=== PATIENT | female | born 1990 | race Caucasian/White ===

== ENCOUNTER 2017-10-21 07:30 | Outpatient (RCR) | payer OTHER, MEDICAID, SELFPAY ==
--- NOTE | 2017-10-13 15:49 | PT.OTN ---
Current Diagnoses Other intervertebral disc displacement, lumbar region (10/14/17) Radiculopathy, lumbar region (10/14/17) Transition note: On October 13, 2017 our therapy services consisting of Speech, Occupational, and Physical Therapy transitioned from the [employer] electronic documentation system to a new [employer] electronic documentation system.?? All documentation prior to October 13 can be found under [employer] saved data. From October 13 forward all medical record documentation will be in [employer]1.
--- NOTE | 2017-10-14 09:39 | PT.OTN ---
Current Diagnoses Other intervertebral disc displacement, lumbar region (10/14/17) Radiculopathy, lumbar region (10/14/17) Physical Therapy Treatment Note PT-OP-A Visit Information Start: 10/14/17 09:12 Freq: Status: Active Protocol: Activity Type Activity Date Activity User E-Sign Co-Sign Detail Recorded Client Recorded Date Recorded By Document 10/14/17 09:13 AMB [email or web address] 10/14/17 09:39 AMB 10/14/17 09:13 Out-Patient Physical Therapy Visit Information [Visit Information] -Visit Type Treatment Note -Visit Note 24 visits per calendar year from insurance, POC expires . -Visit Start Time 07:30 -Visit Stop Time 08:15 -Total Visit Minutes 45 -Visit Number 9 PT-OP-C Subjective Start: 10/14/17 09:12 Freq: Status: Active Protocol: Activity Type Activity Date Activity User E-Sign Co-Sign Detail Recorded Client Recorded Date Recorded By Document 10/14/17 09:13 AMB [email or web address] 10/14/17 09:39 AMB 10/14/17 09:13 OP-PT Subjective [Patient Comments] -Patient Comments Pt has an appointment with Dr. Doe later today and they will discuss return to work. -Patient Reported Progress Improving PT-OP-Q Treatments Start: 10/14/17 09:12 Freq: Status: Active Protocol: Activity Type Activity Date Activity User E-Sign Co-Sign Detail Recorded Client Recorded Date Recorded By Document 10/14/17 09:13 AMB [email or web address] 10/14/17 09:39 AMB 10/14/17 09:13 Cardio Equipment [Elliptical] -Duration (Minutes) 5 -Resistance 4 Gym Equipment [Shuttle Balance] 1 -Details RED squats EO -Reps/Duration 2x10 Therapeutic Exercises [Supine Exercises] 1 -Supine Exercise Name From 90-90 tap down -Reps/Minutes 2 x10 [Prone Exercises] 1 -Prone Exercise Name Quadruped hip extension -Side bilateral -Reps/Minutes 2x10 [Sidelying Exercises] 1 -Sidelying Exercise Name hip abduction -Side right -Reps/Minutes 2x10 [Standing Exercises] 2 -Standing Exercise Name Single leg heel raise -Side right -Reps/Minutes 4x5 1 -Standing Exercise Name calf stretch -Side bilateral -Equipment Used SABINA -Reps/Minutes 30 sec x3 Manual Therapy Treatment [Soft Tissue Mobilization] 1 -Body Location Low back -Mobilization Type Cross-Friction -Intensity/Depth Superficial -Body Position Sidelying -Comments 1 scab at proximal end of scar PT-OP-T Assessment and Plan Start: 10/14/17 09:12 Freq: Status: Active Protocol: Activity Type Activity Date Activity User E-Sign Co-Sign Detail Recorded Client Recorded Date Recorded By Document 10/14/17 09:13 AMB [email or web address] 10/14/17 09:39 AMB 10/14/17 09:13 Physical Therapy Assessment [Assessment Summary] -Assessment The patient states that she is doing better with being aware of her body mechanics, she is hoping to return to work soon, but was encouraged to go slow and be very aware of her mechanics. Physical Therapy Plan [Next Visit Focus/Plan] -Next Visit Plan Progress stabilization, progress lifting technique for return to work.
--- NOTE | 2017-10-21 09:21 | PT.OTN ---
Current Diagnoses Other intervertebral disc displacement, lumbar region (10/21/17) Radiculopathy, lumbar region (10/21/17) Physical Therapy Treatment Note PT-OP-A Visit Information Start: 10/14/17 09:12 Freq: Status: Active Protocol: Document 10/21/17 07:43 AMB (Rec: 10/21/17 07:46 AMB [id number]) Out-Patient Physical Therapy Visit Information Visit Information Visit Type Treatment Note Visit Note 24 visits per calendar year, POC expires 11/09. Visit Start Time 07:30 Visit Stop Time 08:15 Total Visit Minutes 45 Visit Number 10 Evaluation Information Evaluation Date 09/10/17 PT-OP-C Subjective Start: 10/14/17 09:12 Freq: Status: Active Protocol: Document 10/21/17 07:48 AMB (Rec: 10/21/17 07:50 AMB [id number]) OP-PT Subjective Patient Comments Patient Comments Pt is back at work now. Sore in muscles, but otherwise feeling well. Denies back pain. Patient Reported Progress Improving PT-OP-Q Treatments Start: 10/14/17 09:12 Freq: Status: Active Protocol: Document 10/21/17 09:03 AMB (Rec: 10/21/17 09:21 AMB [id number]) Therapeutic Exercises Supine Exercises 5 Supine Exercise Name lower trunk rotation Reps/Minutes 10 4 Supine Exercise Name Bridge Reps/Minutes 2 x 12 3 Supine Exercise Name calf stretch Reps/Minutes 30 sec x 4 2 Supine Exercise Name hamstring stretch Reps/Minutes 30 sec x 4 1 Supine Exercise Name From 90-90 tap down Reps/Minutes 2 x10 Therapeutic Activity Therapeutic Activity 1 Name lifting training Reps/Minutes 15 min Comments 10 # floor to waist, waist to head height. May need a step stool to safely get laundry bags into main hamper (above head). Manual Therapy Treatment Soft Tissue Mobilization 1 Body Location Low back Mobilization Type Cross-Friction Intensity/Depth Superficial Body Position Sidelying Comments Completely closed, scar tissue more at proximal edge. 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 Physical Therapy Plan Next Visit Focus/Plan Next Visit Plan Progress lifting technique, at 10 # currently without issue
--- NOTE | 2017-12-01 08:09 | PT.OPDS ---
Current Diagnoses Other intervertebral disc displacement, lumbar region (10/21/17) Radiculopathy, lumbar region (10/21/17) Provider Visit Care Team Role Provider Type Kirk Holland MD Family Provider Physician Primary Care Provider Specialty: Family Practice Address: [facility] [place], [address] Email: [email or web address] Carissa Charles PA-C Attending Provider Physician Dining Car Conductor Specialty: Orthopedic Surgery Address: [address] [place] [address], [id number] Email: [email or web address] Visit Number Visit Number 9 Discharge Summary PT-OP-C Subjective Start: 10/14/17 09:12 Freq: Status: Active Protocol: Document 10/21/17 07:48 AMB (Rec: 10/21/17 07:50 AMB [id number]) OP-PT Subjective Patient Comments Patient Comments Pt is back at work now. Sore in muscles, but otherwise feeling well. Denies back pain. Patient Reported Progress Improving PT-OP-T Assessment and Plan Start: 10/14/17 09:12 Freq: Status: Active Protocol: Document 12/01/17 07:57 AMB (Rec: 12/01/17 08:09 AMB [email or web address]) Physical Therapy Assessment Goals 1 Impairment Lift/carry Short Term Goal (STG) The patient will lift 10 pounds from floor to waist height with good body mechanics without an increase in back pain. MET STG Duration 4 weeks Rehab Office Coordinator Goal (LTG) The patient will be able to perform modified work activities for 8 hours without increasing her back pain. MET LTG Duration 8 weeks Assessment Summary Assessment The patient was seen for a total of 10 visits. At the time of her last visit on October 21, she had returned to work and was careful with how she was moving, and overall did not feel back pain or radiating leg pain with work. She continued to have some core and right leg weakness at her last visit. Physical Therapy Plan Discharge Physical Therapy Discharge Reasons No Longer Attending PT Discharge Comments The patient has been quite sick with a respiratory illness. She stated that she would like to return to PT for a few more visits, but wants to be well first. Since she has not attended PT in 40 days , she would be welcome to return to PT when she is feeling better, but will need a new referral at that time.
== END 2017-12-02 15:01 ==
LOC: PHYS 07:30
PROVIDERS: Family Provider Family Medicine; PCP Family Medicine; Visit Provider Physician Assistant
DX: M51.26 Other intervertebral disc displacement, lumbar region (principal); M54.16 Radiculopathy, lumbar region
CPT/HCPCS: 97110; 97140; 97530

== ENCOUNTER → 2017-11-27 07:06 | Outpatient (CLI) | payer OTHER, MEDICAID, SELFPAY ==
--- NOTE | 2017-11-27 | DI.RAD.S_ITS ---
PROCEDURE: FL UPPER GI W AIR INDICATIONS: 27 year-old female with new onset of throat soreness and dysphagia. COMPARISON: None. 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 Intrauterine contraceptive device is present. No suspicious abdominal calcifications. Visualized solid organ contours appear normal. Bony structures appear unremarkable. Esophagus: Esophageal and pharyngeal mucosa is normal on air-contrast views. On single-contrast views, there is normal esophageal peristalsis. No strictures, extrinsic mass effects, or diverticula. There is small hiatal hernia, and small elicited gastroesophageal reflux with patient rollover. There is normal transit of a calibrated barium tablet through the esophagus. Stomach: The stomach is normally distensible, with normal rugal fold thickness. No mucosal masses or ulcers. Pylorus and duodenal bulb appear normal in morphology. Duodenal folds are normal in thickness as well. 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 IMPRESSION: 1. Small hiatal hernia, as well as small elicited gastroesophageal reflux during the exam. 2. No mucosal abnormalities of the stomach, esophagus, or pharynx identified. Dictated by: Jason Rutledge M.D. on 11/27/2017 at 8:34 Approved by: Jason Rutledge M.D. on 11/27/2017 at 8:37
== END ==
PROVIDERS: Family Provider Family Medicine; PCP Family Medicine; Visit Provider Family Medicine
DX: R13.10 Dysphagia, unspecified (principal); K44.9 Diaphragmatic hernia without obstruction or gangrene; K21.9 Gastro-esophageal reflux disease without esophagitis
CPT/HCPCS: 74247

== ENCOUNTER → 2018-05-05 09:47 | Outpatient (CLI) | payer SELFPAY | DX: Z23 Encounter for immunization (principal) | CPT/HCPCS: 90471; 90686 ==

== ENCOUNTER → 2018-12-17 09:10 | Outpatient (CLI) | payer OTHER, MEDICAID, SELFPAY ==
--- NOTE | 2018-12-17 | DI.US.S_ITS ---
PROCEDURE: US PELVIC COMPLETE INDICATIONS: PAIN TECHNIQUE: Real-time scanning was performed of the pelvic organs, with image documentation. Additional endovaginal scanning was necessary due to incomplete visualization of the adnexal and endometrial structures by transabdominal scanning. COMPARISON: [facility], , PELVIC COMPLETE, 06/05/2012, 19:36. FINDINGS: Transabdominal scanning: Limited scanning through the kidneys shows no hydronephrosis. No pathologic free abdominal or pelvic fluid. Endovaginal scanning: Uterus: Uterus is normal in size at 9.0 x 4.4 x 5.0 cm. The endometrium measures 9 mm in combined thickness. An intrauterine device is visualized within the endometrial cavity and appropriately positioned. Ovaries: The right ovary measures 2.6 x 1.6 x 2.6 cm. The left ovary measures 3.3 x 1.7 x 1.8 cm. Possible isoechoic lesion in the left ovary measuring approximately 1.7 cm in maximum dimension which may represent a collapsing cyst versus isoechoic mass versus artifact. IMPRESSION: 1. An intrauterine device is identified within the endometrial cavity and appears to be appropriately positioned. 2. A possible 1.7 cm isoechoic focus within the left ovary with peripheral vascularity which may represent artifact versus a collapsing cyst versus isoechoic mass. Recommend followup pelvic ultrasound in 8-12 weeks to document stability versus resolution. 3. Otherwise, unremarkable pelvic ultrasound. Dictated by: Helio Hughes M.D. on 12/17/2018 at 9:59 Approved by: Helio Hughes M.D. on 12/17/2018 at 10:08
== END ==
PROVIDERS: Family Provider Family Medicine; PCP Family Medicine; Visit Provider Nurse Practitioner Family
DX: R10.2 Pelvic and perineal pain (principal); Z97.5 Presence of (intrauterine) contraceptive device
CPT/HCPCS: 76830; 76856

== ENCOUNTER → 2019-03-18 09:11 | Outpatient (CLI) | payer OTHER, MEDICAID, SELFPAY ==
--- NOTE | 2019-03-18 | DI.US.S_ITS ---
PROCEDURE: US PELVIC COMPLETE INDICATIONS: FOLLOW-UP LEFT OVARIAN CYST TECHNIQUE: Real-time scanning was performed of the pelvic organs, with image documentation. Additional endovaginal scanning was necessary due to incomplete visualization of the adnexal and endometrial structures by transabdominal scanning. COMPARISON: [facility], , US PELVIC COMPLETE, 12/17/2018, 9:25. FINDINGS: Transabdominal scanning: Limited scanning through the kidneys shows no hydronephrosis. No pathologic free abdominal or pelvic fluid. Endovaginal scanning: Uterus: Uterus is normal in size at 8.7 x 4.1 x 5.1 cm. The endometrium measures 5.3 mm in combined thickness. Intrauterine device in expected position. Ovaries: Physiologic cyst associated with the left ovary has resolved and the ovaries are normal measuring 3.0 x 1.9 x 2.7 cm on the right and 3.1 x 1.6 x 1.2 cm on the left. IMPRESSION: Resolved left ovarian cyst. Dictated by: Maxi Hodge [facility] Interpreted: Nhi Leigh MD on 03/18/2019 at 10:09 Approved by: Nhi Leigh M.D. on 03/21/2019 at 18:47
== END ==
PROVIDERS: Family Provider Family Medicine; PCP Family Medicine; Visit Provider Nurse Practitioner Family
DX: R93.89 Abnormal findings on diagnostic imaging of other specified body structures (principal); Z97.5 Presence of (intrauterine) contraceptive device; Z87.42 Personal history of other diseases of the female genital tract
CPT/HCPCS: 76830; 76856

== ENCOUNTER → 2019-04-20 11:18 | Outpatient (CLI) | payer OTHER, SELFPAY ==
--- NOTE | 2019-04-20 | DI.RAD.S_ITS ---
PROCEDURE: [place] SHOULDER INJECTION MR/CT RT INDICATIONS: Right shoulder pain. TECHNIQUE: The indications, alternatives, benefits, risks, and complications of the procedure were explained to the patient. Written informed consent was obtained and placed in the chart. The shoulder was examined fluoroscopically and a site for needle placement chosen for entry into the right glenohumeral joint from an anterior approach. The skin was prepped and draped in a sterile fashion, and 1% lidocaine infiltrated from skin down to joint capsule. A spinal needle was inserted into the glenohumeral joint, and a small amount of iodinated contrast media injected to confirm intra-articular placement of the needle tip. This was followed by approximately 12 mL dilute solution of a gadolinium containing MR contrast agent. The needle was removed and a dressing was applied. The patient was given postprocedural instructions and sent to the MR suite for MR imaging. FINDINGS: A single fluoroscopic spot image demonstrates intra-articular location of injected iodinated contrast. IMPRESSION: Successful fluoroscopically guided administration of dilute Gadolinium solution into the right shoulder joint for MR arthrogram. Dictated by: Juan David James M.D. on 04/20/2019 at 13:06 Approved by: Juan David James M.D. on 04/20/2019 at 13:08
--- NOTE | 2019-04-20 | DI.MRI.S_ITS ---
PROCEDURE: MR SHOULDER RT W CON INDICATIONS: right shoulder pain TECHNIQUE: After the administration of 12 mL of dilute intra-articular Gadolinium contrast, oblique coronal T1 and T2 spin echo with fat saturation, oblique sagittal T1 spin echo with and without fat saturation, oblique sagittal T2 fast spin echo with fat saturation, axial T1 spin echo with fat saturation through the shoulder. COMPARISON: [facility], , [place] SHOULDER INJECTION MR/CT RT, 04/20/2019, 11:45. [facility], CR, XR SHOULDER 2+ VIEWS RIGHT, 04/01/2019, 9:51. FINDINGS: Image quality: Diagnostic. Rotator cuff: No full-thickness or high-grade partial-thickness tear of the rotator cuff is identified. There is mild increased signal evident involving the distal supraspinatus and infraspinatus tendons without significant tearing. The teres minor and subscapularis tendons appear to be intact. There is no significant atrophy of the rotator cuff muscles. Bones and bursae: No acute fracture, dislocation, or suspicious osseous lesion is evident involving the right shoulder bones. No significant degenerative changes of the glenohumeral joint are present. There mild degenerative changes of the acromioclavicular joint with slight downsloping of the lateral acromion. There is adequate distention of the glenohumeral joint with the injected contrast. No loose intra-articular joint bodies are evident. This contrast is not seen extending into the subacromial subdeltoid bursa to suggest a nonvisualized full-thickness tear of the rotator cuff. A portion of the contrast is noted to extend beyond the inferior joint capsule. Capsule and soft tissues: There appears to be a small posterosuperior labral tear extending from the 12 o'clock position to the 2 o'clock position. No detached labral fragments or large paralabral cysts are evident. The long head of the biceps tendon is normally positioned within the bicipital groove and is otherwise intact and unremarkable. Again, contrast does extend beyond the inferior joint capsule, compatible with perforating tearing of the inferior glenohumeral ligament. The middle and superior glenohumeral ligaments are intact. IMPRESSION: 1. Mild supraspinatus and infraspinatus tendinopathy without significant tearing. 2. Perforating tears of the inferior glenohumeral ligament. 3. Small posterosuperior labral tear. 4. Mild degenerative changes of the acromioclavicular joint with mild lateral acromial downsloping. Please correlate clinically to exclude subacromial impingement. Dictated by: Huy Caro M.D. on 04/20/2019 at 13:45 Approved by: Huy Caro M.D. on 04/20/2019 at 13:47
== END ==
PROVIDERS: PCP Family Medicine; Visit Provider Orthopaedic Surgery
DX: M25.511 Pain in right shoulder (principal); S43.491A Other sprain of right shoulder joint, initial encounter
CPT/HCPCS: 23350; 73222; 77002

== ENCOUNTER 2020-01-19 10:30 | Outpatient (RCR) | payer OTHER, SELFPAY, MEDICAID ==
--- NOTE | 2019-02-02 16:00 | PT.OIE ---
Current Diagnoses Pain in right shoulder (02/02/19) Past Surgical History Status post delivery (12/17/11) Status post loop electrosurgical excision procedure (LEEP) of cervix (11/25/13) Provider Visit Care Team Role Provider Type Kirk Holland MD Attending Provider Physician Family Provider Primary Care Provider Specialty: Family Practice Address: [address] [place] [address], [facility] Email: [email or web address] Physical Therapy Initial Evaluation PT-OP-A Visit Information Start: 02/02/19 08:51 Freq: Status: Active Protocol: Document 02/02/19 09:00 AMB (Rec: 02/02/19 10:25 AMB [email or web address]) Out-Patient Physical Therapy Visit Information Visit Information Visit Type Initial Evaluation Visit Start Time 09:00 Visit Stop Time 09:45 Total Visit Minutes 45 Visit Number 1 PT-OP-B Current Condition Start: 02/02/19 08:51 Freq: Status: Active Protocol: Document 02/02/19 09:00 AMB (Rec: 02/06/19 10:47 AMB [email or web address]) Current Condition History of Current Condition Onset Date a few months ago Current Complaints R shoulder pain History of Current Condition Chrissy was moving a laundry cart at work and the wheel got caught and her right shoulder was adducted and she felt sudden onset pain. She thought it would go away with time but has been getting worse. 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 She has been noticing clicking in the shoulder that has just started. The pain is worse with overhead movements and is located in the posterior aspect of the glenohumeral joint. She does have a previous back surgery history and has noticed a return of back pain in the last month first thing in the morning and when she is done with work. She has also noticed a pulling in her left foot for the past 3-4 months. Treatment Goals Patient/Caregiver Goals Reduce shoulder pain so she can work normally Prior Functional Status Baseline Function- ADL's Independent Baseline Function- Mobility Independent Current Functional Impairments (Reported) Functional Limitations- Work/School limited ability to push/pull, reach overhead, lift overhead Personal Factors Other Personal Factors That May Effect prior L5S1 discectomy Therapy/Recovery PT-OP-C Subjective Start: 02/02/19 08:51 Freq: Status: Active Protocol: Document 02/02/19 09:00 AMB (Rec: 02/02/19 10:25 AMB [email or web address]) Patient Questionnaires Quick Dash- Upper Extremity Quick Dash UE Score 50 Quick Dash UE Impairment 40 to 59% Impaired (Score 40- 59) OP-PT Pain Assessment Location Right Shoulder Pain Location Details posterior shoulder Intensity 6 Scale Used Numeric (1 - 10) PT-OP-J Posture/Palpation/Skin Start: 02/02/19 08:51 Freq: Status: Active Protocol: Document 02/02/19 09:00 AMB (Rec: 02/02/19 10:31 AMB [email or web address]) Posture Evaluation Comments Posture Comments mild forward shoulder posture in sitting PT-OP-K Range of Motion Start: 02/02/19 08:51 Freq: Status: Active Protocol: Document 02/02/19 09:00 AMB (Rec: 02/02/19 10:31 AMB [email or web address]) Shoulder Goniometric Range of Motion Shoulder Left Active Shoulder ROM WFL Yes Testing Position Sitting Internal Rotation Behind Back (text) T6 Right Active Testing Position Sitting Flexion 160 Abduction 110 External Rotation at 0 degrees Abduction 70 Internal Rotation Behind Back (text) gluteal PT-OP-L Special Tests Start: 02/02/19 08:51 Freq: Status: Active Protocol: Document 02/02/19 09:00 AMB (Rec: 02/02/19 10:31 AMB [email or web address]) Special Tests Shoulder Special Tests Acuna Yifan Impingement Test Results negative Neer Impingement Test Results positive Lift-Off Rotator Cuff Test Results positive PT-OP-M Strength Start: 02/02/19 08:51 Freq: Status: Active Protocol: Document 02/02/19 09:00 AMB (Rec: 02/06/19 10:47 AMB [email or web address]) Shoulder Strength Shoulder Manual Muscle Testing Right Flexion 4+ Good+ Extension 5 Normal Abduction (C5) 4 Good External Rotation 4+ Good+ Internal Rotation 4+ Good+ Comments abduction painful Left Flexion 5 Normal Extension 5 Normal Abduction (C5) 5 Normal External Rotation 5 Normal Internal Rotation 5 Normal PT-OP-Q Treatments Start: 02/02/19 08:51 Freq: Status: Active Protocol: Document 02/02/19 09:00 AMB (Rec: 02/06/19 10:47 AMB [email or web address]) Therapeutic Exercises Standing Exercises 1 Standing Exercise Name isometrics Reps/Minutes 10 Comments abduction, IR PT-OP-T Assessment and Plan Start: 02/02/19 08:51 Freq: Status: Active Protocol: Document 02/02/19 09:00 AMB (Rec: 02/06/19 10:58 AMB [email or web address]) Physical Therapy Assessment Rehab Potential Rehabilitation Potential Good Evaluation Complexity Number of Personal Factors/Comorbidities 1-2 Number of Body Systems Impaired 3 Clinical Presentation at Evaluation Stable Impairments Impairments Pain ROM Strength Goals Three Impairment pain Alf Goal (LTG) Chrissy will be able to work 4 hours with 3/10 pain or less. LTG Duration 8 weeks Two Impairment strength Short Term Goal (STG) Chrissy will increase her strength to 5/5 in all planes. STG Duration 4 weeks Bark Tanner Goal (LTG) Chrissy will lift 20 pounds to shoulder height without an increase in baseline pain. LTG Duration 8 weeks One Impairment ROM Short Term Goal (STG) Chrissy will increase abduction AROM to 170 degrees without pain. Assessment Summary Assessment Chrissy attends physical therapy with signs and symptoms of impingement and rotator cuff weakness s/p injury at work. Unfortunately her pain has been increasing even though she is trying to take it easy. She will benefit from specific instruction in strengthening and inflammatory control to heal her shoulder so that she can return to being able to lift push and pull as much as she needs to at work. Physical Therapy Plan Frequency and Duration Frequency of Treatment 2x/Week Duration of Treatment 8 weeks Plan of Care Start Date 02/02/19 Plan of Care End Date 03/30/19 Therapeutic Interventions Therapeutic Interventions Aquatic Therapy Home Exercise Program Joint Mobilizations Manual Therapy Neuromuscular Re-education Self-Care/Home Management Therapeutic Activities Therapeutic Exercises Modalities Cold Pack/Ice Massage Electric Stimulation Ultrasound Next Visit Focus/Plan Next Note Type Treatment Note Next Visit Plan Progress isometrics and work into AAROM.
--- NOTE | 2019-02-02 16:00 | PT.OPPOC ---
Current Diagnoses Pain in right shoulder (02/02/19) Provider Visit Care Team Role Provider Type Kirk Holland MD Attending Provider Physician Family Provider Primary Care Provider Specialty: Family Practice Address: [address] [place] [address], [facility], [place], [address] Email: [email or web address] Plan Of Care PT-OP-T Assessment and Plan Start: 02/02/19 08:51 Freq: Status: Active Protocol: Document 02/02/19 09:00 AMB (Rec: 02/06/19 10:58 AMB [email or web address]) Physical Therapy Assessment Rehab Potential Rehabilitation Potential Good Evaluation Complexity Number of Personal Factors/Comorbidities 1-2 Number of Body Systems Impaired 3 Clinical Presentation at Evaluation Stable Impairments Impairments Pain ROM Strength Goals Three Impairment pain Intermediate Goal (LTG) Chrissy will be able to work 4 hours with 3/10 pain or less. LTG Duration 8 weeks Two Impairment strength Short Term Goal (STG) Chrissy will increase her strength to 5/5 in all planes. STG Duration 4 weeks Edge Sander Goal (LTG) Chrissy will lift 20 pounds to shoulder height without an increase in baseline pain. LTG Duration 8 weeks One Impairment ROM Short Term Goal (STG) Chrissy will increase abduction AROM to 170 degrees without pain. Assessment Summary Assessment Chrissy attends physical therapy with signs and symptoms of impingement and rotator cuff weakness s/p injury at work. Unfortunately her pain has been increasing even though she is trying to take it easy. She will benefit from specific instruction in strengthening and inflammatory control to heal her shoulder so that she can return to being able to lift push and pull as much as she needs to at work. Physical Therapy Plan Frequency and Duration Frequency of Treatment 2x/Week Duration of Treatment 8 weeks Plan of Care Start Date 02/02/19 Plan of Care End Date 03/30/19 Therapeutic Interventions Therapeutic Interventions Aquatic Therapy Home Exercise Program Joint Mobilizations Manual Therapy Neuromuscular Re-education Self-Care/Home Management Therapeutic Activities Therapeutic Exercises Modalities Cold Pack/Ice Massage Electric Stimulation Ultrasound Next Visit Focus/Plan Next Note Type Treatment Note Next Visit Plan Progress isometrics and work into AAROM. Plan of Care Dates Plan of Care Start Date 02/02/19 Plan of Care End Date 03/30/19 Please Sign and Return: I have reviewed this Plan of Care and certify that the skilled therapy services above are required to meet the patient?s needs. Physician Signature Date Printed Name and Credentials Clinical Instructor Signature Printed Name and Credentials
--- NOTE | 2019-02-08 12:49 | PT.OTN ---
Current Diagnoses Pain in right shoulder (02/08/19) Physical Therapy Treatment Note PT-OP-A Visit Information Start: 02/02/19 08:51 Freq: Status: Active Protocol: Document 02/08/19 07:30 AMB (Rec: 02/08/19 07:36 AMB [id number]) Out-Patient Physical Therapy Visit Information Visit Information Visit Type Treatment Note Visit Start Time 07:30 Visit Stop Time 08:15 Total Visit Minutes 45 Visit Number 2 PT-OP-B Current Condition Start: 02/02/19 08:51 Freq: Status: Active Protocol: Document 02/02/19 09:00 AMB (Rec: 02/06/19 10:47 AMB [email or web address]) Current Condition History of Current Condition Onset Date a few months ago Current Complaints R shoulder pain History of Current Condition Chrissy was moving a laundry cart at work and the wheel got caught and her right shoulder was adducted and she felt suddent onset pain. She thought it would go away with time but has been getting worse. 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 She has been noticing clicking in the shoulder that has just started. The pain is worse with overhead movements and is located in the posterior aspect of the glenohumeral joint. She does have a previous back surgery history and has noticed a return of back pain in the last month first thing in the morning and when she is done with work. She has also noticed a pulling in her left foot for the past 3-4 months. Treatment Goals Patient/Caregiver Goals Reduce shoulder pain so she can work normally Prior Functional Status Baseline Function- ADL's Independent Baseline Function- Mobility Independent Current Functional Impairments (Reported) Functional Limitations- Work/School limited ability to push/pull, reach overhead, lift overhead Personal Factors Other Personal Factors That May Effect prior L5S1 discectomy Therapy/Recovery PT-OP-C Subjective Start: 02/02/19 08:51 Freq: Status: Active Protocol: Document 02/08/19 07:30 AMB (Rec: 02/08/19 07:36 AMB [id number]) OP-PT Subjective Patient Comments Patient Comments Pt reports arm was quite sore after working and reaching quickly for scrubs as they fell off the cart. PT-OP-J Posture/Palpation/Skin Start: 02/02/19 08:51 Freq: Status: Active Protocol: Document 02/02/19 09:00 AMB (Rec: 02/02/19 10:31 AMB [email or web address]) Posture Evaluation Comments Posture Comments mild forward shoulder posture in sitting PT-OP-K Range of Motion Start: 02/02/19 08:51 Freq: Status: Active Protocol: Document 02/02/19 09:00 AMB (Rec: 02/02/19 10:31 AMB [email or web address]) Shoulder Goniometric Range of Motion Shoulder Left Active Shoulder ROM WFL Yes Testing Position Sitting Internal Rotation Behind Back (text) T6 Right Active Testing Position Sitting Flexion 160 Abduction 110 External Rotation at 0 degrees Abduction 70 Internal Rotation Behind Back (text) gluteal PT-OP-L Special Tests Start: 02/02/19 08:51 Freq: Status: Active Protocol: Document 02/02/19 09:00 AMB (Rec: 02/02/19 10:31 AMB [email or web address]) Special Tests Shoulder Special Tests Acuna Yifan Impingement Test Results negative Neer Impingement Test Results positive Lift-Off Rotator Cuff Test Results positive PT-OP-M Strength Start: 02/02/19 08:51 Freq: Status: Active Protocol: Document 02/02/19 09:00 AMB (Rec: 02/06/19 10:47 AMB [email or web address]) Shoulder Strength Shoulder Manual Muscle Testing Right Flexion 4+ Good+ Extension 5 Normal Abduction (C5) 4 Good External Rotation 4+ Good+ Internal Rotation 4+ Good+ Comments abduction painful Left Flexion 5 Normal Extension 5 Normal Abduction (C5) 5 Normal External Rotation 5 Normal Internal Rotation 5 Normal PT-OP-Q Treatments Start: 02/02/19 08:51 Freq: Status: Active Protocol: Document 02/08/19 07:30 AMB (Rec: 02/08/19 08:21 AMB [id number]) Cardio Equipment Upper Body Ergometer (UBE) Duration (Minutes) 5 RPM 60 Therapeutic Exercises Supine Exercises 5 Supine Exercise Name scap punch Reps/Minutes 2x10 Comments AROM 4 Supine Exercise Name alternating isometrics Comments arm at 90 degrees 3 Supine Exercise Name flexion Reps/Minutes 1x10 Comments AROM 0-60 Sidelying Exercises 2 Sidelying Exercise Name shoulder ER Reps/Minutes 1x10 Comments AROM 1 Sidelying Exercise Name shoulder abduction Reps/Minutes 1x10 Comments AROM Standing Exercises 2 Standing Exercise Name t band ER/IR Resistance #2 Reps/Minutes 1x10 ea Manual Therapy Treatment Soft Tissue Mobilization 1 Body Location R GH Mobilization Type Cross-Friction Strumming Intensity/Depth Moderate Body Position Hooklying Taping 1 Body Location R GH Type of Tape Kinesio Tape Comments 1 Y for superior support, I for scapular retraction PT-OP-R Modalities Start: 02/02/19 08:51 Freq: Status: Active Protocol: Document 02/08/19 07:30 AMB (Rec: 02/08/19 12:49 AMB [email or web address]) Hot Pack/Cold Pack Treatment Cold Pack Location R GH Patient Position Hooklying Treatment Duration (minutes) 10 PT-OP-T Assessment and Plan Start: 02/02/19 08:51 Freq: Status: Active Protocol: Document 02/08/19 07:30 AMB (Rec: 02/08/19 08:16 AMB [email or web address]) Physical Therapy Assessment Assessment Summary Assessment Chrissy continues to have pain with quick motions and overhead movement, started with rotator cuff stabilization and will progress into scapular stabilization Physical Therapy Plan Next Visit Focus/Plan Next Note Type Treatment Note Next Visit Plan Progress into AROM- resistance as tolerated
--- NOTE | 2019-02-10 11:31 | PT.OTN ---
Current Diagnoses Pain in right shoulder (02/10/19) Physical Therapy Treatment Note PT-OP-A Visit Information Start: 02/02/19 08:51 Freq: Status: Active Protocol: Document 02/10/19 10:30 AMB (Rec: 02/10/19 10:37 AMB [id number]) Out-Patient Physical Therapy Visit Information Visit Information Visit Type Treatment Note Visit Start Time 07:30 Visit Stop Time 08:15 Total Visit Minutes 45 Visit Number 3 PT-OP-B Current Condition Start: 02/02/19 08:51 Freq: Status: Active Protocol: Document 02/02/19 09:00 AMB (Rec: 02/06/19 10:47 AMB [email or web address]) Current Condition History of Current Condition Onset Date a few months ago Current Complaints R shoulder pain History of Current Condition Chrissy was moving a laundry cart at work and the wheel got caught and her right shoulder was adducted and she felt suddent onset pain. She thought it would go away with time but has been getting worse. 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 She has been noticing clicking in the shoulder that has just started. The pain is worse with overhead movements and is located in the posterior aspect of the glenohumeral joint. She does have a previous back surgery history and has noticed a return of back pain in the last month first thing in the morning and when she is done with work. She has also noticed a pulling in her left foot for the past 3-4 months. Treatment Goals Patient/Caregiver Goals Reduce shoulder pain so she can work normally Prior Functional Status Baseline Function- ADL's Independent Baseline Function- Mobility Independent Current Functional Impairments (Reported) Functional Limitations- Work/School limited ability to push/pull, reach overhead, lift overhead Personal Factors Other Personal Factors That May Effect prior L5S1 discectomy Therapy/Recovery PT-OP-C Subjective Start: 02/02/19 08:51 Freq: Status: Active Protocol: Document 02/10/19 10:30 AMB (Rec: 02/10/19 10:37 AMB [id number]) OP-PT Subjective Patient Comments Patient Comments Pt was trying to take it easy but still felt like the arm was more painful at the end of her shift. PT-OP-J Posture/Palpation/Skin Start: 02/02/19 08:51 Freq: Status: Active Protocol: Document 02/02/19 09:00 AMB (Rec: 02/02/19 10:31 AMB [email or web address]) Posture Evaluation Comments Posture Comments mild forward shoulder posture in sitting PT-OP-K Range of Motion Start: 02/02/19 08:51 Freq: Status: Active Protocol: Document 02/02/19 09:00 AMB (Rec: 02/02/19 10:31 AMB [email or web address]) Shoulder Goniometric Range of Motion Shoulder Left Active Shoulder ROM WFL Yes Testing Position Sitting Internal Rotation Behind Back (text) T6 Right Active Testing Position Sitting Flexion 160 Abduction 110 External Rotation at 0 degrees Abduction 70 Internal Rotation Behind Back (text) gluteal PT-OP-L Special Tests Start: 02/02/19 08:51 Freq: Status: Active Protocol: Document 02/02/19 09:00 AMB (Rec: 02/02/19 10:31 AMB [email or web address]) Special Tests Shoulder Special Tests Acuna Yifan Impingement Test Results negative Neer Impingement Test Results positive Lift-Off Rotator Cuff Test Results positive PT-OP-M Strength Start: 02/02/19 08:51 Freq: Status: Active Protocol: Document 02/02/19 09:00 AMB (Rec: 02/06/19 10:47 AMB [email or web address]) Shoulder Strength Shoulder Manual Muscle Testing Right Flexion 4+ Good+ Extension 5 Normal Abduction (C5) 4 Good External Rotation 4+ Good+ Internal Rotation 4+ Good+ Comments abduction painful Left Flexion 5 Normal Extension 5 Normal Abduction (C5) 5 Normal External Rotation 5 Normal Internal Rotation 5 Normal PT-OP-Q Treatments Start: 02/02/19 08:51 Freq: Status: Active Protocol: Document 02/10/19 10:30 AMB (Rec: 02/10/19 11:30 AMB [email or web address]) Cardio Equipment Upper Body Ergometer (UBE) Duration (Minutes) 5 RPM 60 Other fwd/backward Therapeutic Exercises Supine Exercises 5 Supine Exercise Name scap punch Reps/Minutes 2x10 Comments AROM 4 Supine Exercise Name alternating isometrics Comments arm at 90 degrees Prone Exercises 1 Prone Exercise Name I, Y, T Resistance AROM Reps/Minutes 2x10 ea Standing Exercises 2 Standing Exercise Name t band ER/IR Resistance #2 Reps/Minutes 1x12 ea Manual Therapy Treatment Soft Tissue Mobilization 1 Body Location R GH Mobilization Type Cross-Friction,Strumming Intensity/Depth Moderate Body Position Hooklying PT-OP-R Modalities Start: 02/02/19 08:51 Freq: Status: Active Protocol: Document 02/10/19 10:30 AMB (Rec: 02/10/19 11:31 AMB [email or web address]) Hot Pack/Cold Pack Treatment Cold Pack Location R GH Patient Position Hooklying Treatment Duration (minutes) 10 PT-OP-T Assessment and Plan Start: 02/02/19 08:51 Freq: Status: Active Protocol: Document 02/10/19 10:30 AMB (Rec: 02/10/19 11:30 AMB [email or web address]) Physical Therapy Assessment Assessment Summary Assessment Chrissy could easily be flared up again by overhead reaching and lifting at work, but was able to tolerate all exercises without an increase in pain as long as we modified the ROM to avoid pain at end range. Physical Therapy Plan Next Visit Focus/Plan Next Note Type Treatment Note Next Visit Plan Progress into AROM- resistance as tolerated
--- NOTE | 2019-02-16 16:00 | PT.OTN ---
Current Diagnoses Pain in right shoulder (02/16/19) Physical Therapy Treatment Note PT-OP-A Visit Information Start: 02/02/19 08:51 Freq: Status: Active Protocol: Document 02/16/19 13:45 AMB (Rec: 02/17/19 07:31 AMB [email or web address]) Out-Patient Physical Therapy Visit Information Visit Information Visit Type Treatment Note Visit Start Time 07:30 Visit Stop Time 08:15 Total Visit Minutes 45 Visit Number 4 PT-OP-B Current Condition Start: 02/02/19 08:51 Freq: Status: Active Protocol: Document 02/02/19 09:00 AMB (Rec: 02/06/19 10:47 AMB [email or web address]) Current Condition History of Current Condition Onset Date a few months ago Current Complaints R shoulder pain History of Current Condition Chrissy was moving a laundry cart at work and the wheel got caught and her right shoulder was adducted and she felt suddent onset pain. She thought it would go away with time but has been getting worse. 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 She has been noticing clicking in the shoulder that has just started. The pain is worse with overhead movements and is located in the posterior aspect of the glenohumeral joint. She does have a previous back surgery history and has noticed a return of back pain in the last month first thing in the morning and when she is done with work. She has also noticed a pulling in her left foot for the past 3-4 months. Treatment Goals Patient/Caregiver Goals Reduce shoulder pain so she can work normally Prior Functional Status Baseline Function- ADL's Independent Baseline Function- Mobility Independent Current Functional Impairments (Reported) Functional Limitations- Work/School limited ability to push/pull, reach overhead, lift overhead Personal Factors Other Personal Factors That May Effect prior L5S1 discectomy Therapy/Recovery PT-OP-C Subjective Start: 02/02/19 08:51 Freq: Status: Active Protocol: Document 02/16/19 13:45 AMB (Rec: 02/17/19 07:31 AMB [email or web address]) OP-PT Subjective Patient Comments Patient Comments Pt PT-OP-J Posture/Palpation/Skin Start: 02/02/19 08:51 Freq: Status: Active Protocol: Document 02/02/19 09:00 AMB (Rec: 02/02/19 10:31 AMB [email or web address]) Posture Evaluation Comments Posture Comments mild forward shoulder posture in sitting PT-OP-K Range of Motion Start: 02/02/19 08:51 Freq: Status: Active Protocol: Document 02/02/19 09:00 AMB (Rec: 02/02/19 10:31 AMB [email or web address]) Shoulder Goniometric Range of Motion Shoulder Left Active Shoulder ROM WFL Yes Testing Position Sitting Internal Rotation Behind Back (text) T6 Right Active Testing Position Sitting Flexion 160 Abduction 110 External Rotation at 0 degrees Abduction 70 Internal Rotation Behind Back (text) gluteal PT-OP-L Special Tests Start: 02/02/19 08:51 Freq: Status: Active Protocol: Document 02/02/19 09:00 AMB (Rec: 02/02/19 10:31 AMB [email or web address]) Special Tests Shoulder Special Tests Acuna Yifan Impingement Test Results negative Neer Impingement Test Results positive Lift-Off Rotator Cuff Test Results positive PT-OP-M Strength Start: 02/02/19 08:51 Freq: Status: Active Protocol: Document 02/02/19 09:00 AMB (Rec: 02/06/19 10:47 AMB [email or web address]) Shoulder Strength Shoulder Manual Muscle Testing Right Flexion 4+ Good+ Extension 5 Normal Abduction (C5) 4 Good External Rotation 4+ Good+ Internal Rotation 4+ Good+ Comments abduction painful Left Flexion 5 Normal Extension 5 Normal Abduction (C5) 5 Normal External Rotation 5 Normal Internal Rotation 5 Normal PT-OP-Q Treatments Start: 02/02/19 08:51 Freq: Status: Active Protocol: Document 02/16/19 13:45 AMB (Rec: 02/17/19 09:11 AMB [email or web address]) Therapeutic Exercises Supine Exercises 5 Supine Exercise Name scap punch Reps/Minutes 2x10 Comments 2# 4 Supine Exercise Name alternating isometrics Comments arm at 90 degrees Prone Exercises 1 Prone Exercise Name I, Y, T Resistance AROM Reps/Minutes 2x10 ea Sidelying Exercises 2 Sidelying Exercise Name shoulder ER Reps/Minutes 1x10 Comments AROM 1 Sidelying Exercise Name shoulder abduction Reps/Minutes 1x10 Comments AROM Standing Exercises 2 Standing Exercise Name t band ER/IR Resistance #2 Reps/Minutes 1x12 ea Manual Therapy Treatment Soft Tissue Mobilization 1 Body Location R GH Mobilization Type Cross-Friction,Strumming Intensity/Depth Moderate Body Position Hooklying Taping 1 Body Location R GH Type of Tape Kinesio Tape Comments 1 Y for superior support, I for scapular retraction PT-OP-R Modalities Start: 02/02/19 08:51 Freq: Status: Active Protocol: Document 02/10/19 10:30 AMB (Rec: 02/10/19 11:31 AMB [email or web address]) Hot Pack/Cold Pack Treatment Cold Pack Location R GH Patient Position Hooklying Treatment Duration (minutes) 10 PT-OP-T Assessment and Plan Start: 02/02/19 08:51 Freq: Status: Active Protocol: Document 02/16/19 13:45 AMB (Rec: 02/17/19 08:15 AMB [email or web address]) Physical Therapy Assessment Assessment Summary Assessment Chrissy tolerated exercises well , but is worried about work as even washing things and reaching is increasing her pain, as opposed to just overhead lifting. Tolerates short duration of exercise, but sounds like after hours of using the arm the pain increases a lot. Did not increase exercises much today due to her recent exacerbation of pain at work. Physical Therapy Plan Next Visit Focus/Plan Next Note Type Treatment Note Next Visit Plan Progress into AROM- resistance as tolerated
--- NOTE | 2019-02-21 16:22 | PT.OTN ---
Current Diagnoses Pain in right shoulder (02/21/19) Physical Therapy Treatment Note PT-OP-A Visit Information Start: 02/02/19 08:51 Freq: Status: Active Protocol: Document 02/21/19 08:15 AMB (Rec: 02/21/19 08:47 AMB [email or web address]) Out-Patient Physical Therapy Visit Information Visit Information Visit Type Treatment Note Visit Start Time 07:30 Visit Stop Time 08:15 Total Visit Minutes 45 Visit Number 5 PT-OP-B Current Condition Start: 02/02/19 08:51 Freq: Status: Active Protocol: Document 02/02/19 09:00 AMB (Rec: 02/06/19 10:47 AMB [email or web address]) Current Condition History of Current Condition Onset Date a few months ago Current Complaints R shoulder pain History of Current Condition Chrissy was moving a laundry cart at work and the wheel got caught and her right shoulder was adducted and she felt suddent onset pain. She thought it would go away with time but has been getting worse. 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 She has been noticing clicking in the shoulder that has just started. The pain is worse with overhead movements and is located in the posterior aspect of the glenohumeral joint. She does have a previous back surgery history and has noticed a return of back pain in the last month first thing in the morning and when she is done with work. She has also noticed a pulling in her left foot for the past 3-4 months. Treatment Goals Patient/Caregiver Goals Reduce shoulder pain so she can work normally Prior Functional Status Baseline Function- ADL's Independent Baseline Function- Mobility Independent Current Functional Impairments (Reported) Functional Limitations- Work/School limited ability to push/pull, reach overhead, lift overhead Personal Factors Other Personal Factors That May Effect prior L5S1 discectomy Therapy/Recovery PT-OP-C Subjective Start: 02/02/19 08:51 Freq: Status: Active Protocol: Document 02/21/19 08:15 AMB (Rec: 02/21/19 08:47 AMB [id number]) OP-PT Subjective Patient Comments Patient Comments Pt has been taking it easy, and is sore in her shoulder thinks maybe she slept on it wrong. PT-OP-J Posture/Palpation/Skin Start: 02/02/19 08:51 Freq: Status: Active Protocol: Document 02/02/19 09:00 AMB (Rec: 02/02/19 10:31 AMB [email or web address]) Posture Evaluation Comments Posture Comments mild forward shoulder posture in sitting PT-OP-K Range of Motion Start: 02/02/19 08:51 Freq: Status: Active Protocol: Document 02/02/19 09:00 AMB (Rec: 02/02/19 10:31 AMB [email or web address]) Shoulder Goniometric Range of Motion Shoulder Left Active Shoulder ROM WFL Yes Testing Position Sitting Internal Rotation Behind Back (text) T6 Right Active Testing Position Sitting Flexion 160 Abduction 110 External Rotation at 0 degrees Abduction 70 Internal Rotation Behind Back (text) gluteal PT-OP-L Special Tests Start: 02/02/19 08:51 Freq: Status: Active Protocol: Document 02/02/19 09:00 AMB (Rec: 02/02/19 10:31 AMB [email or web address]) Special Tests Shoulder Special Tests Acuna Yifan Impingement Test Results negative Neer Impingement Test Results positive Lift-Off Rotator Cuff Test Results positive PT-OP-M Strength Start: 02/02/19 08:51 Freq: Status: Active Protocol: Document 02/02/19 09:00 AMB (Rec: 02/06/19 10:47 AMB [email or web address]) Shoulder Strength Shoulder Manual Muscle Testing Right Flexion 4+ Good+ Extension 5 Normal Abduction (C5) 4 Good External Rotation 4+ Good+ Internal Rotation 4+ Good+ Comments abduction painful Left Flexion 5 Normal Extension 5 Normal Abduction (C5) 5 Normal External Rotation 5 Normal Internal Rotation 5 Normal PT-OP-Q Treatments Start: 02/02/19 08:51 Freq: Status: Active Protocol: Document 02/21/19 08:15 AMB (Rec: 02/21/19 16:22 AMB [email or web address]) Cardio Equipment Upper Body Ergometer (UBE) Duration (Minutes) 5 RPM 60 Other fwd/backward Therapeutic Exercises Supine Exercises 5 Supine Exercise Name scap punch Reps/Minutes 2x10 Comments 2# 4 Supine Exercise Name alternating isometrics Comments arm at 90 degrees Standing Exercises 2 Standing Exercise Name t band ER/IR Resistance #2 Reps/Minutes 2x12 ea 1 Standing Exercise Name rows Resistance #2 t band Reps/Minutes 2x10 Manual Therapy Treatment Soft Tissue Mobilization 1 Body Location R GH Mobilization Type Cross-Friction,Strumming Intensity/Depth Moderate Body Position Hooklying Taping 1 Body Location R GH Type of Tape Kinesio Tape Comments 1 Y for superior support, I for scapular retraction PT-OP-R Modalities Start: 02/02/19 08:51 Freq: Status: Active Protocol: Document 02/10/19 10:30 AMB (Rec: 02/10/19 11:31 AMB [email or web address]) Hot Pack/Cold Pack Treatment Cold Pack Location R GH Patient Position Hooklying Treatment Duration (minutes) 10 PT-OP-T Assessment and Plan Start: 02/02/19 08:51 Freq: Status: Active Protocol: Document 02/21/19 08:15 AMB (Rec: 02/21/19 08:47 AMB [id number]) Physical Therapy Assessment Assessment Summary Assessment Chrissy continues to have pain at greater than 120 degrees of flexion, but IR is improving so that she can now pull her pants up without pain. Physical Therapy Plan Next Visit Focus/Plan Next Note Type Treatment Note Next Visit Plan Progress into AROM- resistance as tolerated
--- NOTE | 2019-02-23 10:52 | PT.OTN ---
Current Diagnoses Pain in right shoulder (02/23/19) Physical Therapy Treatment Note PT-OP-A Visit Information Start: 02/02/19 08:51 Freq: Status: Active Protocol: Document 02/23/19 10:00 AMB (Rec: 02/23/19 10:50 AMB [id number]) Out-Patient Physical Therapy Visit Information Visit Information Visit Type Treatment Note Visit Start Time 10:00 Visit Stop Time 10:45 Total Visit Minutes 45 Visit Number 6 PT-OP-B Current Condition Start: 02/02/19 08:51 Freq: Status: Active Protocol: Document 02/02/19 09:00 AMB (Rec: 02/06/19 10:47 AMB [email or web address]) Current Condition History of Current Condition Onset Date a few months ago Current Complaints R shoulder pain History of Current Condition Chrissy was moving a laundry cart at work and the wheel got caught and her right shoulder was adducted and she felt suddent onset pain. She thought it would go away with time but has been getting worse. 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 She has been noticing clicking in the shoulder that has just started. The pain is worse with overhead movements and is located in the posterior aspect of the glenohumeral joint. She does have a previous back surgery history and has noticed a return of back pain in the last month first thing in the morning and when she is done with work. She has also noticed a pulling in her left foot for the past 3-4 months. Treatment Goals Patient/Caregiver Goals Reduce shoulder pain so she can work normally Prior Functional Status Baseline Function- ADL's Independent Baseline Function- Mobility Independent Current Functional Impairments (Reported) Functional Limitations- Work/School limited ability to push/pull, reach overhead, lift overhead Personal Factors Other Personal Factors That May Effect prior L5S1 discectomy Therapy/Recovery PT-OP-C Subjective Start: 02/02/19 08:51 Freq: Status: Active Protocol: Document 02/23/19 10:00 AMB (Rec: 02/23/19 10:52 AMB [id number]) OP-PT Subjective Patient Comments Patient Comments Chrissy reports she had a cortisone injection on Thursday. She was painful yesterday but overall feeling better today. PT-OP-J Posture/Palpation/Skin Start: 02/02/19 08:51 Freq: Status: Active Protocol: Document 02/02/19 09:00 AMB (Rec: 02/02/19 10:31 AMB [email or web address]) Posture Evaluation Comments Posture Comments mild forward shoulder posture in sitting PT-OP-K Range of Motion Start: 02/02/19 08:51 Freq: Status: Active Protocol: Document 02/02/19 09:00 AMB (Rec: 02/02/19 10:31 AMB [email or web address]) Shoulder Goniometric Range of Motion Shoulder Left Active Shoulder ROM WFL Yes Testing Position Sitting Internal Rotation Behind Back (text) T6 Right Active Testing Position Sitting Flexion 160 Abduction 110 External Rotation at 0 degrees Abduction 70 Internal Rotation Behind Back (text) gluteal PT-OP-L Special Tests Start: 02/02/19 08:51 Freq: Status: Active Protocol: Document 02/02/19 09:00 AMB (Rec: 02/02/19 10:31 AMB [email or web address]) Special Tests Shoulder Special Tests Acuna Yifan Impingement Test Results negative Neer Impingement Test Results positive Lift-Off Rotator Cuff Test Results positive PT-OP-M Strength Start: 02/02/19 08:51 Freq: Status: Active Protocol: Document 02/02/19 09:00 AMB (Rec: 02/06/19 10:47 AMB [email or web address]) Shoulder Strength Shoulder Manual Muscle Testing Right Flexion 4+ Good+ Extension 5 Normal Abduction (C5) 4 Good External Rotation 4+ Good+ Internal Rotation 4+ Good+ Comments abduction painful Left Flexion 5 Normal Extension 5 Normal Abduction (C5) 5 Normal External Rotation 5 Normal Internal Rotation 5 Normal PT-OP-Q Treatments Start: 02/02/19 08:51 Freq: Status: Active Protocol: Document 02/23/19 10:00 AMB (Rec: 02/23/19 10:50 AMB [id number]) Therapeutic Exercises Supine Exercises 3 Supine Exercise Name foam roll active pec stretch Reps/Minutes 30 Prone Exercises 1 Prone Exercise Name I, Y, T Resistance AROM Reps/Minutes 2x10 ea Sidelying Exercises 1 Sidelying Exercise Name shoulder abduction Resistance 2# Reps/Minutes 2x10 Comments partial ROM Standing Exercises 3 Standing Exercise Name wall pushups Reps/Minutes 10 2 Standing Exercise Name t band ER/IR Resistance #2 Reps/Minutes 2x12 ea 1 Standing Exercise Name rows Resistance #2 t band Reps/Minutes 2x10 Manual Therapy Treatment Soft Tissue Mobilization 1 Body Location R GH Mobilization Type Cross-Friction,Strumming Intensity/Depth Moderate Body Position Hooklying PT-OP-R Modalities Start: 02/02/19 08:51 Freq: Status: Active Protocol: Document 02/10/19 10:30 AMB (Rec: 02/10/19 11:31 AMB [email or web address]) Hot Pack/Cold Pack Treatment Cold Pack Location R GH Patient Position Hooklying Treatment Duration (minutes) 10 PT-OP-T Assessment and Plan Start: 02/02/19 08:51 Freq: Status: Active Protocol: Document 02/23/19 10:00 AMB (Rec: 02/23/19 10:50 AMB [id number]) Physical Therapy Assessment Assessment Summary Assessment Better flexion AROM today but painful with horizontal abduction and had to be careful with pec stretch. Physical Therapy Plan Next Visit Focus/Plan Next Note Type Treatment Note Next Visit Plan Progress into AROM- resistance as tolerated
--- NOTE | 2019-03-08 09:19 | PT.OTN ---
Current Diagnoses Pain in right shoulder (03/08/19) Physical Therapy Treatment Note PT-OP-A Visit Information Start: 02/02/19 08:51 Freq: Status: Active Protocol: Document 03/08/19 08:15 AMB (Rec: 03/08/19 08:30 AMB [id number]) Out-Patient Physical Therapy Visit Information Visit Information Visit Type Treatment Note Visit Start Time 08:15 Visit Stop Time 09:00 Total Visit Minutes 45 Visit Number 7 PT-OP-B Current Condition Start: 02/02/19 08:51 Freq: Status: Active Protocol: Document 02/02/19 09:00 AMB (Rec: 02/06/19 10:47 AMB [email or web address]) Current Condition History of Current Condition Onset Date a few months ago Current Complaints R shoulder pain History of Current Condition Chrissy was moving a laundry cart at work and the wheel got caught and her right shoulder was adducted and she felt suddent onset pain. She thought it would go away with time but has been getting worse. 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 She has been noticing clicking in the shoulder that has just started. The pain is worse with overhead movements and is located in the posterior aspect of the glenohumeral joint. She does have a previous back surgery history and has noticed a return of back pain in the last month first thing in the morning and when she is done with work. She has also noticed a pulling in her left foot for the past 3-4 months. Treatment Goals Patient/Caregiver Goals Reduce shoulder pain so she can work normally Prior Functional Status Baseline Function- ADL's Independent Baseline Function- Mobility Independent Current Functional Impairments (Reported) Functional Limitations- Work/School limited ability to push/pull, reach overhead, lift overhead Personal Factors Other Personal Factors That May Effect prior L5S1 discectomy Therapy/Recovery PT-OP-C Subjective Start: 02/02/19 08:51 Freq: Status: Active Protocol: Document 03/08/19 08:15 AMB (Rec: 03/08/19 08:30 AMB [id number]) OP-PT Subjective Patient Comments Patient Comments Pt has been noticing increased pain with resistive ER. Keeping lifting to right in front of her body. PT-OP-J Posture/Palpation/Skin Start: 02/02/19 08:51 Freq: Status: Active Protocol: Document 02/02/19 09:00 AMB (Rec: 02/02/19 10:31 AMB [email or web address]) Posture Evaluation Comments Posture Comments mild forward shoulder posture in sitting PT-OP-K Range of Motion Start: 02/02/19 08:51 Freq: Status: Active Protocol: Document 02/02/19 09:00 AMB (Rec: 02/02/19 10:31 AMB [email or web address]) Shoulder Goniometric Range of Motion Shoulder Left Active Shoulder ROM WFL Yes Testing Position Sitting Internal Rotation Behind Back (text) T6 Right Active Testing Position Sitting Flexion 160 Abduction 110 External Rotation at 0 degrees Abduction 70 Internal Rotation Behind Back (text) gluteal PT-OP-L Special Tests Start: 02/02/19 08:51 Freq: Status: Active Protocol: Document 02/02/19 09:00 AMB (Rec: 02/02/19 10:31 AMB [email or web address]) Special Tests Shoulder Special Tests Acuna Yifan Impingement Test Results negative Neer Impingement Test Results positive Lift-Off Rotator Cuff Test Results positive PT-OP-M Strength Start: 02/02/19 08:51 Freq: Status: Active Protocol: Document 02/02/19 09:00 AMB (Rec: 02/06/19 10:47 AMB [email or web address]) Shoulder Strength Shoulder Manual Muscle Testing Right Flexion 4+ Good+ Extension 5 Normal Abduction (C5) 4 Good External Rotation 4+ Good+ Internal Rotation 4+ Good+ Comments abduction painful Left Flexion 5 Normal Extension 5 Normal Abduction (C5) 5 Normal External Rotation 5 Normal Internal Rotation 5 Normal PT-OP-Q Treatments Start: 02/02/19 08:51 Freq: Status: Active Protocol: Document 03/08/19 08:15 AMB (Rec: 03/08/19 09:03 AMB [email or web address]) Cardio Equipment Upper Body Ergometer (UBE) Duration (Minutes) 8 RPM 60 Therapeutic Exercises Standing Exercises 2 Standing Exercise Name t band ER/IR Resistance #2 Reps/Minutes 2x12 ea Comments isometric ER to neutral 1 Standing Exercise Name rows Resistance #2 t band Reps/Minutes 2x10 Manual Therapy Treatment Soft Tissue Mobilization 1 Body Location R GH Mobilization Type Cross-Friction,Strumming Intensity/Depth Moderate Body Position Hooklying Taping 1 Body Location R GH Type of Tape Kinesio Tape Comments 1 Y for superior support, I for scapular retraction PT-OP-R Modalities Start: 02/02/19 08:51 Freq: Status: Active Protocol: Document 02/10/19 10:30 AMB (Rec: 02/10/19 11:31 AMB [email or web address]) Hot Pack/Cold Pack Treatment Cold Pack Location R GH Patient Position Hooklying Treatment Duration (minutes) 10 PT-OP-T Assessment and Plan Start: 02/02/19 08:51 Freq: Status: Active Protocol: Document 03/08/19 08:15 AMB (Rec: 03/08/19 09:03 AMB [email or web address]) Physical Therapy Assessment Assessment Summary Assessment Pt is having more anterior shoulder pain today, so modified ther ex and HEP and worked more anteriorly. Physical Therapy Plan Next Visit Focus/Plan Next Note Type Treatment Note Next Visit Plan Progress into AROM- resistance as tolerated
--- NOTE | 2019-03-11 11:59 | PT.OTN ---
Current Diagnoses Pain in right shoulder (03/11/19) Physical Therapy Treatment Note PT-OP-A Visit Information Start: 02/02/19 08:51 Freq: Status: Active Protocol: Document 03/11/19 09:00 AMB (Rec: 03/11/19 09:11 AMB [id number]) Out-Patient Physical Therapy Visit Information Visit Information Visit Type Treatment Note Visit Start Time 08:15 Visit Stop Time 09:00 Total Visit Minutes 45 Visit Number 8 PT-OP-B Current Condition Start: 02/02/19 08:51 Freq: Status: Active Protocol: Document 02/02/19 09:00 AMB (Rec: 02/06/19 10:47 AMB [email or web address]) Current Condition History of Current Condition Onset Date a few months ago Current Complaints R shoulder pain History of Current Condition Chrissy was moving a laundry cart at work and the wheel got caught and her right shoulder was adducted and she felt suddent onset pain. She thought it would go away with time but has been getting worse. 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 She has been noticing clicking in the shoulder that has just started. The pain is worse with overhead movements and is located in the posterior aspect of the glenohumeral joint. She does have a previous back surgery history and has noticed a return of back pain in the last month first thing in the morning and when she is done with work. She has also noticed a pulling in her left foot for the past 3-4 months. Treatment Goals Patient/Caregiver Goals Reduce shoulder pain so she can work normally Prior Functional Status Baseline Function- ADL's Independent Baseline Function- Mobility Independent Current Functional Impairments (Reported) Functional Limitations- Work/School limited ability to push/pull, reach overhead, lift overhead Personal Factors Other Personal Factors That May Effect prior L5S1 discectomy Therapy/Recovery PT-OP-C Subjective Start: 02/02/19 08:51 Freq: Status: Active Protocol: Document 03/11/19 09:00 AMB (Rec: 03/11/19 09:11 AMB [id number]) OP-PT Subjective Patient Comments Patient Comments Pt tried to dust and even that increased her pain. PT-OP-J Posture/Palpation/Skin Start: 02/02/19 08:51 Freq: Status: Active Protocol: Document 02/02/19 09:00 AMB (Rec: 02/02/19 10:31 AMB [email or web address]) Posture Evaluation Comments Posture Comments mild forward shoulder posture in sitting PT-OP-K Range of Motion Start: 02/02/19 08:51 Freq: Status: Active Protocol: Document 02/02/19 09:00 AMB (Rec: 02/02/19 10:31 AMB [email or web address]) Shoulder Goniometric Range of Motion Shoulder Left Active Shoulder ROM WFL Yes Testing Position Sitting Internal Rotation Behind Back (text) T6 Right Active Testing Position Sitting Flexion 160 Abduction 110 External Rotation at 0 degrees Abduction 70 Internal Rotation Behind Back (text) gluteal PT-OP-L Special Tests Start: 02/02/19 08:51 Freq: Status: Active Protocol: Document 02/02/19 09:00 AMB (Rec: 02/02/19 10:31 AMB [email or web address]) Special Tests Shoulder Special Tests Acuna Yifan Impingement Test Results negative Neer Impingement Test Results positive Lift-Off Rotator Cuff Test Results positive PT-OP-M Strength Start: 02/02/19 08:51 Freq: Status: Active Protocol: Document 02/02/19 09:00 AMB (Rec: 02/06/19 10:47 AMB [email or web address]) Shoulder Strength Shoulder Manual Muscle Testing Right Flexion 4+ Good+ Extension 5 Normal Abduction (C5) 4 Good External Rotation 4+ Good+ Internal Rotation 4+ Good+ Comments abduction painful Left Flexion 5 Normal Extension 5 Normal Abduction (C5) 5 Normal External Rotation 5 Normal Internal Rotation 5 Normal PT-OP-Q Treatments Start: 02/02/19 08:51 Freq: Status: Active Protocol: Document 03/11/19 09:00 AMB (Rec: 03/11/19 09:31 AMB [id number]) Cardio Equipment Upper Body Ergometer (UBE) Duration (Minutes) 7 RPM 60 Therapeutic Exercises Prone Exercises 1 Prone Exercise Name I, Y, T Resistance AROM Reps/Minutes 2x10 ea Sitting Exercises 1 Sitting Exercise Name bicep curl Resistance 5# Reps/Minutes 2x[address] Standing Exercises 3 Standing Exercise Name wall pushups Reps/Minutes 10 2 Standing Exercise Name t band ER/IR Resistance #2 Reps/Minutes 2x12 ea Comments isometric ER to neutral 1 Standing Exercise Name rows Resistance #2 t band Reps/Minutes 2x10 Manual Therapy Treatment Soft Tissue Mobilization 1 Body Location R GH Mobilization Type Cross-Friction,Strumming Intensity/Depth Moderate Body Position Hooklying PT-OP-R Modalities Start: 02/02/19 08:51 Freq: Status: Active Protocol: Document 02/10/19 10:30 AMB (Rec: 02/10/19 11:31 AMB [email or web address]) Hot Pack/Cold Pack Treatment Cold Pack Location R GH Patient Position Hooklying Treatment Duration (minutes) 10 PT-OP-T Assessment and Plan Start: 02/02/19 08:51 Freq: Status: Active Protocol: Document 03/11/19 08:15 AMB (Rec: 03/11/19 11:58 AMB [email or web address]) Physical Therapy Assessment Goals Three Impairment pain [employer]er [employer] Goal (LTG) Chrissy will be able to work 4 hours with 3/10 pain or less. LTG Duration 8 weeks Two Impairment strength Short Term Goal (STG) Chrissy will increase her strength to 5/5 in all planes. STG Duration 4 weeks Jail Goal (LTG) Chrissy will lift 20 pounds to shoulder height without an increase in baseline pain. LTG Duration 8 weeks One Impairment ROM Short Term Goal (STG) Chrissy will increase abduction AROM to 170 degrees without pain. Assessment Summary Assessment Pt is continuing to have anterior shoulder pain. Pain with palpation over proximal biceps tendon today. Physical Therapy Plan Next Visit Focus/Plan Next Note Type Treatment Note Next Visit Plan Progress into AROM- resistance as tolerated
--- NOTE | 2019-03-16 08:20 | PT.OTN ---
Current Diagnoses Pain in right shoulder (03/16/19) Physical Therapy Treatment Note PT-OP-A Visit Information Start: 02/02/19 08:51 Freq: Status: Active Protocol: Document 03/16/19 07:30 AMB (Rec: 03/16/19 07:40 AMB [id number]) Out-Patient Physical Therapy Visit Information Visit Information Visit Type Treatment Note Visit Start Time 07:30 Visit Stop Time 08:15 Total Visit Minutes 45 Visit Number 9 PT-OP-B Current Condition Start: 02/02/19 08:51 Freq: Status: Active Protocol: Document 02/02/19 09:00 AMB (Rec: 02/06/19 10:47 AMB [email or web address]) Current Condition History of Current Condition Onset Date a few months ago Current Complaints R shoulder pain History of Current Condition Chrissy was moving a laundry cart at work and the wheel got caught and her right shoulder was adducted and she felt suddent onset pain. She thought it would go away with time but has been getting worse. 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 She has been noticing clicking in the shoulder that has just started. The pain is worse with overhead movements and is located in the posterior aspect of the glenohumeral joint. She does have a previous back surgery history and has noticed a return of back pain in the last month first thing in the morning and when she is done with work. She has also noticed a pulling in her left foot for the past 3-4 months. Treatment Goals Patient/Caregiver Goals Reduce shoulder pain so she can work normally Prior Functional Status Baseline Function- ADL's Independent Baseline Function- Mobility Independent Current Functional Impairments (Reported) Functional Limitations- Work/School limited ability to push/pull, reach overhead, lift overhead Personal Factors Other Personal Factors That May Effect prior L5S1 discectomy Therapy/Recovery PT-OP-C Subjective Start: 02/02/19 08:51 Freq: Status: Active Protocol: Document 03/16/19 07:30 AMB (Rec: 03/16/19 07:40 AMB [id number]) OP-PT Subjective Patient Comments Patient Comments Pt is feeling better with unhooking her bra (internal rotation), but has not been cleaning anything so that is helping. Pain continues to be in the front of the shoulder. PT-OP-J Posture/Palpation/Skin Start: 02/02/19 08:51 Freq: Status: Active Protocol: Document 02/02/19 09:00 AMB (Rec: 02/02/19 10:31 AMB [email or web address]) Posture Evaluation Comments Posture Comments mild forward shoulder posture in sitting PT-OP-K Range of Motion Start: 02/02/19 08:51 Freq: Status: Active Protocol: Document 02/02/19 09:00 AMB (Rec: 02/02/19 10:31 AMB [email or web address]) Shoulder Goniometric Range of Motion Shoulder Left Active Shoulder ROM WFL Yes Testing Position Sitting Internal Rotation Behind Back (text) T6 Right Active Testing Position Sitting Flexion 160 Abduction 110 External Rotation at 0 degrees Abduction 70 Internal Rotation Behind Back (text) gluteal PT-OP-L Special Tests Start: 02/02/19 08:51 Freq: Status: Active Protocol: Document 02/02/19 09:00 AMB (Rec: 02/02/19 10:31 AMB [email or web address]) Special Tests Shoulder Special Tests Acuna Yifan Impingement Test Results negative Neer Impingement Test Results positive Lift-Off Rotator Cuff Test Results positive PT-OP-M Strength Start: 02/02/19 08:51 Freq: Status: Active Protocol: Document 02/02/19 09:00 AMB (Rec: 02/06/19 10:47 AMB [email or web address]) Shoulder Strength Shoulder Manual Muscle Testing Right Flexion 4+ Good+ Extension 5 Normal Abduction (C5) 4 Good External Rotation 4+ Good+ Internal Rotation 4+ Good+ Comments abduction painful Left Flexion 5 Normal Extension 5 Normal Abduction (C5) 5 Normal External Rotation 5 Normal Internal Rotation 5 Normal PT-OP-Q Treatments Start: 02/02/19 08:51 Freq: Status: Active Protocol: Document 03/16/19 07:30 AMB (Rec: 03/16/19 08:16 AMB [email or web address]) Cardio Equipment Upper Body Ergometer (UBE) Duration (Minutes) 7 RPM 60 Therapeutic Exercises Standing Exercises 4 Standing Exercise Name flexion to 90 degrees Resistance #2 t band Reps/Minutes 2x10 2 Standing Exercise Name t band ER/IR Resistance #2 Reps/Minutes 2x12 ea Comments isometric ER to neutral 1 Standing Exercise Name rows Resistance #2 t band Reps/Minutes 2x10 Manual Therapy Treatment Soft Tissue Mobilization 1 Body Location R GH Mobilization Type Cross-Friction,Strumming Intensity/Depth Moderate Body Position Hooklying Taping 1 Body Location R GH Type of Tape Kinesio Tape Comments 1 Y for superior support, I for scapular retraction PT-OP-R Modalities Start: 02/02/19 08:51 Freq: Status: Active Protocol: Document 02/10/19 10:30 AMB (Rec: 02/10/19 11:31 AMB [email or web address]) Hot Pack/Cold Pack Treatment Cold Pack Location R GH Patient Position Hooklying Treatment Duration (minutes) 10 PT-OP-T Assessment and Plan Start: 02/02/19 08:51 Freq: Status: Active Protocol: Document 03/16/19 07:30 AMB (Rec: 03/16/19 08:20 AMB [id number]) Physical Therapy Assessment Assessment Summary Assessment Pt is feeling like she is definitely better, the shoulder is not hurting as much, however she has been doing her exercises but not pushing other activities and is worried that if she went back to work now the shoulder would just go back to hurting. Physical Therapy Plan Next Visit Focus/Plan Next Note Type Treatment Note Next Visit Plan Progress into AROM- resistance as tolerated
--- NOTE | 2019-03-18 13:57 | PT.OTN ---
Current Diagnoses Pain in right shoulder (03/18/19) Physical Therapy Treatment Note PT-OP-A Visit Information Start: 02/02/19 08:51 Freq: Status: Active Protocol: Document 03/18/19 13:00 AMB (Rec: 03/18/19 13:07 AMB [id number]) Out-Patient Physical Therapy Visit Information Visit Information Visit Type Treatment Note Visit Start Time 07:30 Visit Stop Time 08:15 Total Visit Minutes 45 Visit Number 10 PT-OP-B Current Condition Start: 02/02/19 08:51 Freq: Status: Active Protocol: Document 02/02/19 09:00 AMB (Rec: 02/06/19 10:47 AMB [email or web address]) Current Condition History of Current Condition Onset Date a few months ago Current Complaints R shoulder pain History of Current Condition Chrissy was moving a laundry cart at work and the wheel got caught and her right shoulder was adducted and she felt suddent onset pain. She thought it would go away with time but has been getting worse. 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 She has been noticing clicking in the shoulder that has just started. The pain is worse with overhead movements and is located in the posterior aspect of the glenohumeral joint. She does have a previous back surgery history and has noticed a return of back pain in the last month first thing in the morning and when she is done with work. She has also noticed a pulling in her left foot for the past 3-4 months. Treatment Goals Patient/Caregiver Goals Reduce shoulder pain so she can work normally Prior Functional Status Baseline Function- ADL's Independent Baseline Function- Mobility Independent Current Functional Impairments (Reported) Functional Limitations- Work/School limited ability to push/pull, reach overhead, lift overhead Personal Factors Other Personal Factors That May Effect prior L5S1 discectomy Therapy/Recovery PT-OP-C Subjective Start: 02/02/19 08:51 Freq: Status: Active Protocol: Document 03/18/19 13:00 AMB (Rec: 03/18/19 13:07 AMB [id number]) OP-PT Subjective Patient Comments Patient Comments Pt feels that her posterior shoulder pain has returned, anterior shoulder pain is better, but posterior pain ( original complaint) is present with daily activities like opening a door, pt questioning if cortisone was helping more than she thought. PT-OP-J Posture/Palpation/Skin Start: 02/02/19 08:51 Freq: Status: Active Protocol: Document 02/02/19 09:00 AMB (Rec: 02/02/19 10:31 AMB [email or web address]) Posture Evaluation Comments Posture Comments mild forward shoulder posture in sitting PT-OP-K Range of Motion Start: 02/02/19 08:51 Freq: Status: Active Protocol: Document 02/02/19 09:00 AMB (Rec: 02/02/19 10:31 AMB [email or web address]) Shoulder Goniometric Range of Motion Shoulder Left Active Shoulder ROM WFL Yes Testing Position Sitting Internal Rotation Behind Back (text) T6 Right Active Testing Position Sitting Flexion 160 Abduction 110 External Rotation at 0 degrees Abduction 70 Internal Rotation Behind Back (text) gluteal PT-OP-L Special Tests Start: 02/02/19 08:51 Freq: Status: Active Protocol: Document 02/02/19 09:00 AMB (Rec: 02/02/19 10:31 AMB [email or web address]) Special Tests Shoulder Special Tests Acuna Yifan Impingement Test Results negative Neer Impingement Test Results positive Lift-Off Rotator Cuff Test Results positive PT-OP-M Strength Start: 02/02/19 08:51 Freq: Status: Active Protocol: Document 02/02/19 09:00 AMB (Rec: 02/06/19 10:47 AMB [email or web address]) Shoulder Strength Shoulder Manual Muscle Testing Right Flexion 4+ Good+ Extension 5 Normal Abduction (C5) 4 Good External Rotation 4+ Good+ Internal Rotation 4+ Good+ Comments abduction painful Left Flexion 5 Normal Extension 5 Normal Abduction (C5) 5 Normal External Rotation 5 Normal Internal Rotation 5 Normal PT-OP-Q Treatments Start: 02/02/19 08:51 Freq: Status: Active Protocol: Document 03/18/19 13:50 AMB (Rec: 03/18/19 13:57 AMB [email or web address]) Therapeutic Exercises Prone Exercises 1 Prone Exercise Name I, Y, T Resistance 2# Reps/Minutes 2x10 ea Standing Exercises 6 Standing Exercise Name shoulder abduction Resistance #2 t band Reps/Minutes 2x10 4 Standing Exercise Name flexion to 90 degrees Resistance #2 t band Reps/Minutes 2x10 2 Standing Exercise Name t band ER/IR Resistance #2 Reps/Minutes 2x12 ea Comments isometric ER to neutral 1 Standing Exercise Name rows Resistance #2 t band Reps/Minutes 2x10 Manual Therapy Treatment Soft Tissue Mobilization 1 Body Location R GH Mobilization Type Cross-Friction,Strumming Intensity/Depth Moderate Body Position Hooklying PT-OP-R Modalities Start: 02/02/19 08:51 Freq: Status: Active Protocol: Document 02/10/19 10:30 AMB (Rec: 02/10/19 11:31 AMB [email or web address]) Hot Pack/Cold Pack Treatment Cold Pack Location R GH Patient Position Hooklying Treatment Duration (minutes) 10 PT-OP-T Assessment and Plan Start: 02/02/19 08:51 Freq: Status: Active Protocol: Document 03/18/19 13:50 AMB (Rec: 03/18/19 13:57 AMB [email or web address]) Physical Therapy Assessment Assessment Summary Assessment Chrissy is continuing to have posterior shoulder pain. Was able to progress resistance of exercises today though. Physical Therapy Plan Next Visit Focus/Plan Next Note Type Treatment Note Next Visit Plan Progress into AROM- resistance as tolerated
--- NOTE | 2019-03-22 15:39 | PT.OTN ---
Current Diagnoses Pain in right shoulder (03/22/19) Physical Therapy Treatment Note PT-OP-A Visit Information Start: 02/02/19 08:51 Freq: Status: Active Protocol: Document 03/22/19 13:00 AMB (Rec: 03/22/19 13:58 AMB [id number]) Out-Patient Physical Therapy Visit Information Visit Information Visit Type Treatment Note Visit Start Time 13:00 Visit Stop Time 13:45 Total Visit Minutes 45 Visit Number 11 PT-OP-B Current Condition Start: 02/02/19 08:51 Freq: Status: Active Protocol: Document 02/02/19 09:00 AMB (Rec: 02/06/19 10:47 AMB [email or web address]) Current Condition History of Current Condition Onset Date a few months ago Current Complaints R shoulder pain History of Current Condition Chrissy was moving a laundry cart at work and the wheel got caught and her right shoulder was adducted and she felt suddent onset pain. She thought it would go away with time but has been getting worse. 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 She has been noticing clicking in the shoulder that has just started. The pain is worse with overhead movements and is located in the posterior aspect of the glenohumeral joint. She does have a previous back surgery history and has noticed a return of back pain in the last month first thing in the morning and when she is done with work. She has also noticed a pulling in her left foot for the past 3-4 months. Treatment Goals Patient/Caregiver Goals Reduce shoulder pain so she can work normally Prior Functional Status Baseline Function- ADL's Independent Baseline Function- Mobility Independent Current Functional Impairments (Reported) Functional Limitations- Work/School limited ability to push/pull, reach overhead, lift overhead Personal Factors Other Personal Factors That May Effect prior L5S1 discectomy Therapy/Recovery PT-OP-C Subjective Start: 02/02/19 08:51 Freq: Status: Active Protocol: Document 03/22/19 13:00 AMB (Rec: 03/22/19 13:58 AMB [id number]) OP-PT Subjective Patient Comments Patient Comments Pt reports anterior and posterior pain that comes on after movement. PT-OP-J Posture/Palpation/Skin Start: 02/02/19 08:51 Freq: Status: Active Protocol: Document 02/02/19 09:00 AMB (Rec: 02/02/19 10:31 AMB [email or web address]) Posture Evaluation Comments Posture Comments mild forward shoulder posture in sitting PT-OP-K Range of Motion Start: 02/02/19 08:51 Freq: Status: Active Protocol: Document 02/02/19 09:00 AMB (Rec: 02/02/19 10:31 AMB [email or web address]) Shoulder Goniometric Range of Motion Shoulder Left Active Shoulder ROM WFL Yes Testing Position Sitting Internal Rotation Behind Back (text) T6 Right Active Testing Position Sitting Flexion 160 Abduction 110 External Rotation at 0 degrees Abduction 70 Internal Rotation Behind Back (text) gluteal PT-OP-L Special Tests Start: 02/02/19 08:51 Freq: Status: Active Protocol: Document 02/02/19 09:00 AMB (Rec: 02/02/19 10:31 AMB [email or web address]) Special Tests Shoulder Special Tests Acuna Yifan Impingement Test Results negative Neer Impingement Test Results positive Lift-Off Rotator Cuff Test Results positive PT-OP-M Strength Start: 02/02/19 08:51 Freq: Status: Active Protocol: Document 02/02/19 09:00 AMB (Rec: 02/06/19 10:47 AMB [email or web address]) Shoulder Strength Shoulder Manual Muscle Testing Right Flexion 4+ Good+ Extension 5 Normal Abduction (C5) 4 Good External Rotation 4+ Good+ Internal Rotation 4+ Good+ Comments abduction painful Left Flexion 5 Normal Extension 5 Normal Abduction (C5) 5 Normal External Rotation 5 Normal Internal Rotation 5 Normal PT-OP-Q Treatments Start: 02/02/19 08:51 Freq: Status: Active Protocol: Document 03/22/19 13:00 AMB (Rec: 03/22/19 15:39 AMB [email or web address]) Cardio Equipment Upper Body Ergometer (UBE) Duration (Minutes) 7 RPM 60 Therapeutic Exercises Sitting Exercises 1 Sitting Exercise Name overhead press Reps/Minutes 2# Comments modified range Standing Exercises 5 Standing Exercise Name shoulder extension Resistance #3 t band Reps/Minutes 2x10 6 Standing Exercise Name shoulder abduction Resistance #3 t band Reps/Minutes 2x10 4 Standing Exercise Name flexion to 90 degrees Resistance #2 t band Reps/Minutes 2x10 2 Standing Exercise Name t band ER/IR Resistance #2 Reps/Minutes 2x12 ea Comments isometric ER to 30 degrees 1 Standing Exercise Name rows Resistance #3 t band Reps/Minutes 2x10 Manual Therapy Treatment Soft Tissue Mobilization 1 Body Location R GH Mobilization Type Cross-Friction,Strumming Intensity/Depth Moderate Body Position Hooklying Joint Mobilizations 1 Joint GH Direction AP and inferior glide Grade III Body Position Hooklying Reps/Duration 5 min Taping 1 Body Location R GH Type of Tape Kinesio Tape Comments 1 Y for superior support, I for scapular retraction PT-OP-R Modalities Start: 02/02/19 08:51 Freq: Status: Active Protocol: Document 02/10/19 10:30 AMB (Rec: 02/10/19 11:31 AMB [email or web address]) Hot Pack/Cold Pack Treatment Cold Pack Location R GH Patient Position Hooklying Treatment Duration (minutes) 10 PT-OP-T Assessment and Plan Start: 02/02/19 08:51 Freq: Status: Active Protocol: Document 03/22/19 13:00 AMB (Rec: 03/22/19 15:39 AMB [email or web address]) Physical Therapy Assessment Assessment Summary Assessment Chrissy is continuing to have pain in her anterior and posterior shoulder, but tolerated exercises well without an increase in pain. Physical Therapy Plan Next Visit Focus/Plan Next Note Type Treatment Note Next Visit Plan Progress into AROM- resistance as tolerated
--- NOTE | 2019-03-25 08:10 | PT.OTN ---
Current Diagnoses Pain in right shoulder (03/24/19) Physical Therapy Treatment Note PT-OP-A Visit Information Start: 02/02/19 08:51 Freq: Status: Active Protocol: Document 03/24/19 13:00 AMB (Rec: 03/24/19 13:55 AMB [id number]) Out-Patient Physical Therapy Visit Information Visit Information Visit Type Treatment Note Visit Start Time 13:00 Visit Stop Time 13:45 Total Visit Minutes 45 Visit Number 12 PT-OP-B Current Condition Start: 02/02/19 08:51 Freq: Status: Active Protocol: Document 02/02/19 09:00 AMB (Rec: 02/06/19 10:47 AMB [email or web address]) Current Condition History of Current Condition Onset Date a few months ago Current Complaints R shoulder pain History of Current Condition Chrissy was moving a laundry cart at work and the wheel got caught and her right shoulder was adducted and she felt suddent onset pain. She thought it would go away with time but has been getting worse. 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 She has been noticing clicking in the shoulder that has just started. The pain is worse with overhead movements and is located in the posterior aspect of the glenohumeral joint. She does have a previous back surgery history and has noticed a return of back pain in the last month first thing in the morning and when she is done with work. She has also noticed a pulling in her left foot for the past 3-4 months. Treatment Goals Patient/Caregiver Goals Reduce shoulder pain so she can work normally Prior Functional Status Baseline Function- ADL's Independent Baseline Function- Mobility Independent Current Functional Impairments (Reported) Functional Limitations- Work/School limited ability to push/pull, reach overhead, lift overhead Personal Factors Other Personal Factors That May Effect prior L5S1 discectomy Therapy/Recovery PT-OP-C Subjective Start: 02/02/19 08:51 Freq: Status: Active Protocol: Document 03/24/19 13:00 AMB (Rec: 03/24/19 13:55 AMB [id number]) OP-PT Subjective Patient Comments Patient Comments Pt reports she is having increased pain after her doctors appointment. PT-OP-J Posture/Palpation/Skin Start: 02/02/19 08:51 Freq: Status: Active Protocol: Document 02/02/19 09:00 AMB (Rec: 02/02/19 10:31 AMB [email or web address]) Posture Evaluation Comments Posture Comments mild forward shoulder posture in sitting PT-OP-K Range of Motion Start: 02/02/19 08:51 Freq: Status: Active Protocol: Document 02/02/19 09:00 AMB (Rec: 02/02/19 10:31 AMB [email or web address]) Shoulder Goniometric Range of Motion Shoulder Left Active Shoulder ROM WFL Yes Testing Position Sitting Internal Rotation Behind Back (text) T6 Right Active Testing Position Sitting Flexion 160 Abduction 110 External Rotation at 0 degrees Abduction 70 Internal Rotation Behind Back (text) gluteal PT-OP-L Special Tests Start: 02/02/19 08:51 Freq: Status: Active Protocol: Document 02/02/19 09:00 AMB (Rec: 02/02/19 10:31 AMB [email or web address]) Special Tests Shoulder Special Tests Acuna Yifan Impingement Test Results negative Neer Impingement Test Results positive Lift-Off Rotator Cuff Test Results positive PT-OP-M Strength Start: 02/02/19 08:51 Freq: Status: Active Protocol: Document 02/02/19 09:00 AMB (Rec: 02/06/19 10:47 AMB [email or web address]) Shoulder Strength Shoulder Manual Muscle Testing Right Flexion 4+ Good+ Extension 5 Normal Abduction (C5) 4 Good External Rotation 4+ Good+ Internal Rotation 4+ Good+ Comments abduction painful Left Flexion 5 Normal Extension 5 Normal Abduction (C5) 5 Normal External Rotation 5 Normal Internal Rotation 5 Normal PT-OP-Q Treatments Start: 02/02/19 08:51 Freq: Status: Active Protocol: Document 03/24/19 13:00 AMB (Rec: 03/25/19 08:09 AMB [email or web address]) Therapeutic Exercises Standing Exercises 5 Standing Exercise Name shoulder extension Resistance #3 t band Reps/Minutes 2x10 6 Standing Exercise Name shoulder abduction Resistance #3 t band Reps/Minutes 2x10 4 Standing Exercise Name flexion to 90 degrees Resistance #2 t band Reps/Minutes 2x10 2 Standing Exercise Name t band ER/IR Resistance #2 Reps/Minutes 2x12 ea Comments isometric ER to neutral 1 Standing Exercise Name rows Resistance #3 t band Reps/Minutes 2x10 Manual Therapy Treatment Soft Tissue Mobilization 1 Body Location R GH Mobilization Type Cross-Friction,Strumming Intensity/Depth Moderate Body Position Hooklying Joint Mobilizations 1 Joint GH Direction AP and inferior glide Grade III Body Position Hooklying Reps/Duration 5 min Taping 1 Body Location R GH Type of Tape Kinesio Tape Comments 1 Y for superior support, I for scapular retraction PT-OP-R Modalities Start: 02/02/19 08:51 Freq: Status: Active Protocol: Document 02/10/19 10:30 AMB (Rec: 02/10/19 11:31 AMB [email or web address]) Hot Pack/Cold Pack Treatment Cold Pack Location R GH Patient Position Hooklying Treatment Duration (minutes) 10 PT-OP-T Assessment and Plan Start: 02/02/19 08:51 Freq: Status: Active Protocol: Document 03/24/19 13:00 AMB (Rec: 03/25/19 08:09 AMB [email or web address]) Physical Therapy Assessment Assessment Summary Assessment Chrissy with increased pain today, reduced after manual therapy. After treatment Chrissy could move through full range without pain, but resistance continues to increase her shoulder pain. Physical Therapy Plan Next Visit Focus/Plan Next Note Type Treatment Note Next Visit Plan Progress into AROM- resistance as tolerated
--- NOTE | 2019-03-28 16:00 | PT.OTN ---
Current Diagnoses Pain in right shoulder (03/28/19) Strain of unspecified muscle, fascia and tendon at shoulder and upper arm level, right arm, initial encounter (03/28/19) Physical Therapy Treatment Note PT-OP-A Visit Information Start: 02/02/19 08:51 Freq: Status: Active Protocol: Document 03/28/19 13:45 AMB (Rec: 03/28/19 13:55 AMB [id number]) Out-Patient Physical Therapy Visit Information Visit Information Visit Type Treatment Note Visit Start Time 13:00 Visit Stop Time 13:45 Total Visit Minutes 45 Visit Number 13 PT-OP-B Current Condition Start: 02/02/19 08:51 Freq: Status: Active Protocol: Document 02/02/19 09:00 AMB (Rec: 02/06/19 10:47 AMB [email or web address]) Current Condition History of Current Condition Onset Date a few months ago Current Complaints R shoulder pain History of Current Condition Chrissy was moving a laundry cart at work and the wheel got caught and her right shoulder was adducted and she felt suddent onset pain. She thought it would go away with time but has been getting worse. 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 She has been noticing clicking in the shoulder that has just started. The pain is worse with overhead movements and is located in the posterior aspect of the glenohumeral joint. She does have a previous back surgery history and has noticed a return of back pain in the last month first thing in the morning and when she is done with work. She has also noticed a pulling in her left foot for the past 3-4 months. Treatment Goals Patient/Caregiver Goals Reduce shoulder pain so she can work normally Prior Functional Status Baseline Function- ADL's Independent Baseline Function- Mobility Independent Current Functional Impairments (Reported) Functional Limitations- Work/School limited ability to push/pull, reach overhead, lift overhead Personal Factors Other Personal Factors That May Effect prior L5S1 discectomy Therapy/Recovery PT-OP-C Subjective Start: 02/02/19 08:51 Freq: Status: Active Protocol: Document 03/28/19 13:45 AMB (Rec: 03/28/19 13:55 AMB [id number]) OP-PT Subjective Patient Comments Patient Comments Pt is continuing to notice more pain since her cortisone shot feels like it is wearing off. PT-OP-J Posture/Palpation/Skin Start: 02/02/19 08:51 Freq: Status: Active Protocol: Document 02/02/19 09:00 AMB (Rec: 02/02/19 10:31 AMB [email or web address]) Posture Evaluation Comments Posture Comments mild forward shoulder posture in sitting PT-OP-K Range of Motion Start: 02/02/19 08:51 Freq: Status: Active Protocol: Document 02/02/19 09:00 AMB (Rec: 02/02/19 10:31 AMB [email or web address]) Shoulder Goniometric Range of Motion Shoulder Left Active Shoulder ROM WFL Yes Testing Position Sitting Internal Rotation Behind Back (text) T6 Right Active Testing Position Sitting Flexion 160 Abduction 110 External Rotation at 0 degrees Abduction 70 Internal Rotation Behind Back (text) gluteal PT-OP-L Special Tests Start: 02/02/19 08:51 Freq: Status: Active Protocol: Document 02/02/19 09:00 AMB (Rec: 02/02/19 10:31 AMB [email or web address]) Special Tests Shoulder Special Tests Acuna Yifan Impingement Test Results negative Neer Impingement Test Results positive Lift-Off Rotator Cuff Test Results positive PT-OP-M Strength Start: 02/02/19 08:51 Freq: Status: Active Protocol: Document 02/02/19 09:00 AMB (Rec: 02/06/19 10:47 AMB [email or web address]) Shoulder Strength Shoulder Manual Muscle Testing Right Flexion 4+ Good+ Extension 5 Normal Abduction (C5) 4 Good External Rotation 4+ Good+ Internal Rotation 4+ Good+ Comments abduction painful Left Flexion 5 Normal Extension 5 Normal Abduction (C5) 5 Normal External Rotation 5 Normal Internal Rotation 5 Normal PT-OP-Q Treatments Start: 02/02/19 08:51 Freq: Status: Active Protocol: Document 03/28/19 13:45 AMB (Rec: 03/30/19 08:54 AMB [email or web address]) Therapeutic Exercises Standing Exercises 5 Standing Exercise Name shoulder extension Resistance #3 t band Reps/Minutes 2x10 6 Standing Exercise Name shoulder abduction Resistance #3 t band Reps/Minutes 2x10 4 Standing Exercise Name flexion to 90 degrees Resistance #2 t band Reps/Minutes 2x10 2 Standing Exercise Name t band ER/IR Resistance #2 Reps/Minutes 2x12 ea Comments isometric ER to neutral 1 Standing Exercise Name rows Resistance #3 t band Reps/Minutes 2x10 Manual Therapy Treatment Soft Tissue Mobilization 1 Body Location R GH Mobilization Type Cross-Friction,Strumming Intensity/Depth Moderate Body Position Hooklying Joint Mobilizations 1 Joint GH Direction AP and inferior glide Grade III Body Position Hooklying Reps/Duration 5 min Taping 1 Body Location R GH Type of Tape Kinesio Tape Comments 1 Y for superior support, I for scapular retraction PT-OP-R Modalities Start: 02/02/19 08:51 Freq: Status: Active Protocol: Document 02/10/19 10:30 AMB (Rec: 02/10/19 11:31 AMB [email or web address]) Hot Pack/Cold Pack Treatment Cold Pack Location R GH Patient Position Hooklying Treatment Duration (minutes) 10 PT-OP-T Assessment and Plan Start: 02/02/19 08:51 Freq: Status: Active Protocol: Document 03/28/19 13:45 AMB (Rec: 03/30/19 08:54 AMB [email or web address]) Physical Therapy Assessment Assessment Summary Assessment Chrissy is continuing to have a pain flare. Her ROM is well preserved, but strength to move throughout her ROM is not , especially with abduction and ER.
--- NOTE | 2019-03-31 12:00 | PT.OTN ---
Current Diagnoses Pain in right shoulder (03/31/19) Strain of unspecified muscle, fascia and tendon at shoulder and upper arm level, right arm, initial encounter (03/31/19) Physical Therapy Treatment Note PT-OP-A Visit Information Start: 02/02/19 08:51 Freq: Status: Active Protocol: Document 03/31/19 07:30 AMB (Rec: 03/31/19 07:38 AMB [id number]) Out-Patient Physical Therapy Visit Information Visit Information Visit Type Treatment Note Visit Start Time 07:30 Visit Stop Time 08:15 Total Visit Minutes 45 Visit Number 14 PT-OP-B Current Condition Start: 02/02/19 08:51 Freq: Status: Active Protocol: Document 02/02/19 09:00 AMB (Rec: 02/06/19 10:47 AMB [email or web address]) Current Condition History of Current Condition Onset Date a few months ago Current Complaints R shoulder pain History of Current Condition Chrissy was moving a laundry cart at work and the wheel got caught and her right shoulder was adducted and she felt suddent onset pain. She thought it would go away with time but has been getting worse. 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 She has been noticing clicking in the shoulder that has just started. The pain is worse with overhead movements and is located in the posterior aspect of the glenohumeral joint. She does have a previous back surgery history and has noticed a return of back pain in the last month first thing in the morning and when she is done with work. She has also noticed a pulling in her left foot for the past 3-4 months. Treatment Goals Patient/Caregiver Goals Reduce shoulder pain so she can work normally Prior Functional Status Baseline Function- ADL's Independent Baseline Function- Mobility Independent Current Functional Impairments (Reported) Functional Limitations- Work/School limited ability to push/pull, reach overhead, lift overhead Personal Factors Other Personal Factors That May Effect prior L5S1 discectomy Therapy/Recovery PT-OP-C Subjective Start: 02/02/19 08:51 Freq: Status: Active Protocol: Document 03/31/19 07:30 AMB (Rec: 03/31/19 07:38 AMB [id number]) OP-PT Subjective Patient Comments Patient Comments Pt is noticing more soreness than pain today, deep in the R shoulder. She does notice some discomfort after doing her HEP for maybe 20 minutes. PT-OP-J Posture/Palpation/Skin Start: 02/02/19 08:51 Freq: Status: Active Protocol: Document 02/02/19 09:00 AMB (Rec: 02/02/19 10:31 AMB [email or web address]) Posture Evaluation Comments Posture Comments mild forward shoulder posture in sitting PT-OP-K Range of Motion Start: 02/02/19 08:51 Freq: Status: Active Protocol: Document 03/31/19 07:38 AMB (Rec: 03/31/19 07:46 AMB [id number]) Shoulder Goniometric Range of Motion Shoulder Right Active Flexion 160 Abduction 124 Internal Rotation Behind Back (text) T8 PT-OP-L Special Tests Start: 02/02/19 08:51 Freq: Status: Active Protocol: Document 02/02/19 09:00 AMB (Rec: 02/02/19 10:31 AMB [email or web address]) Special Tests Shoulder Special Tests Acuna Yifan Impingement Test Results negative Neer Impingement Test Results positive Lift-Off Rotator Cuff Test Results positive PT-OP-M Strength Start: 02/02/19 08:51 Freq: Status: Active Protocol: Document 03/31/19 07:38 AMB (Rec: 03/31/19 07:46 AMB [id number]) Shoulder Strength Shoulder Manual Muscle Testing Right Flexion 4+ Good+ Extension 4+ Good+ Abduction (C5) 4+ Good+ External Rotation 4+ Good+ Internal Rotation 5 Normal Left Flexion 5 Normal Extension 5 Normal Abduction (C5) 5 Normal External Rotation 5 Normal Internal Rotation 5 Normal PT-OP-Q Treatments Start: 02/02/19 08:51 Freq: Status: Active Protocol: Document 03/31/19 07:30 AMB (Rec: 03/31/19 08:18 AMB [id number]) Cardio Equipment Upper Body Ergometer (UBE) Duration (Minutes) 7 RPM 60 Other fwd/ backward Therapeutic Exercises Standing Exercises 7 Standing Exercise Name wall slide Reps/Minutes 30x4 Comments flexion/scaption 5 Standing Exercise Name shoulder extension Resistance #3 t band Reps/Minutes 2x10 6 Standing Exercise Name shoulder abduction Resistance #3 t band Reps/Minutes 2x10 1 Standing Exercise Name rows Resistance 10# Reps/Minutes 2x10 Manual Therapy Treatment Soft Tissue Mobilization 1 Body Location R GH Mobilization Type Cross-Friction,Strumming Intensity/Depth Moderate Body Position Hooklying Taping 1 Body Location R GH Type of Tape Kinesio Tape Comments 1 Y for superior support, I for scapular retraction PT-OP-R Modalities Start: 02/02/19 08:51 Freq: Status: Active Protocol: Document 02/10/19 10:30 AMB (Rec: 02/10/19 11:31 AMB [email or web address]) Hot Pack/Cold Pack Treatment Cold Pack Location R GH Patient Position Hooklying Treatment Duration (minutes) 10 PT-OP-T Assessment and Plan Start: 02/02/19 08:51 Freq: Status: Active Protocol: Document 03/31/19 07:30 AMB (Rec: 04/01/19 07:46 AMB [email or web address]) Physical Therapy Assessment Goals Three Impairment pain Alf Goal (LTG) Chrissy will be able to work 4 hours with 3/10 pain or less. LTG Duration 8 weeks Two Impairment strength Short Term Goal (STG) Chrissy will increase her strength to 5/5 in all planes. STG Duration 4 weeks Alf Goal (LTG) Chrissy will lift 20 pounds to shoulder height without an increase in baseline pain. LTG Duration 8 weeks One Impairment ROM Short Term Goal (STG) Chrissy will increase abduction AROM to 170 degrees without pain. Assessment Summary Assessment Chrissy's ROM has improved significantly with IR, but she remains limited in active abduction (passively her ROM is good). Her strength has improved with external rotation, but remains weak in abduction. 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 Physical Therapy Plan Frequency and Duration Frequency of Treatment 2x/Week Duration of Treatment 6 weeks Plan of Care Start Date 03/30/19 Plan of Care End Date 05/11/19 Therapeutic Interventions Therapeutic Interventions Aquatic Therapy,Home Exercise Program,Joint Mobilizations, Manual Therapy,Neuromuscular Re-education,Self-Care/Home Management,Therapeutic Activities,Therapeutic Exercises Modalities Cold Pack/Ice Massage,Electric Stimulation,Ultrasound Next Visit Focus/Plan Next Note Type Treatment Note Next Visit Plan Progress stretching, shoulder abduction strengthening, scapular stability
--- NOTE | 2019-04-01 07:49 | PT.OPPOC ---
Current Diagnoses Pain in right shoulder (03/31/19) Strain of unspecified muscle, fascia and tendon at shoulder and upper arm level, right arm, initial encounter (03/31/19) Visit Care Team Role Provider Type Kirk Holland MD Attending Provider Physician Primary Care Provider Specialty: Family Practice Address: [address] [place] [address], [facility] [place], [address] Email: [email or web address] Plan Of Care PT-OP-T Assessment and Plan Start: 02/02/19 08:51 Freq: Status: Active Protocol: Document 03/31/19 07:30 AMB (Rec: 04/01/19 07:46 AMB [email or web address]) Physical Therapy Assessment Goals Three Impairment pain Junk Removal Specialist Goal (LTG) Chrissy will be able to work 4 hours with 3/10 pain or less. LTG Duration 8 weeks Two Impairment strength Short Term Goal (STG) Chrissy will increase her strength to 5/5 in all planes. STG Duration 4 weeks Long-Term Goal (LTG) Chrissy will lift 20 pounds to shoulder height without an increase in baseline pain. LTG Duration 8 weeks One Impairment ROM Short Term Goal (STG) Chrissy will increase abduction AROM to 170 degrees without pain. Assessment Summary Assessment Chrissy's ROM has improved significantly with IR, but she remains limited in active abduction (passively her ROM is good). Her strength has improved with external rotation, but remains weak in abduction. 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 Physical Therapy Plan Frequency and Duration Frequency of Treatment 2x/Week Duration of Treatment 6 weeks Plan of Care Start Date 03/30/19 Plan of Care End Date 05/11/19 Therapeutic Interventions Therapeutic Interventions Aquatic Therapy,Home Exercise Program,Joint Mobilizations, Manual Therapy,Neuromuscular Re-education,Self-Care/Home Management,Therapeutic Activities,Therapeutic Exercises Modalities Cold Pack/Ice Massage,Electric Stimulation,Ultrasound Next Visit Focus/Plan Next Note Type Treatment Note Next Visit Plan Progress stretching, shoulder abduction strengthening, scapular stability Plan of Care Dates Plan of Care Start Date 03/30/19 Plan of Care End Date 05/11/19
--- NOTE | 2019-04-04 08:12 | PT.OTN ---
Current Diagnoses Pain in right shoulder (04/04/19) Strain of unspecified muscle, fascia and tendon at shoulder and upper arm level, right arm, initial encounter (04/04/19) Physical Therapy Treatment Note PT-OP-A Visit Information Start: 02/02/19 08:51 Freq: Status: Active Protocol: Document 04/04/19 07:30 AMB (Rec: 04/04/19 07:40 AMB [id number]) Out-Patient Physical Therapy Visit Information Visit Information Visit Type Treatment Note Visit Start Time 07:30 Visit Stop Time 08:15 Total Visit Minutes 45 Visit Number 15 PT-OP-B Current Condition Start: 02/02/19 08:51 Freq: Status: Active Protocol: Document 02/02/19 09:00 AMB (Rec: 02/06/19 10:47 AMB [email or web address]) Current Condition History of Current Condition Onset Date a few months ago Current Complaints R shoulder pain History of Current Condition Chrissy was moving a laundry cart at work and the wheel got caught and her right shoulder was adducted and she felt suddent onset pain. She thought it would go away with time but has been getting worse. 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 She has been noticing clicking in the shoulder that has just started. The pain is worse with overhead movements and is located in the posterior aspect of the glenohumeral joint. She does have a previous back surgery history and has noticed a return of back pain in the last month first thing in the morning and when she is done with work. She has also noticed a pulling in her left foot for the past 3-4 months. Treatment Goals Patient/Caregiver Goals Reduce shoulder pain so she can work normally Prior Functional Status Baseline Function- ADL's Independent Baseline Function- Mobility Independent Current Functional Impairments (Reported) Functional Limitations- Work/School limited ability to push/pull, reach overhead, lift overhead Personal Factors Other Personal Factors That May Effect prior L5S1 discectomy Therapy/Recovery PT-OP-C Subjective Start: 02/02/19 08:51 Freq: Status: Active Protocol: Document 04/04/19 07:30 AMB (Rec: 04/04/19 07:40 AMB [id number]) OP-PT Subjective Patient Comments Patient Comments Pt had ultrasound guided injection at ortho's office and shoulder is feeling better , can still feel it when moving into abduction/external rotation, extension. Hoping to get MRI scheduled soon. Had Xray, was normal. PT-OP-J Posture/Palpation/Skin Start: 02/02/19 08:51 Freq: Status: Active Protocol: Document 02/02/19 09:00 AMB (Rec: 02/02/19 10:31 AMB [email or web address]) Posture Evaluation Comments Posture Comments mild forward shoulder posture in sitting PT-OP-K Range of Motion Start: 02/02/19 08:51 Freq: Status: Active Protocol: Document 03/31/19 07:38 AMB (Rec: 03/31/19 07:46 AMB [id number]) Shoulder Goniometric Range of Motion Shoulder Right Active Flexion 160 Abduction 124 Internal Rotation Behind Back (text) T8 PT-OP-L Special Tests Start: 02/02/19 08:51 Freq: Status: Active Protocol: Document 02/02/19 09:00 AMB (Rec: 02/02/19 10:31 AMB [email or web address]) Special Tests Shoulder Special Tests Acuna Yifan Impingement Test Results negative Neer Impingement Test Results positive Lift-Off Rotator Cuff Test Results positive PT-OP-M Strength Start: 02/02/19 08:51 Freq: Status: Active Protocol: Document 03/31/19 07:38 AMB (Rec: 03/31/19 07:46 AMB [id number]) Shoulder Strength Shoulder Manual Muscle Testing Right Flexion 4+ Good+ Extension 4+ Good+ Abduction (C5) 4+ Good+ External Rotation 4+ Good+ Internal Rotation 5 Normal Left Flexion 5 Normal Extension 5 Normal Abduction (C5) 5 Normal External Rotation 5 Normal Internal Rotation 5 Normal PT-OP-Q Treatments Start: 02/02/19 08:51 Freq: Status: Active Protocol: Document 04/04/19 07:30 AMB (Rec: 04/04/19 07:40 AMB [id number]) Cardio Equipment Upper Body Ergometer (UBE) Duration (Minutes) 7 RPM 60 Other fwd/ backward Therapeutic Exercises Supine Exercises 1 Supine Exercise Name scap protract Resistance 5# Comments 2x10 Sidelying Exercises 2 Sidelying Exercise Name shoulder abduction Resistance 3# Reps/Minutes 2x10 Comments to 90 degrees Standing Exercises 7 Standing Exercise Name wall slide Reps/Minutes 30x4 Comments flexion/scaption 5 Standing Exercise Name shoulder extension Resistance #3 t band Reps/Minutes 2x10 6 Standing Exercise Name shoulder abduction Resistance #3 t band Reps/Minutes 2x10 1 Standing Exercise Name rows Resistance 10# Reps/Minutes 2x10 Manual Therapy Treatment Soft Tissue Mobilization 1 Body Location R GH Mobilization Type Cross-Friction,Strumming Intensity/Depth Moderate Body Position Hooklying Taping 1 Body Location R GH Type of Tape Kinesio Tape Comments 1 Y for superior support, I for scapular retraction PT-OP-R Modalities Start: 02/02/19 08:51 Freq: Status: Active Protocol: Document 02/10/19 10:30 AMB (Rec: 02/10/19 11:31 AMB [email or web address]) Hot Pack/Cold Pack Treatment Cold Pack Location R GH Patient Position Hooklying Treatment Duration (minutes) 10 PT-OP-T Assessment and Plan Start: 02/02/19 08:51 Freq: Status: Active Protocol: Document 04/04/19 07:30 AMB (Rec: 04/04/19 07:40 AMB [id number]) Physical Therapy Assessment Assessment Summary Assessment Chrissy continues to have restriction into abduction and ER. Physical Therapy Plan Next Visit Focus/Plan Next Note Type Treatment Note Next Visit Plan Progress stretching, shoulder abduction strengthening, scapular stability
--- NOTE | 2019-04-06 08:21 | PT.OTN ---
Current Diagnoses Pain in right shoulder (04/06/19) Strain of unspecified muscle, fascia and tendon at shoulder and upper arm level, right arm, initial encounter (04/06/19) Physical Therapy Treatment Note PT-OP-A Visit Information Start: 02/02/19 08:51 Freq: Status: Active Protocol: Document 04/06/19 07:30 AMB (Rec: 04/06/19 07:46 AMB [id number]) Out-Patient Physical Therapy Visit Information Visit Information Visit Type Treatment Note Visit Start Time 07:30 Visit Stop Time 08:15 Total Visit Minutes 45 Visit Number 16 PT-OP-B Current Condition Start: 02/02/19 08:51 Freq: Status: Active Protocol: Document 02/02/19 09:00 AMB (Rec: 02/06/19 10:47 AMB [email or web address]) Current Condition History of Current Condition Onset Date a few months ago Current Complaints R shoulder pain History of Current Condition Chrissy was moving a laundry cart at work and the wheel got caught and her right shoulder was adducted and she felt suddent onset pain. She thought it would go away with time but has been getting worse. 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 She has been noticing clicking in the shoulder that has just started. The pain is worse with overhead movements and is located in the posterior aspect of the glenohumeral joint. She does have a previous back surgery history and has noticed a return of back pain in the last month first thing in the morning and when she is done with work. She has also noticed a pulling in her left foot for the past 3-4 months. Treatment Goals Patient/Caregiver Goals Reduce shoulder pain so she can work normally Prior Functional Status Baseline Function- ADL's Independent Baseline Function- Mobility Independent Current Functional Impairments (Reported) Functional Limitations- Work/School limited ability to push/pull, reach overhead, lift overhead Personal Factors Other Personal Factors That May Effect prior L5S1 discectomy Therapy/Recovery PT-OP-C Subjective Start: 02/02/19 08:51 Freq: Status: Active Protocol: Document 04/06/19 07:30 AMB (Rec: 04/06/19 07:46 AMB [id number]) OP-PT Subjective Patient Comments Patient Comments Pt had to scrub out her washing machine last night and her shoulder is quite sore today. PT-OP-J Posture/Palpation/Skin Start: 02/02/19 08:51 Freq: Status: Active Protocol: Document 02/02/19 09:00 AMB (Rec: 02/02/19 10:31 AMB [email or web address]) Posture Evaluation Comments Posture Comments mild forward shoulder posture in sitting PT-OP-K Range of Motion Start: 02/02/19 08:51 Freq: Status: Active Protocol: Document 03/31/19 07:38 AMB (Rec: 03/31/19 07:46 AMB [id number]) Shoulder Goniometric Range of Motion Shoulder Right Active Flexion 160 Abduction 124 Internal Rotation Behind Back (text) T8 PT-OP-L Special Tests Start: 02/02/19 08:51 Freq: Status: Active Protocol: Document 02/02/19 09:00 AMB (Rec: 02/02/19 10:31 AMB [email or web address]) Special Tests Shoulder Special Tests Acuna Yifan Impingement Test Results negative Neer Impingement Test Results positive Lift-Off Rotator Cuff Test Results positive PT-OP-M Strength Start: 02/02/19 08:51 Freq: Status: Active Protocol: Document 03/31/19 07:38 AMB (Rec: 03/31/19 07:46 AMB [id number]) Shoulder Strength Shoulder Manual Muscle Testing Right Flexion 4+ Good+ Extension 4+ Good+ Abduction (C5) 4+ Good+ External Rotation 4+ Good+ Internal Rotation 5 Normal Left Flexion 5 Normal Extension 5 Normal Abduction (C5) 5 Normal External Rotation 5 Normal Internal Rotation 5 Normal PT-OP-Q Treatments Start: 02/02/19 08:51 Freq: Status: Active Protocol: Document 04/06/19 07:30 AMB (Rec: 04/06/19 08:20 AMB [id number]) Therapeutic Exercises Supine Exercises 2 Supine Exercise Name lat and pec stretch Reps/Minutes 30x2 1 Supine Exercise Name scap protract Resistance 5# Comments 2x10 Standing Exercises 5 Standing Exercise Name shoulder extension Resistance #3 t band Reps/Minutes 2x10 4 Standing Exercise Name shoulder IR Reps/Minutes 2x10 Manual Therapy Treatment Soft Tissue Mobilization 1 Body Location R GH Mobilization Type Cross-Friction,Strumming Intensity/Depth Moderate Body Position Hooklying Taping 1 Body Location R GH Type of Tape Kinesio Tape Comments 1 Y for superior support, I for scapular retraction PT-OP-R Modalities Start: 02/02/19 08:51 Freq: Status: Active Protocol: Document 02/10/19 10:30 AMB (Rec: 02/10/19 11:31 AMB [email or web address]) Hot Pack/Cold Pack Treatment Cold Pack Location R GH Patient Position Hooklying Treatment Duration (minutes) 10 PT-OP-T Assessment and Plan Start: 02/02/19 08:51 Freq: Status: Active Protocol: Document 04/06/19 07:30 AMB (Rec: 04/06/19 07:46 AMB [id number]) Physical Therapy Assessment Assessment Summary Assessment Had planned to increase resistance, but with increase of pain did not increase resistance today. Physical Therapy Plan Next Visit Focus/Plan Next Note Type Treatment Note Next Visit Plan Progress stretching, shoulder abduction strengthening, scapular stability
--- NOTE | 2019-04-13 09:38 | PT.OTN ---
Current Diagnoses Pain in right shoulder (04/13/19) Strain of unspecified muscle, fascia and tendon at shoulder and upper arm level, right arm, initial encounter (04/13/19) Physical Therapy Treatment Note PT-OP-A Visit Information Start: 02/02/19 08:51 Freq: Status: Active Protocol: Document 04/13/19 07:30 AMB (Rec: 04/13/19 08:22 AMB [id number]) Out-Patient Physical Therapy Visit Information Visit Information Visit Type Treatment Note Visit Start Time 07:30 Visit Stop Time 08:15 Total Visit Minutes 45 Visit Number 17 PT-OP-B Current Condition Start: 02/02/19 08:51 Freq: Status: Active Protocol: Document 02/02/19 09:00 AMB (Rec: 02/06/19 10:47 AMB [email or web address]) Current Condition History of Current Condition Onset Date a few months ago Current Complaints R shoulder pain History of Current Condition Chrissy was moving a laundry cart at work and the wheel got caught and her right shoulder was adducted and she felt suddent onset pain. She thought it would go away with time but has been getting worse. 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 She has been noticing clicking in the shoulder that has just started. The pain is worse with overhead movements and is located in the posterior aspect of the glenohumeral joint. She does have a previous back surgery history and has noticed a return of back pain in the last month first thing in the morning and when she is done with work. She has also noticed a pulling in her left foot for the past 3-4 months. Treatment Goals Patient/Caregiver Goals Reduce shoulder pain so she can work normally Prior Functional Status Baseline Function- ADL's Independent Baseline Function- Mobility Independent Current Functional Impairments (Reported) Functional Limitations- Work/School limited ability to push/pull, reach overhead, lift overhead Personal Factors Other Personal Factors That May Effect prior L5S1 discectomy Therapy/Recovery PT-OP-C Subjective Start: 02/02/19 08:51 Freq: Status: Active Protocol: Document 04/13/19 07:30 AMB (Rec: 04/13/19 08:22 AMB [id number]) OP-PT Subjective Patient Comments Patient Comments Pt had to walk her dogs while there was a gas leak at the high school and the pulling on the leashes really increased her shoulder pain over the weekend, and the pain was going down the the elbow again . PT-OP-J Posture/Palpation/Skin Start: 02/02/19 08:51 Freq: Status: Active Protocol: Document 02/02/19 09:00 AMB (Rec: 02/02/19 10:31 AMB [email or web address]) Posture Evaluation Comments Posture Comments mild forward shoulder posture in sitting PT-OP-K Range of Motion Start: 02/02/19 08:51 Freq: Status: Active Protocol: Document 03/31/19 07:38 AMB (Rec: 03/31/19 07:46 AMB [id number]) Shoulder Goniometric Range of Motion Shoulder Right Active Flexion 160 Abduction 124 Internal Rotation Behind Back (text) T8 PT-OP-L Special Tests Start: 02/02/19 08:51 Freq: Status: Active Protocol: Document 02/02/19 09:00 AMB (Rec: 02/02/19 10:31 AMB [email or web address]) Special Tests Shoulder Special Tests Acuna Yifan Impingement Test Results negative Neer Impingement Test Results positive Lift-Off Rotator Cuff Test Results positive PT-OP-M Strength Start: 02/02/19 08:51 Freq: Status: Active Protocol: Document 03/31/19 07:38 AMB (Rec: 03/31/19 07:46 AMB [id number]) Shoulder Strength Shoulder Manual Muscle Testing Right Flexion 4+ Good+ Extension 4+ Good+ Abduction (C5) 4+ Good+ External Rotation 4+ Good+ Internal Rotation 5 Normal Left Flexion 5 Normal Extension 5 Normal Abduction (C5) 5 Normal External Rotation 5 Normal Internal Rotation 5 Normal PT-OP-Q Treatments Start: 02/02/19 08:51 Freq: Status: Active Protocol: Document 04/13/19 07:30 AMB (Rec: 04/13/19 08:22 AMB [id number]) Cardio Equipment Upper Body Ergometer (UBE) Duration (Minutes) 7 RPM 60 Other fwd/ backward Therapeutic Exercises Supine Exercises 2 Supine Exercise Name lat and pec stretch Reps/Minutes 30x2 Standing Exercises 5 Standing Exercise Name shoulder extension Resistance #3 t band Reps/Minutes 2x10 4 Standing Exercise Name shoulder IR Reps/Minutes 2x10 3 Standing Exercise Name wall pushups Reps/Minutes 10 2 Standing Exercise Name shoulder ER isometric with t band Reps/Minutes 2x5 Manual Therapy Treatment Soft Tissue Mobilization 1 Body Location R GH Mobilization Type Cross-Friction,Strumming Intensity/Depth Moderate Body Position Hooklying Taping 1 Body Location R GH Type of Tape Kinesio Tape Comments 1 Y for superior support, I for scapular retraction PT-OP-R Modalities Start: 02/02/19 08:51 Freq: Status: Active Protocol: Document 02/10/19 10:30 AMB (Rec: 02/10/19 11:31 AMB [email or web address]) Hot Pack/Cold Pack Treatment Cold Pack Location R GH Patient Position Hooklying Treatment Duration (minutes) 10 PT-OP-T Assessment and Plan Start: 02/02/19 08:51 Freq: Status: Active Protocol: Document 04/13/19 07:30 AMB (Rec: 04/13/19 08:22 AMB [id number]) Physical Therapy Assessment Assessment Summary Assessment Continued to be flared up, so still working on getting ROM back. Flexion was limited today and pt continuing to notice more sx going down the arm. Physical Therapy Plan Next Visit Focus/Plan Next Note Type Treatment Note Next Visit Plan Progress stretching, shoulder abduction strengthening, scapular stability
--- NOTE | 2019-04-19 12:53 | PT.OTN ---
Current Diagnoses Pain in right shoulder (04/19/19) Strain of unspecified muscle, fascia and tendon at shoulder and upper arm level, right arm, initial encounter (04/19/19) Physical Therapy Treatment Note PT-OP-A Visit Information Start: 02/02/19 08:51 Freq: Status: Active Protocol: Document 04/19/19 12:53 SP (Rec: 04/19/19 13:02 SP [email or web address]) Out-Patient Physical Therapy Visit Information Visit Information Visit Type Treatment Note Visit Start Time 12:18 Visit Stop Time 12:53 Total Visit Minutes 35 Visit Number 18 Number of GROCERY ASSOCIATE Visits 1 PT-OP-B Current Condition Start: 02/02/19 08:51 Freq: Status: Active Protocol: Document 02/02/19 09:00 AMB (Rec: 02/06/19 10:47 AMB [email or web address]) Current Condition History of Current Condition Onset Date a few months ago Current Complaints R shoulder pain History of Current Condition Chrissy was moving a laundry cart at work and the wheel got caught and her right shoulder was adducted and she felt suddent onset pain. She thought it would go away with time but has been getting worse. 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 She has been noticing clicking in the shoulder that has just started. The pain is worse with overhead movements and is located in the posterior aspect of the glenohumeral joint. She does have a previous back surgery history and has noticed a return of back pain in the last month first thing in the morning and when she is done with work. She has also noticed a pulling in her left foot for the past 3-4 months. Treatment Goals Patient/Caregiver Goals Reduce shoulder pain so she can work normally Prior Functional Status Baseline Function- ADL's Independent Baseline Function- Mobility Independent Current Functional Impairments (Reported) Functional Limitations- Work/School limited ability to push/pull, reach overhead, lift overhead Personal Factors Other Personal Factors That May Effect prior L5S1 discectomy Therapy/Recovery PT-OP-C Subjective Start: 02/02/19 08:51 Freq: Status: Active Protocol: Document 04/19/19 12:53 SP (Rec: 04/19/19 13:02 SP [email or web address]) OP-PT Subjective Patient Comments Patient Comments Pt stated very low level pain unless reaches >90* and out to side with RUE. Pt has MRI scheduled for tomorrow. PT-OP-J Posture/Palpation/Skin Start: 02/02/19 08:51 Freq: Status: Active Protocol: Document 02/02/19 09:00 AMB (Rec: 02/02/19 10:31 AMB [email or web address]) Posture Evaluation Comments Posture Comments mild forward shoulder posture in sitting PT-OP-K Range of Motion Start: 02/02/19 08:51 Freq: Status: Active Protocol: Document 03/31/19 07:38 AMB (Rec: 03/31/19 07:46 AMB [id number]) Shoulder Goniometric Range of Motion Shoulder Right Active Flexion 160 Abduction 124 Internal Rotation Behind Back (text) T8 PT-OP-L Special Tests Start: 02/02/19 08:51 Freq: Status: Active Protocol: Document 02/02/19 09:00 AMB (Rec: 02/02/19 10:31 AMB [email or web address]) Special Tests Shoulder Special Tests Acuna Yifan Impingement Test Results negative Neer Impingement Test Results positive Lift-Off Rotator Cuff Test Results positive PT-OP-M Strength Start: 02/02/19 08:51 Freq: Status: Active Protocol: Document 03/31/19 07:38 AMB (Rec: 03/31/19 07:46 AMB [id number]) Shoulder Strength Shoulder Manual Muscle Testing Right Flexion 4+ Good+ Extension 4+ Good+ Abduction (C5) 4+ Good+ External Rotation 4+ Good+ Internal Rotation 5 Normal Left Flexion 5 Normal Extension 5 Normal Abduction (C5) 5 Normal External Rotation 5 Normal Internal Rotation 5 Normal PT-OP-Q Treatments Start: 02/02/19 08:51 Freq: Status: Active Protocol: Document 04/19/19 12:53 SP (Rec: 04/19/19 13:02 SP [email or web address]) Cardio Equipment Upper Body Ergometer (UBE) Duration (Minutes) 7 RPM 60 Other fwd/ backward Therapeutic Exercises Standing Exercises 7 Standing Exercise Name serratus punch ABCs Side right Reps/Minutes a-z x2 sets Comments rest break when tired x1 during sets 5 Standing Exercise Name shoulder extension Resistance #3 t band Reps/Minutes 2x10 Comments cued scap stab 6 Standing Exercise Name wall clock, 3 angles Reps/Minutes 3x5 reps 4 Standing Exercise Name shoulder IR Reps/Minutes 2x10 Comments cued scap stab 2 Standing Exercise Name shoulder ER isometric with t band Reps/Minutes 2x5 Comments cued scap stab- slow eccentric control Manual Therapy Treatment Taping 1 Body Location R GH Type of Tape Kinesio Tape Comments 1 Y for superior support, I for scapular retraction PT-OP-R Modalities Start: 02/02/19 08:51 Freq: Status: Active Protocol: Document 02/10/19 10:30 AMB (Rec: 02/10/19 11:31 AMB [email or web address]) Hot Pack/Cold Pack Treatment Cold Pack Location R GH Patient Position Hooklying Treatment Duration (minutes) 10 PT-OP-T Assessment and Plan Start: 02/02/19 08:51 Freq: Status: Active Protocol: Document 04/19/19 12:53 SP (Rec: 04/19/19 13:02 SP [email or web address]) Physical Therapy Assessment Assessment Summary Assessment Pt tolerated tx well, no adverse reactions to wall clocks and serratus press ABCs today. No increased pain, reported more muscle tiring. Cued for slow muscular control eccentric directioning to increase stabililzation. Physical Therapy Plan Frequency and Duration Frequency of Treatment 2x/Week Duration of Treatment 6 weeks Plan of Care Start Date 03/30/19 Plan of Care End Date 05/11/19 Therapeutic Interventions Therapeutic Interventions Aquatic Therapy,Home Exercise Program,Joint Mobilizations, Manual Therapy,Neuromuscular Re-education,Self-Care/Home Management,Therapeutic Activities,Therapeutic Exercises Modalities Cold Pack/Ice Massage,Electric Stimulation,Ultrasound Next Visit Focus/Plan Next Note Type Treatment Note Next Visit Plan Review HEP: serratus press ABC and wall clock. Add PNF. Progress stretching, shoulder abduction strengthening, scapular stability
--- NOTE | 2019-04-21 12:00 | PT.OTN ---
Current Diagnoses Pain in right shoulder (04/21/19) Strain of unspecified muscle, fascia and tendon at shoulder and upper arm level, right arm, initial encounter (04/21/19) Physical Therapy Treatment Note PT-OP-A Visit Information Start: 02/02/19 08:51 Freq: Status: Active Protocol: Document 04/21/19 10:30 AMB (Rec: 04/21/19 15:49 AMB [email or web address]) Out-Patient Physical Therapy Visit Information Visit Information Visit Type Treatment Note Visit Start Time 10:30 Visit Stop Time 11:15 Total Visit Minutes 45 Visit Number 19 Number of REAL ESTATE APPRAISER Visits 0 PT-OP-B Current Condition Start: 02/02/19 08:51 Freq: Status: Active Protocol: Document 02/02/19 09:00 AMB (Rec: 02/06/19 10:47 AMB [email or web address]) Current Condition History of Current Condition Onset Date a few months ago Current Complaints R shoulder pain History of Current Condition Chrissy was moving a laundry cart at work and the wheel got caught and her right shoulder was adducted and she felt suddent onset pain. She thought it would go away with time but has been getting worse. 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 She has been noticing clicking in the shoulder that has just started. The pain is worse with overhead movements and is located in the posterior aspect of the glenohumeral joint. She does have a previous back surgery history and has noticed a return of back pain in the last month first thing in the morning and when she is done with work. She has also noticed a pulling in her left foot for the past 3-4 months. Treatment Goals Patient/Caregiver Goals Reduce shoulder pain so she can work normally Prior Functional Status Baseline Function- ADL's Independent Baseline Function- Mobility Independent Current Functional Impairments (Reported) Functional Limitations- Work/School limited ability to push/pull, reach overhead, lift overhead Personal Factors Other Personal Factors That May Effect prior L5S1 discectomy Therapy/Recovery PT-OP-C Subjective Start: 02/02/19 08:51 Freq: Status: Active Protocol: Document 04/21/19 10:30 AMB (Rec: 04/21/19 15:49 AMB [email or web address]) OP-PT Subjective Patient Comments Patient Comments Pt states things are about the same. Had the MRI but hasn't gotten the results yet. PT-OP-J Posture/Palpation/Skin Start: 02/02/19 08:51 Freq: Status: Active Protocol: Document 02/02/19 09:00 AMB (Rec: 02/02/19 10:31 AMB [email or web address]) Posture Evaluation Comments Posture Comments mild forward shoulder posture in sitting PT-OP-K Range of Motion Start: 02/02/19 08:51 Freq: Status: Active Protocol: Document 03/31/19 07:38 AMB (Rec: 03/31/19 07:46 AMB [id number]) Shoulder Goniometric Range of Motion Shoulder Right Active Flexion 160 Abduction 124 Internal Rotation Behind Back (text) T8 PT-OP-L Special Tests Start: 02/02/19 08:51 Freq: Status: Active Protocol: Document 02/02/19 09:00 AMB (Rec: 02/02/19 10:31 AMB [email or web address]) Special Tests Shoulder Special Tests Acuna Yifan Impingement Test Results negative Neer Impingement Test Results positive Lift-Off Rotator Cuff Test Results positive PT-OP-M Strength Start: 02/02/19 08:51 Freq: Status: Active Protocol: Document 03/31/19 07:38 AMB (Rec: 03/31/19 07:46 AMB [id number]) Shoulder Strength Shoulder Manual Muscle Testing Right Flexion 4+ Good+ Extension 4+ Good+ Abduction (C5) 4+ Good+ External Rotation 4+ Good+ Internal Rotation 5 Normal Left Flexion 5 Normal Extension 5 Normal Abduction (C5) 5 Normal External Rotation 5 Normal Internal Rotation 5 Normal PT-OP-Q Treatments Start: 02/02/19 08:51 Freq: Status: Active Protocol: Document 04/21/19 10:30 AMB (Rec: 04/22/19 08:50 AMB [email or web address]) Cardio Equipment Upper Body Ergometer (UBE) Duration (Minutes) 7 RPM 60 Other fwd/ backward Therapeutic Exercises Prone Exercises 1 Prone Exercise Name I, Y, T Resistance AROM Reps/Minutes 2x10 ea Comments chest on 65cm ball Standing Exercises 5 Standing Exercise Name shoulder extension Resistance #3 t band Reps/Minutes 2x10 Comments cued scap stab 6 Standing Exercise Name wall clock, 3 angles Reps/Minutes 3x5 reps 4 Standing Exercise Name shoulder IR Reps/Minutes 2x10 Comments cued scap stab 2 Standing Exercise Name shoulder ER isometric with t band Reps/Minutes 2x10 Comments cued scap stab- Manual Therapy Treatment Soft Tissue Mobilization 1 Body Location R GH Mobilization Type Cross-Friction,Strumming Intensity/Depth Moderate Body Position Hooklying Taping 1 Body Location R GH Type of Tape Kinesio Tape Comments 1 Y for superior support, I for scapular retraction Other Other Manual Treatments contract relax at 90 degrees shoulder flexion multiple angles PT-OP-R Modalities Start: 02/02/19 08:51 Freq: Status: Active Protocol: Document 02/10/19 10:30 AMB (Rec: 02/10/19 11:31 AMB [email or web address]) Hot Pack/Cold Pack Treatment Cold Pack Location R GH Patient Position Hooklying Treatment Duration (minutes) 10 PT-OP-T Assessment and Plan Start: 02/02/19 08:51 Freq: Status: Active Protocol: Document 04/21/19 10:30 AMB (Rec: 04/22/19 08:50 AMB [email or web address]) Physical Therapy Assessment Assessment Summary Assessment Pt is overall feeling better from her recent pain flare. Will need to start strengthening more in over shoulder positions as tolerated, but this has been challenging for her in the past. She is following up with ortho surgeon tomorrow to go over MRI and their plan may affect our plan in PT progression as well. Physical Therapy Plan Frequency and Duration Frequency of Treatment 2x/Week Duration of Treatment 6 weeks Plan of Care Start Date 03/30/19 Plan of Care End Date 05/11/19 Next Visit Focus/Plan Next Note Type Treatment Note Next Visit Plan Review HEP: serratus press ABC and wall clock. Add PNF, working into above shoulder height as tolerated
--- NOTE | 2019-04-26 13:19 | PT-OP ANOTE ---
Pt called less than 24 hrs, had to cancel today's appt secondary to son sick. 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
--- NOTE | 2019-04-28 12:00 | PT.OTN ---
Current Diagnoses Pain in right shoulder (04/28/19) Strain of unspecified muscle, fascia and tendon at shoulder and upper arm level, right arm, initial encounter (04/28/19) Physical Therapy Treatment Note PT-OP-A Visit Information Start: 02/02/19 08:51 Freq: Status: Active Protocol: Document 04/28/19 10:30 AMB (Rec: 04/28/19 11:27 AMB [id number]) Out-Patient Physical Therapy Visit Information Visit Information Visit Type Treatment Note Visit Start Time 10:30 Visit Stop Time 11:15 Total Visit Minutes 45 Visit Number 20 PT-OP-B Current Condition Start: 02/02/19 08:51 Freq: Status: Active Protocol: Document 02/02/19 09:00 AMB (Rec: 02/06/19 10:47 AMB [email or web address]) Current Condition History of Current Condition Onset Date a few months ago Current Complaints R shoulder pain History of Current Condition Chrissy was moving a laundry cart at work and the wheel got caught and her right shoulder was adducted and she felt suddent onset pain. She thought it would go away with time but has been getting worse. 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 She has been noticing clicking in the shoulder that has just started. The pain is worse with overhead movements and is located in the posterior aspect of the glenohumeral joint. She does have a previous back surgery history and has noticed a return of back pain in the last month first thing in the morning and when she is done with work. She has also noticed a pulling in her left foot for the past 3-4 months. Treatment Goals Patient/Caregiver Goals Reduce shoulder pain so she can work normally Prior Functional Status Baseline Function- ADL's Independent Baseline Function- Mobility Independent Current Functional Impairments (Reported) Functional Limitations- Work/School limited ability to push/pull, reach overhead, lift overhead Personal Factors Other Personal Factors That May Effect prior L5S1 discectomy Therapy/Recovery PT-OP-C Subjective Start: 02/02/19 08:51 Freq: Status: Active Protocol: Document 04/28/19 10:30 AMB (Rec: 04/29/19 08:59 AMB [email or web address]) OP-PT Subjective Patient Comments Patient Comments Per pt's report said she had tendonitis. She isn't sure about a timeline for L&I. PT-OP-J Posture/Palpation/Skin Start: 02/02/19 08:51 Freq: Status: Active Protocol: Document 02/02/19 09:00 AMB (Rec: 02/02/19 10:31 AMB [email or web address]) Posture Evaluation Comments Posture Comments mild forward shoulder posture in sitting PT-OP-K Range of Motion Start: 02/02/19 08:51 Freq: Status: Active Protocol: Document 03/31/19 07:38 AMB (Rec: 03/31/19 07:46 AMB [id number]) Shoulder Goniometric Range of Motion Shoulder Right Active Flexion 160 Abduction 124 Internal Rotation Behind Back (text) T8 PT-OP-L Special Tests Start: 02/02/19 08:51 Freq: Status: Active Protocol: Document 02/02/19 09:00 AMB (Rec: 02/02/19 10:31 AMB [email or web address]) Special Tests Shoulder Special Tests Acuna Yifan Impingement Test Results negative Neer Impingement Test Results positive Lift-Off Rotator Cuff Test Results positive PT-OP-M Strength Start: 02/02/19 08:51 Freq: Status: Active Protocol: Document 03/31/19 07:38 AMB (Rec: 03/31/19 07:46 AMB [id number]) Shoulder Strength Shoulder Manual Muscle Testing Right Flexion 4+ Good+ Extension 4+ Good+ Abduction (C5) 4+ Good+ External Rotation 4+ Good+ Internal Rotation 5 Normal Left Flexion 5 Normal Extension 5 Normal Abduction (C5) 5 Normal External Rotation 5 Normal Internal Rotation 5 Normal PT-OP-Q Treatments Start: 02/02/19 08:51 Freq: Status: Active Protocol: Document 04/28/19 10:30 AMB (Rec: 04/29/19 08:59 AMB [email or web address]) Therapeutic Exercises Supine Exercises 1 Supine Exercise Name alternating isometrics at 90 degrees shoulder flexion Reps/Minutes all planes Prone Exercises 1 Prone Exercise Name I, Y, T Resistance AROM Reps/Minutes 2x10 ea Comments chest on 65cm ball Standing Exercises 7 Standing Exercise Name serratus punch ABCs Side right Reps/Minutes a-z x2 sets Comments rest break when tired x1 during sets 4 Standing Exercise Name shoulder IR Resistance #3 t band Reps/Minutes 2x10 Comments cued scap stab 3 Standing Exercise Name PNF D2 flexion Resistance #1 t band Comments modified to avoid shoulder flexion much above shoulder height 2 Standing Exercise Name shoulder ER AROM Resistance #3 tband Reps/Minutes 2x10 Comments cued scap stab- Manual Therapy Treatment Soft Tissue Mobilization 1 Body Location R GH Mobilization Type Cross-Friction,Strumming Intensity/Depth Moderate Body Position Hooklying Taping 1 Body Location R GH Type of Tape Kinesio Tape Comments 1 Y for superior support, I for scapular retraction PT-OP-R Modalities Start: 02/02/19 08:51 Freq: Status: Active Protocol: Document 02/10/19 10:30 AMB (Rec: 02/10/19 11:31 AMB [email or web address]) Hot Pack/Cold Pack Treatment Cold Pack Location R GH Patient Position Hooklying Treatment Duration (minutes) 10 PT-OP-T Assessment and Plan Start: 02/02/19 08:51 Freq: Status: Active Protocol: Document 04/28/19 10:30 AMB (Rec: 04/29/19 08:59 AMB [email or web address]) Physical Therapy Assessment Goals Three Impairment pain Change Management Consultant Goal (LTG) Chrissy will be able to work 4 hours with 3/10 pain or less. LTG Duration 8 weeks Two Impairment strength Short Term Goal (STG) Chrissy will increase her strength to 5/5 in all planes. STG Duration 4 weeks Halfway Goal (LTG) Chrissy will lift 20 pounds to shoulder height without an increase in baseline pain. LTG Duration 8 weeks One Impairment ROM Short Term Goal (STG) Chrissy will increase abduction AROM to 170 degrees without pain. Assessment Summary Assessment Pt given handout for serratus ABC, wall clock, and PNF diagonlas with theraband. Recheck how pt is tolerating increased strengthening at next visit. Physical Therapy Plan Next Visit Focus/Plan Next Note Type Treatment Note Next Visit Plan Consider scheduling more visits, will need to get more L&I auth.
--- NOTE | 2019-05-03 10:30 | PT.OTN ---
Current Diagnoses Pain in right shoulder (05/03/19) Strain of unspecified muscle, fascia and tendon at shoulder and upper arm level, right arm, initial encounter (05/03/19) Physical Therapy Treatment Note PT-OP-A Visit Information Start: 02/02/19 08:51 Freq: Status: Active Protocol: Document 05/03/19 09:54 SP (Rec: 05/03/19 11:39 SP [id number]) Out-Patient Physical Therapy Visit Information Visit Information Visit Type Treatment Note Visit Start Time 09:54 Visit Stop Time 10:30 Total Visit Minutes 36 Visit Number 21 Number of BOOKMAKER MAP Visits 1 PT-OP-B Current Condition Start: 02/02/19 08:51 Freq: Status: Active Protocol: Document 02/02/19 09:00 AMB (Rec: 02/06/19 10:47 AMB [email or web address]) Current Condition History of Current Condition Onset Date a few months ago Current Complaints R shoulder pain History of Current Condition Chrissy was moving a laundry cart at work and the wheel got caught and her right shoulder was adducted and she felt suddent onset pain. She thought it would go away with time but has been getting worse. 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 She has been noticing clicking in the shoulder that has just started. The pain is worse with overhead movements and is located in the posterior aspect of the glenohumeral joint. She does have a previous back surgery history and has noticed a return of back pain in the last month first thing in the morning and when she is done with work. She has also noticed a pulling in her left foot for the past 3-4 months. Treatment Goals Patient/Caregiver Goals Reduce shoulder pain so she can work normally Prior Functional Status Baseline Function- ADL's Independent Baseline Function- Mobility Independent Current Functional Impairments (Reported) Functional Limitations- Work/School limited ability to push/pull, reach overhead, lift overhead Personal Factors Other Personal Factors That May Effect prior L5S1 discectomy Therapy/Recovery PT-OP-C Subjective Start: 02/02/19 08:51 Freq: Status: Active Protocol: Document 05/03/19 09:54 SP (Rec: 05/03/19 11:39 SP [id number]) OP-PT Subjective Patient Comments Patient Comments Pt reported hasn't done any of her exercises since last visit due abdominal discomfort , thought had a kidney stone but better today, it's alot better today so doesn't think will call physician. PT-OP-J Posture/Palpation/Skin Start: 02/02/19 08:51 Freq: Status: Active Protocol: Document 02/02/19 09:00 AMB (Rec: 02/02/19 10:31 AMB [email or web address]) Posture Evaluation Comments Posture Comments mild forward shoulder posture in sitting PT-OP-K Range of Motion Start: 02/02/19 08:51 Freq: Status: Active Protocol: Document 03/31/19 07:38 AMB (Rec: 03/31/19 07:46 AMB [id number]) Shoulder Goniometric Range of Motion Shoulder Right Active Flexion 160 Abduction 124 Internal Rotation Behind Back (text) T8 PT-OP-L Special Tests Start: 02/02/19 08:51 Freq: Status: Active Protocol: Document 02/02/19 09:00 AMB (Rec: 02/02/19 10:31 AMB [email or web address]) Special Tests Shoulder Special Tests Acuna Yifan Impingement Test Results negative Neer Impingement Test Results positive Lift-Off Rotator Cuff Test Results positive PT-OP-M Strength Start: 02/02/19 08:51 Freq: Status: Active Protocol: Document 03/31/19 07:38 AMB (Rec: 03/31/19 07:46 AMB [id number]) Shoulder Strength Shoulder Manual Muscle Testing Right Flexion 4+ Good+ Extension 4+ Good+ Abduction (C5) 4+ Good+ External Rotation 4+ Good+ Internal Rotation 5 Normal Left Flexion 5 Normal Extension 5 Normal Abduction (C5) 5 Normal External Rotation 5 Normal Internal Rotation 5 Normal PT-OP-Q Treatments Start: 02/02/19 08:51 Freq: Status: Active Protocol: Document 05/03/19 09:54 SP (Rec: 05/03/19 11:39 SP [id number]) Therapeutic Exercises Prone Exercises 1 Prone Exercise Name I, Y, T Resistance AROM Reps/Minutes 1x10 AROM, 2# DB x10 Comments chest on 65cm ball Standing Exercises 6 Standing Exercise Name wall clock, 3 angles Reps/Minutes 3x5 reps 3 Standing Exercise Name PNF D2 flexion Resistance #1 t band Comments modified to avoid shoulder flexion much above shoulder height 1 Standing Exercise Name D1 ext/flex Resistance #3 Tb Reps/Minutes 3x10 Comments Review HEP Manual Therapy Treatment Soft Tissue Mobilization 1 Body Location R anterior GH Mobilization Type Cross-Friction,Strumming Intensity/Depth Moderate Body Position Hooklying Joint Mobilizations 1 Joint GH jt post/inferior glides Grade II Body Position Supine PT-OP-R Modalities Start: 02/02/19 08:51 Freq: Status: Active Protocol: Document 02/10/19 10:30 AMB (Rec: 02/10/19 11:31 AMB [email or web address]) Hot Pack/Cold Pack Treatment Cold Pack Location R GH Patient Position Hooklying Treatment Duration (minutes) 10 PT-OP-T Assessment and Plan Start: 02/02/19 08:51 Freq: Status: Active Protocol: Document 05/03/19 09:54 SP (Rec: 05/03/19 11:39 SP [id number]) Physical Therapy Assessment Goals Three Impairment pain Fci Goal (LTG) Chrissy will be able to work 4 hours with 3/10 pain or less. LTG Duration 8 weeks Two Impairment strength Short Term Goal (STG) Chrissy will increase her strength to 5/5 in all planes. STG Duration 4 weeks Metal Furrer Goal (LTG) Chrissy will lift 20 pounds to shoulder height without an increase in baseline pain. LTG Duration 8 weeks One Impairment ROM Short Term Goal (STG) Chrissy will increase abduction AROM to 170 degrees without pain. Assessment Summary Assessment Reviewed HEP provided last tx: prone SB, wall clock, and PNF diagonals with theraband with good scap stab cued CS neutral to decrease Post neck mm recruitment, she was able to tolerated increased resistance 2# DB during prone T, I, Y. Physical Therapy Plan Frequency and Duration Frequency of Treatment 2x/Week Duration of Treatment 6 weeks Plan of Care Start Date 03/30/19 Plan of Care End Date 05/11/19 Therapeutic Interventions Therapeutic Interventions Aquatic Therapy,Home Exercise Program,Joint Mobilizations, Manual Therapy,Neuromuscular Re-education,Self-Care/Home Management,Therapeutic Activities,Therapeutic Exercises Modalities Cold Pack/Ice Massage,Electric Stimulation,Ultrasound Next Visit Focus/Plan Next Note Type Treatment Note Next Visit Plan Discussed with patient PT calling physician for more appt authorization to continue PT after 05/11/19 only 3 more appts scheduled, verbal confirmation. Assess tolerance to increase 2# resistance during prone SB ex last tx.
--- NOTE | 2019-05-05 14:35 | PT.OPPOC ---
Current Diagnoses Pain in right shoulder (05/05/19) Strain of unspecified muscle, fascia and tendon at shoulder and upper arm level, right arm, initial encounter (05/05/19) Visit Care Team Role Provider Type Kirk Holland MD Attending Provider Physician Primary Care Provider Specialty: Family Practice Address: [address] [place] [address], [facility] [place], [address] Email: [email or web address] Plan Of Care PT-OP-T Assessment and Plan Start: 02/02/19 08:51 Freq: Status: Active Protocol: Document 05/05/19 09:45 AMB (Rec: 05/08/19 14:33 AMB [email or web address]) Physical Therapy Assessment Goals Three Impairment pain 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 05/05: at rest pt has 0/10 pain but has not yet been able to return to work LTG Duration 8 weeks Two Impairment strength Short Term Goal (STG) Chrissy will increase her strength to 5/5 in all planes. 05/08: strength ranges from 4 -5/10 STG Duration 4 weeks Drop Hammer Pile Driver Operator Goal (LTG) Chrissy will lift 20 pounds to shoulder height without an increase in baseline pain. LTG Duration 8 weeks One Impairment ROM Short Term Goal (STG) Chrissy will increase abduction AROM to 170 degrees without pain. PROGRESS MADE: 132 degrees Assessment Summary Assessment Chrissy has been progressing with her strengthening, but continues to be nervous about return to work and having to use the shoulder for an entire shift. Her manual muscle testing and range of motion have both improved since the last progress note, but she continues to be limited, especially into abduction. Physical Therapy Plan Frequency and Duration Frequency of Treatment 2x/Week Duration of Treatment 8 weeks Plan of Care Start Date 05/05/19 Plan of Care End Date 06/30/19 Therapeutic Interventions Therapeutic Interventions Aquatic Therapy,Home Exercise Program,Joint Mobilizations, Manual Therapy,Neuromuscular Re-education,Self-Care/Home Management,Therapeutic Activities,Therapeutic Exercises Modalities Cold Pack/Ice Massage,Electric Stimulation,Ultrasound Next Visit Focus/Plan Next Note Type Treatment Note Next Visit Plan Continue to progress strengthening, pt continues to be most limited with abduction. Plan of Care Dates Plan of Care Start Date 05/05/19 Plan of Care End Date 06/30/19
--- NOTE | 2019-05-05 14:35 | PT.OTN ---
Current Diagnoses Pain in right shoulder (05/05/19) Strain of unspecified muscle, fascia and tendon at shoulder and upper arm level, right arm, initial encounter (05/05/19) Physical Therapy Treatment Note PT-OP-A Visit Information Start: 02/02/19 08:51 Freq: Status: Active Protocol: Document 05/05/19 09:45 AMB (Rec: 05/05/19 16:17 AMB [email or web address]) Out-Patient Physical Therapy Visit Information Visit Information Visit Type Treatment Note Visit Start Time 09:45 Visit Stop Time 10:30 Total Visit Minutes 45 Visit Number 22 Number of CASTABLES WORKER Visits 0 PT-OP-B Current Condition Start: 02/02/19 08:51 Freq: Status: Active Protocol: Document 02/02/19 09:00 AMB (Rec: 02/06/19 10:47 AMB [email or web address]) Current Condition History of Current Condition Onset Date a few months ago Current Complaints R shoulder pain History of Current Condition Chrissy was moving a laundry cart at work and the wheel got caught and her right shoulder was adducted and she felt suddent onset pain. She thought it would go away with time but has been getting worse. 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 She has been noticing clicking in the shoulder that has just started. The pain is worse with overhead movements and is located in the posterior aspect of the glenohumeral joint. She does have a previous back surgery history and has noticed a return of back pain in the last month first thing in the morning and when she is done with work. She has also noticed a pulling in her left foot for the past 3-4 months. Treatment Goals Patient/Caregiver Goals Reduce shoulder pain so she can work normally Prior Functional Status Baseline Function- ADL's Independent Baseline Function- Mobility Independent Current Functional Impairments (Reported) Functional Limitations- Work/School limited ability to push/pull, reach overhead, lift overhead Personal Factors Other Personal Factors That May Effect prior L5S1 discectomy Therapy/Recovery PT-OP-C Subjective Start: 02/02/19 08:51 Freq: Status: Active Protocol: Document 05/05/19 09:45 AMB (Rec: 05/05/19 16:17 AMB [email or web address]) OP-PT Subjective Patient Comments Patient Comments Pt reports shoulder has been feeling good when at rest, has been doing her exercises PT-OP-J Posture/Palpation/Skin Start: 02/02/19 08:51 Freq: Status: Active Protocol: Document 02/02/19 09:00 AMB (Rec: 02/02/19 10:31 AMB [email or web address]) Posture Evaluation Comments Posture Comments mild forward shoulder posture in sitting PT-OP-K Range of Motion Start: 02/02/19 08:51 Freq: Status: Active Protocol: Document 05/05/19 10:06 AMB (Rec: 05/05/19 10:15 AMB [id number]) Shoulder Goniometric Range of Motion Shoulder Right Active Flexion 170 Abduction 132 Internal Rotation Behind Back (text) T5 PT-OP-L Special Tests Start: 02/02/19 08:51 Freq: Status: Active Protocol: Document 02/02/19 09:00 AMB (Rec: 02/02/19 10:31 AMB [email or web address]) Special Tests Shoulder Special Tests Acuna Yifan Impingement Test Results negative Neer Impingement Test Results positive Lift-Off Rotator Cuff Test Results positive PT-OP-M Strength Start: 02/02/19 08:51 Freq: Status: Active Protocol: Document 05/05/19 10:06 AMB (Rec: 05/05/19 10:15 AMB [id number]) Shoulder Strength Shoulder Manual Muscle Testing Right Flexion 4 Good Extension 4+ Good+ Abduction (C5) 4 Good External Rotation 4+ Good+ Internal Rotation 5 Normal PT-OP-Q Treatments Start: 02/02/19 08:51 Freq: Status: Active Protocol: Document 05/05/19 09:45 AMB (Rec: 05/08/19 14:33 AMB [email or web address]) Therapeutic Exercises Supine Exercises 1 Supine Exercise Name alternating isometrics at 90 degrees shoulder flexion Reps/Minutes all planes Standing Exercises 7 Standing Exercise Name serratus punch ABCs Side right Reps/Minutes a-z x2 sets Comments rest break when tired x1 during sets 3 Standing Exercise Name PNF D2 flexion Resistance #1 t band Comments modified to avoid shoulder flexion much above shoulder height 2 Standing Exercise Name shoulder ER AROM Resistance #3 tband Reps/Minutes 2x10 Comments cued scap stab- 1 Standing Exercise Name D1 ext/flex Resistance #3 Tb Reps/Minutes 3x10 Comments Review HEP Manual Therapy Treatment Taping 1 Body Location R GH Type of Tape Kinesio Tape Comments 1 Y for superior support, I for scapular retraction PT-OP-R Modalities Start: 02/02/19 08:51 Freq: Status: Active Protocol: Document 02/10/19 10:30 AMB (Rec: 02/10/19 11:31 AMB [email or web address]) Hot Pack/Cold Pack Treatment Cold Pack Location R GH Patient Position Hooklying Treatment Duration (minutes) 10 PT-OP-T Assessment and Plan Start: 02/02/19 08:51 Freq: Status: Active Protocol: Document 05/05/19 09:45 AMB (Rec: 05/08/19 14:33 AMB [email or web address]) Physical Therapy Assessment Goals Three Impairment pain Care Home Goal (LTG) Chrissy will be able to work 4 hours with 3/10 pain or less. 05/05: at rest pt has 0/10 pain but has not yet been able to return to work LTG Duration 8 weeks Two Impairment strength Short Term Goal (STG) Chrissy will increase her strength to 5/5 in all planes. 05/08: strength ranges from 4 -5/10 STG Duration 4 weeks Care Home Goal (LTG) Chrissy will lift 20 pounds to shoulder height without an increase in baseline pain. LTG Duration 8 weeks One Impairment ROM Short Term Goal (STG) Chrissy will increase abduction AROM to 170 degrees without pain. PROGRESS MADE: 132 degrees Assessment Summary Assessment Chrissy has been progressing with her strengthening, but continues to be nervous about return to work and having to use the shoulder for an entire shift. Her manual muscle testing and range of motion have both improved since the last progress note, but she continues to be limited, especially into abduction. Physical Therapy Plan Frequency and Duration Frequency of Treatment 2x/Week Duration of Treatment 8 weeks Plan of Care Start Date 05/05/19 Plan of Care End Date 06/30/19 Therapeutic Interventions Therapeutic Interventions Aquatic Therapy,Home Exercise Program,Joint Mobilizations, Manual Therapy,Neuromuscular Re-education,Self-Care/Home Management,Therapeutic Activities,Therapeutic Exercises Modalities Cold Pack/Ice Massage,Electric Stimulation,Ultrasound Next Visit Focus/Plan Next Note Type Treatment Note Next Visit Plan Continue to progress strengthening, pt continues to be most limited with abduction.
--- NOTE | 2019-05-09 10:00 | PT-OP ANOTE ---
Pt called this morning to reschedule appt to tomorrow, pretty sore and wanted another day to recover, plans on performing her HEP later today.
--- NOTE | 2019-05-11 15:54 | PT.OTN ---
Current Diagnoses Pain in right shoulder (05/11/19) Strain of unspecified muscle, fascia and tendon at shoulder and upper arm level, right arm, initial encounter (05/11/19) Physical Therapy Treatment Note PT-OP-A Visit Information Start: 02/02/19 08:51 Freq: Status: Active Protocol: Document 05/11/19 13:00 AMB (Rec: 05/11/19 13:52 AMB [id number]) Out-Patient Physical Therapy Visit Information Visit Information Visit Type Treatment Note Visit Start Time 13:00 Visit Stop Time 13:45 Total Visit Minutes 45 Visit Number 23 Number of TIMBER APPRAISER Visits 0 PT-OP-B Current Condition Start: 02/02/19 08:51 Freq: Status: Active Protocol: Document 02/02/19 09:00 AMB (Rec: 02/06/19 10:47 AMB [email or web address]) Current Condition History of Current Condition Onset Date a few months ago Current Complaints R shoulder pain History of Current Condition Chrissy was moving a laundry cart at work and the wheel got caught and her right shoulder was adducted and she felt suddent onset pain. She thought it would go away with time but has been getting worse. 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 She has been noticing clicking in the shoulder that has just started. The pain is worse with overhead movements and is located in the posterior aspect of the glenohumeral joint. She does have a previous back surgery history and has noticed a return of back pain in the last month first thing in the morning and when she is done with work. She has also noticed a pulling in her left foot for the past 3-4 months. 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 PT-OP-J Posture/Palpation/Skin Start: 02/02/19 08:51 Freq: Status: Active Protocol: Document 02/02/19 09:00 AMB (Rec: 02/02/19 10:31 AMB [email or web address]) Posture Evaluation Comments Posture Comments mild forward shoulder posture in sitting PT-OP-K Range of Motion Start: 02/02/19 08:51 Freq: Status: Active Protocol: Document 05/05/19 10:06 AMB (Rec: 05/05/19 10:15 AMB [id number]) Shoulder Goniometric Range of Motion Shoulder Right Active Flexion 170 Abduction 132 Internal Rotation Behind Back (text) T5 PT-OP-L Special Tests Start: 02/02/19 08:51 Freq: Status: Active Protocol: Document 02/02/19 09:00 AMB (Rec: 02/02/19 10:31 AMB [email or web address]) Special Tests Shoulder Special Tests Acuna Yifan Impingement Test Results negative Neer Impingement Test Results positive Lift-Off Rotator Cuff Test Results positive PT-OP-M Strength Start: 02/02/19 08:51 Freq: Status: Active Protocol: Document 05/05/19 10:06 AMB (Rec: 05/05/19 10:15 AMB [id number]) Shoulder Strength Shoulder Manual Muscle Testing Right Flexion 4 Good Extension 4+ Good+ Abduction (C5) 4 Good External Rotation 4+ Good+ Internal Rotation 5 Normal PT-OP-Q Treatments Start: 02/02/19 08:51 Freq: Status: Active Protocol: Document 05/11/19 13:00 AMB (Rec: 05/13/19 15:53 AMB [id number]) Therapeutic Exercises Supine Exercises 1 Supine Exercise Name alternating isometrics at 90 degrees shoulder flexion Reps/Minutes all planes Prone Exercises 1 Prone Exercise Name I, Y, T Resistance AROM Reps/Minutes 1x10 AROM, 2# DB x10 Comments chest on 65cm ball Standing Exercises 7 Standing Exercise Name serratus punch ABCs Side right Reps/Minutes a-z x2 sets Comments rest break when tired x1 during sets 5 Standing Exercise Name shoulder extension Resistance #3 t band Reps/Minutes 2x10 Comments cued scap stab 4 Standing Exercise Name shoulder IR Resistance #3 t band Reps/Minutes 2x10 Comments cued scap stab 2 Standing Exercise Name shoulder ER AROM Resistance #3 tband Reps/Minutes 2x10 Comments cued scap stab- Manual Therapy Treatment Soft Tissue Mobilization 1 Body Location R anterior GH Mobilization Type Cross-Friction,Strumming Intensity/Depth Moderate Body Position Hooklying Joint Mobilizations 1 Joint GH jt post/inferior glides Grade III Body Position Supine Taping 1 Body Location R GH Type of Tape Kinesio Tape Comments 1 Y for superior support, I for scapular retraction PT-OP-R Modalities Start: 02/02/19 08:51 Freq: Status: Active Protocol: Document 02/10/19 10:30 AMB (Rec: 02/10/19 11:31 AMB [email or web address]) Hot Pack/Cold Pack Treatment Cold Pack Location R GH Patient Position Hooklying Treatment Duration (minutes) 10 PT-OP-T Assessment and Plan Start: 02/02/19 08:51 Freq: Status: Active Protocol: Document 05/11/19 13:00 AMB (Rec: 05/13/19 15:53 AMB [id number]) Physical Therapy Assessment Assessment Summary Assessment Pt did well with band exercises, but we do need to find the right amount of strengthenign with weights that she can tolerate. She only has a 5# weight at home, so we have had to go back to lifting a water bottle for all weight exercises. Physical Therapy Plan Next Visit Focus/Plan Next Note Type Treatment Note Next Visit Plan Continue to progress strengthening, pt continues to be most limited with abduction.
--- NOTE | 2019-05-17 16:00 | PT.OTN ---
Current Diagnoses Pain in right shoulder (05/17/19) Strain of unspecified muscle, fascia and tendon at shoulder and upper arm level, right arm, initial encounter (05/17/19) Physical Therapy Treatment Note PT-OP-A Visit Information Start: 02/02/19 08:51 Freq: Status: Active Protocol: Document 05/17/19 13:45 AMB (Rec: 05/17/19 15:21 AMB [id number]) Out-Patient Physical Therapy Visit Information Visit Information Visit Type Treatment Note Visit Start Time 13:00 Visit Stop Time 13:45 Total Visit Minutes 45 Visit Number 24 Number of HEEL BURNISHER Visits 0 PT-OP-B Current Condition Start: 02/02/19 08:51 Freq: Status: Active Protocol: Document 02/02/19 09:00 AMB (Rec: 02/06/19 10:47 AMB [email or web address]) Current Condition History of Current Condition Onset Date a few months ago Current Complaints R shoulder pain History of Current Condition Chrissy was moving a laundry cart at work and the wheel got caught and her right shoulder was adducted and she felt suddent onset pain. She thought it would go away with time but has been getting worse. 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 She has been noticing clicking in the shoulder that has just started. The pain is worse with overhead movements and is located in the posterior aspect of the glenohumeral joint. She does have a previous back surgery history and has noticed a return of back pain in the last month first thing in the morning and when she is done with work. She has also noticed a pulling in her left foot for the past 3-4 months. Treatment Goals Patient/Caregiver Goals Reduce shoulder pain so she can work normally Prior Functional Status Baseline Function- ADL's Independent Baseline Function- Mobility Independent Current Functional Impairments (Reported) Functional Limitations- Work/School limited ability to push/pull, reach overhead, lift overhead Personal Factors Other Personal Factors That May Effect prior L5S1 discectomy Therapy/Recovery PT-OP-C Subjective Start: 02/02/19 08:51 Freq: Status: Active Protocol: Document 05/17/19 13:45 AMB (Rec: 05/17/19 15:21 AMB [id number]) OP-PT Subjective Patient Comments Patient Comments Pt states she sawed a [place] tree down today, so the shoulder is a bit sore from that. PT-OP-J Posture/Palpation/Skin Start: 02/02/19 08:51 Freq: Status: Active Protocol: Document 02/02/19 09:00 AMB (Rec: 02/02/19 10:31 AMB [email or web address]) Posture Evaluation Comments Posture Comments mild forward shoulder posture in sitting PT-OP-K Range of Motion Start: 02/02/19 08:51 Freq: Status: Active Protocol: Document 05/05/19 10:06 AMB (Rec: 05/05/19 10:15 AMB [id number]) Shoulder Goniometric Range of Motion Shoulder Right Active Flexion 170 Abduction 132 Internal Rotation Behind Back (text) T5 PT-OP-L Special Tests Start: 02/02/19 08:51 Freq: Status: Active Protocol: Document 02/02/19 09:00 AMB (Rec: 02/02/19 10:31 AMB [email or web address]) Special Tests Shoulder Special Tests Acuna Yifan Impingement Test Results negative Neer Impingement Test Results positive Lift-Off Rotator Cuff Test Results positive PT-OP-M Strength Start: 02/02/19 08:51 Freq: Status: Active Protocol: Document 05/05/19 10:06 AMB (Rec: 05/05/19 10:15 AMB [id number]) Shoulder Strength Shoulder Manual Muscle Testing Right Flexion 4 Good Extension 4+ Good+ Abduction (C5) 4 Good External Rotation 4+ Good+ Internal Rotation 5 Normal PT-OP-Q Treatments Start: 02/02/19 08:51 Freq: Status: Active Protocol: Document 05/17/19 13:45 AMB (Rec: 05/19/19 11:43 AMB [email or web address]) Therapeutic Exercises Standing Exercises 7 Standing Exercise Name serratus punch ABCs Side right Resistance #2 Reps/Minutes a-z x2 sets Comments rest break when tired x1 during sets 5 Standing Exercise Name shoulder extension Resistance #3 t band Reps/Minutes 2x10 Comments cued scap stab 4 Standing Exercise Name shoulder IR Resistance #3 t band Reps/Minutes 2x10 Comments cued scap stab 2 Standing Exercise Name shoulder ER AROM Resistance #3 tband Reps/Minutes 2x10 Comments cued scap stab- Manual Therapy Treatment Joint Mobilizations 1 Joint GH jt post/inferior glides Grade III Body Position Supine Taping 1 Body Location R GH Type of Tape Kinesio Tape Comments 1 Y for superior support, I for scapular retraction PT-OP-R Modalities Start: 02/02/19 08:51 Freq: Status: Active Protocol: Document 02/10/19 10:30 AMB (Rec: 02/10/19 11:31 AMB [email or web address]) Hot Pack/Cold Pack Treatment Cold Pack Location R GH Patient Position Hooklying Treatment Duration (minutes) 10 PT-OP-T Assessment and Plan Start: 02/02/19 08:51 Freq: Status: Active Protocol: Document 05/17/19 13:45 AMB (Rec: 05/17/19 15:21 AMB [id number]) Physical Therapy Assessment Assessment Summary Assessment The pt is continuing to have increased pain after trying to increase her resistance. Still tolerating more resistance than initially, but have had to decrease resistance, over shoulder movements. Will try to re- introduce those exercises one by one. Physical Therapy Plan Next Visit Focus/Plan Next Note Type Treatment Note Next Visit Plan Continue to progress strengthening, pt continues to be most limited with abduction.
--- NOTE | 2019-05-24 11:20 | PT.OTN ---
Current Diagnoses Pain in right shoulder (05/24/19) Strain of unspecified muscle, fascia and tendon at shoulder and upper arm level, right arm, initial encounter (05/24/19) Physical Therapy Treatment Note PT-OP-A Visit Information Start: 02/02/19 08:51 Freq: Status: Active Protocol: Document 05/24/19 10:32 SP (Rec: 05/24/19 11:32 SP [id number]) Out-Patient Physical Therapy Visit Information Visit Information Visit Type Treatment Note Visit Start Time 10:32 Visit Stop Time 11:20 Total Visit Minutes 48 Visit Number 25 Number of JACKAROO Visits 1 PT-OP-B Current Condition Start: 02/02/19 08:51 Freq: Status: Active Protocol: Document 02/02/19 09:00 AMB (Rec: 02/06/19 10:47 AMB [email or web address]) Current Condition History of Current Condition Onset Date a few months ago Current Complaints R shoulder pain History of Current Condition Chrissy was moving a laundry cart at work and the wheel got caught and her right shoulder was adducted and she felt suddent onset pain. She thought it would go away with time but has been getting worse. 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 She has been noticing clicking in the shoulder that has just started. The pain is worse with overhead movements and is located in the posterior aspect of the glenohumeral joint. She does have a previous back surgery history and has noticed a return of back pain in the last month first thing in the morning and when she is done with work. She has also noticed a pulling in her left foot for the past 3-4 months. Treatment Goals Patient/Caregiver Goals Reduce shoulder pain so she can work normally Prior Functional Status Baseline Function- ADL's Independent Baseline Function- Mobility Independent Current Functional Impairments (Reported) Functional Limitations- Work/School limited ability to push/pull, reach overhead, lift overhead Personal Factors Other Personal Factors That May Effect prior L5S1 discectomy Therapy/Recovery PT-OP-C Subjective Start: 02/02/19 08:51 Freq: Status: Active Protocol: Document 05/24/19 10:32 SP (Rec: 05/24/19 11:32 SP [id number]) OP-PT Subjective Patient Comments Patient Comments Pt stated was little sore after last tx. Pt stated has a follow up with physician on . PT-OP-J Posture/Palpation/Skin Start: 02/02/19 08:51 Freq: Status: Active Protocol: Document 02/02/19 09:00 AMB (Rec: 02/02/19 10:31 AMB [email or web address]) Posture Evaluation Comments Posture Comments mild forward shoulder posture in sitting PT-OP-K Range of Motion Start: 02/02/19 08:51 Freq: Status: Active Protocol: Document 05/05/19 10:06 AMB (Rec: 05/05/19 10:15 AMB [id number]) Shoulder Goniometric Range of Motion Shoulder Right Active Flexion 170 Abduction 132 Internal Rotation Behind Back (text) T5 PT-OP-L Special Tests Start: 02/02/19 08:51 Freq: Status: Active Protocol: Document 02/02/19 09:00 AMB (Rec: 02/02/19 10:31 AMB [email or web address]) Special Tests Shoulder Special Tests Acuna Yifan Impingement Test Results negative Neer Impingement Test Results positive Lift-Off Rotator Cuff Test Results positive PT-OP-M Strength Start: 02/02/19 08:51 Freq: Status: Active Protocol: Document 05/05/19 10:06 AMB (Rec: 05/05/19 10:15 AMB [id number]) Shoulder Strength Shoulder Manual Muscle Testing Right Flexion 4 Good Extension 4+ Good+ Abduction (C5) 4 Good External Rotation 4+ Good+ Internal Rotation 5 Normal PT-OP-Q Treatments Start: 02/02/19 08:51 Freq: Status: Active Protocol: Document 05/24/19 10:32 SP (Rec: 05/24/19 11:32 SP [id number]) Therapeutic Exercises Supine Exercises 5 Supine Exercise Name PROM FF, ABD Reps/Minutes 2 min 2 Supine Exercise Name FF Side right Resistance 2# DB Reps/Minutes 2x10 Comments slow controlled pacing into end range Prone Exercises plank shld taps Prone Exercise Name plank off knees shld tap Side bilateral Reps/Minutes x5 Comments cued slow pacing Sidelying Exercises 1 Sidelying Exercise Name shoulder abduction Resistance 2# DBx5 then reduced to AROM sec pain over later shld Reps/Minutes 2x10 Comments partial ROM, humeral ER cued slow control Standing Exercises 7 Standing Exercise Name serratus punch ABCs Side right Resistance #3 TB Reps/Minutes a-z x2 sets Comments cued level shlds, mirror provided self feedback 5 Standing Exercise Name shoulder extension Side right Resistance #3 t band Reps/Minutes 2x10 Comments cued scap stab 6 Standing Exercise Name D1 flex/ext Side right Resistance TB #2 Reps/Minutes 2x10 4 Standing Exercise Name shoulder IR Resistance #3 t band Reps/Minutes 2x10 Comments good control 2 Standing Exercise Name shoulder ER AROM Resistance #3 tband Reps/Minutes 2x10 Comments cued scap stab- 1 Standing Exercise Name HABD Side right Resistance #1 TB Reps/Minutes 2x10 Comments cued chest lift, scap depression stability Manual Therapy Treatment Joint Mobilizations 1 Joint GH jt post/inferior glides Grade III Body Position Supine Taping 1 Body Location R GH Type of Tape Kinesio Tape Comments 1 Y for superior support, I for scapular retraction PT-OP-R Modalities Start: 02/02/19 08:51 Freq: Status: Active Protocol: Document 02/10/19 10:30 AMB (Rec: 02/10/19 11:31 AMB [email or web address]) Hot Pack/Cold Pack Treatment Cold Pack Location R GH Patient Position Hooklying Treatment Duration (minutes) 10 PT-OP-T Assessment and Plan Start: 02/02/19 08:51 Freq: Status: Active Protocol: Document 05/24/19 10:32 SP (Rec: 05/24/19 11:32 SP [id number]) Physical Therapy Assessment Goals Three Impairment pain Halfway Goal (LTG) Chrissy will be able to work 4 hours with 3/10 pain or less. 05/05: at rest pt has 0/10 pain but has not yet been able to return to work LTG Duration 8 weeks Two Impairment strength Short Term Goal (STG) Chrissy will increase her strength to 5/5 in all planes. 05/08: strength ranges from 4 -5/10 STG Duration 4 weeks Adz Worker Goal (LTG) Chrissy will lift 20 pounds to shoulder height without an increase in baseline pain. LTG Duration 8 weeks One Impairment ROM Short Term Goal (STG) Chrissy will increase abduction AROM to 170 degrees without pain. PROGRESS MADE: 132 degrees Assessment Summary Assessment Tx tolerated increased resistance to serratus punches but unable to tolerated increased with the other exercises secondary to report of increase pain. Improvement noted in GH stability concentric/eccentric TB directions. Physical Therapy Plan Frequency and Duration Frequency of Treatment 2x/Week Duration of Treatment 8 weeks Plan of Care Start Date 05/05/19 Plan of Care End Date 06/30/19 Therapeutic Interventions Therapeutic Interventions Aquatic Therapy,Home Exercise Program,Joint Mobilizations, Manual Therapy,Neuromuscular Re-education,Self-Care/Home Management,Therapeutic Activities,Therapeutic Exercises Modalities Cold Pack/Ice Massage,Electric Stimulation,Ultrasound Next Visit Focus/Plan Next Note Type Treatment Note Next Visit Plan Assess response to added plank off knees shld taps for WB stabilization. Continue to progress strengthening, pt continues to be most limited with abduction.
--- NOTE | 2019-05-31 15:48 | PT.OTN ---
Current Diagnoses Pain in right shoulder (05/31/19) Strain of unspecified muscle, fascia and tendon at shoulder and upper arm level, right arm, initial encounter (05/31/19) Physical Therapy Treatment Note PT-OP-A Visit Information Start: 02/02/19 08:51 Freq: Status: Active Protocol: Document 05/31/19 14:30 AMB (Rec: 05/31/19 15:16 AMB [id number]) Out-Patient Physical Therapy Visit Information Visit Information Visit Type Treatment Note Visit Start Time 14:30 Visit Stop Time 15:15 Total Visit Minutes 45 Visit Number 26 Number of MOTOR VEHICLE EMISSIONS INSPECTOR Visits 0 PT-OP-B Current Condition Start: 02/02/19 08:51 Freq: Status: Active Protocol: Document 02/02/19 09:00 AMB (Rec: 02/06/19 10:47 AMB [email or web address]) Current Condition History of Current Condition Onset Date a few months ago Current Complaints R shoulder pain History of Current Condition Chrissy was moving a laundry cart at work and the wheel got caught and her right shoulder was adducted and she felt suddent onset pain. She thought it would go away with time but has been getting worse. 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 She has been noticing clicking in the shoulder that has just started. The pain is worse with overhead movements and is located in the posterior aspect of the glenohumeral joint. She does have a previous back surgery history and has noticed a return of back pain in the last month first thing in the morning and when she is done with work. She has also noticed a pulling in her left foot for the past 3-4 months. Treatment Goals Patient/Caregiver Goals Reduce shoulder pain so she can work normally Prior Functional Status Baseline Function- ADL's Independent Baseline Function- Mobility Independent Current Functional Impairments (Reported) Functional Limitations- Work/School limited ability to push/pull, reach overhead, lift overhead Personal Factors Other Personal Factors That May Effect prior L5S1 discectomy Therapy/Recovery PT-OP-C Subjective Start: 02/02/19 08:51 Freq: Status: Active Protocol: Document 05/31/19 14:30 AMB (Rec: 05/31/19 15:48 AMB [id number]) OP-PT Subjective Patient Comments Patient Comments Pt states anterior shoulder has been a bit sore, but it has worked itself out and she is doing ok. She is mostly concerned about being able to push the laundry cart when she returns to work. They are quite heavy and difficult to steer due to only two of the 4 the wheels being steerable. PT-OP-J Posture/Palpation/Skin Start: 02/02/19 08:51 Freq: Status: Active Protocol: Document 02/02/19 09:00 AMB (Rec: 02/02/19 10:31 AMB [email or web address]) Posture Evaluation Comments Posture Comments mild forward shoulder posture in sitting PT-OP-K Range of Motion Start: 02/02/19 08:51 Freq: Status: Active Protocol: Document 05/05/19 10:06 AMB (Rec: 05/05/19 10:15 AMB [id number]) Shoulder Goniometric Range of Motion Shoulder Right Active Flexion 170 Abduction 132 Internal Rotation Behind Back (text) T5 PT-OP-L Special Tests Start: 02/02/19 08:51 Freq: Status: Active Protocol: Document 02/02/19 09:00 AMB (Rec: 02/02/19 10:31 AMB [email or web address]) Special Tests Shoulder Special Tests Acuna Yifan Impingement Test Results negative Neer Impingement Test Results positive Lift-Off Rotator Cuff Test Results positive PT-OP-M Strength Start: 02/02/19 08:51 Freq: Status: Active Protocol: Document 05/05/19 10:06 AMB (Rec: 05/05/19 10:15 AMB [id number]) Shoulder Strength Shoulder Manual Muscle Testing Right Flexion 4 Good Extension 4+ Good+ Abduction (C5) 4 Good External Rotation 4+ Good+ Internal Rotation 5 Normal PT-OP-Q Treatments Start: 02/02/19 08:51 Freq: Status: Active Protocol: Document 05/31/19 14:30 AMB (Rec: 05/31/19 15:48 AMB [id number]) Therapeutic Exercises Supine Exercises 5 Supine Exercise Name PROM FF, ABD Reps/Minutes 2 min Prone Exercises 1 Prone Exercise Name I, Y, T Resistance 2# Comments 2x10 ea Sidelying Exercises 1 Sidelying Exercise Name shoulder abduction Resistance 2# DBx5 then reduced to AROM sec pain over later shld Reps/Minutes 2x10 Comments partial ROM, humeral ER cued slow control Sitting Exercises 1 Sitting Exercise Name katlyn Reps/Minutes 5 min Comments stretching into abduction Standing Exercises 5 Standing Exercise Name shoulder extension Side right Resistance #3 t band Reps/Minutes 2x10 Comments cued scap stab 6 Standing Exercise Name D1 flex/ext Side right Resistance TB #2 Reps/Minutes 2x10 4 Standing Exercise Name shoulder IR Resistance #3 t band Reps/Minutes 2x10 Comments good control 2 Standing Exercise Name shoulder ER AROM Resistance #3 tband Reps/Minutes 2x10 Comments cued scap stab- 1 Standing Exercise Name HABD Side right Resistance #1 TB Reps/Minutes 2x10 Comments cued chest lift, scap depression stability Manual Therapy Treatment Taping 1 Body Location R GH Type of Tape Kinesio Tape Comments 1 Y for superior support, I for scapular retraction PT-OP-R Modalities Start: 02/02/19 08:51 Freq: Status: Active Protocol: Document 02/10/19 10:30 AMB (Rec: 02/10/19 11:31 AMB [email or web address]) Hot Pack/Cold Pack Treatment Cold Pack Location R GH Patient Position Hooklying Treatment Duration (minutes) 10 PT-OP-T Assessment and Plan Start: 02/02/19 08:51 Freq: Status: Active Protocol: Document 05/31/19 14:30 AMB (Rec: 05/31/19 15:16 AMB [id number]) Physical Therapy Assessment Assessment Summary Assessment Pt tolerating plank with soreness but not pain. IYT with 2# without pain. Physical Therapy Plan Next Visit Focus/Plan Next Note Type Treatment Note Next Visit Plan Continue to progress strengthening, pt continues to be most limited with abduction.
--- NOTE | 2019-06-03 16:29 | PT.OTN ---
Current Diagnoses Pain in right shoulder (06/03/19) Strain of unspecified muscle, fascia and tendon at shoulder and upper arm level, right arm, initial encounter (06/03/19) Physical Therapy Treatment Note PT-OP-A Visit Information Start: 02/02/19 08:51 Freq: Status: Active Protocol: Document 06/03/19 14:30 AMB (Rec: 06/03/19 15:47 AMB [id number]) Out-Patient Physical Therapy Visit Information Visit Information Visit Type Treatment Note Visit Start Time 14:30 Visit Stop Time 15:15 Total Visit Minutes 45 Visit Number 27 Number of MOLDER LABELS Visits 0 PT-OP-B Current Condition Start: 02/02/19 08:51 Freq: Status: Active Protocol: Document 02/02/19 09:00 AMB (Rec: 02/06/19 10:47 AMB [email or web address]) Current Condition History of Current Condition Onset Date a few months ago Current Complaints R shoulder pain History of Current Condition Chrissy was moving a laundry cart at work and the wheel got caught and her right shoulder was adducted and she felt suddent onset pain. She thought it would go away with time but has been getting worse. 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 She has been noticing clicking in the shoulder that has just started. The pain is worse with overhead movements and is located in the posterior aspect of the glenohumeral joint. She does have a previous back surgery history and has noticed a return of back pain in the last month first thing in the morning and when she is done with work. She has also noticed a pulling in her left foot for the past 3-4 months. Treatment Goals Patient/Caregiver Goals Reduce shoulder pain so she can work normally Prior Functional Status Baseline Function- ADL's Independent Baseline Function- Mobility Independent Current Functional Impairments (Reported) Functional Limitations- Work/School limited ability to push/pull, reach overhead, lift overhead Personal Factors Other Personal Factors That May Effect prior L5S1 discectomy Therapy/Recovery PT-OP-C Subjective Start: 02/02/19 08:51 Freq: Status: Active Protocol: Document 06/03/19 14:30 AMB (Rec: 06/03/19 15:47 AMB [id number]) OP-PT Subjective Patient Comments Patient Comments Pt has been trying to use her laptop more and that has been irritating the shoulder a bit so she stopped doing it. PT-OP-J Posture/Palpation/Skin Start: 02/02/19 08:51 Freq: Status: Active Protocol: Document 02/02/19 09:00 AMB (Rec: 02/02/19 10:31 AMB [email or web address]) Posture Evaluation Comments Posture Comments mild forward shoulder posture in sitting PT-OP-K Range of Motion Start: 02/02/19 08:51 Freq: Status: Active Protocol: Document 05/05/19 10:06 AMB (Rec: 05/05/19 10:15 AMB [id number]) Shoulder Goniometric Range of Motion Shoulder Right Active Flexion 170 Abduction 132 Internal Rotation Behind Back (text) T5 PT-OP-L Special Tests Start: 02/02/19 08:51 Freq: Status: Active Protocol: Document 02/02/19 09:00 AMB (Rec: 02/02/19 10:31 AMB [email or web address]) Special Tests Shoulder Special Tests Acuna Yifan Impingement Test Results negative Neer Impingement Test Results positive Lift-Off Rotator Cuff Test Results positive PT-OP-M Strength Start: 02/02/19 08:51 Freq: Status: Active Protocol: Document 05/05/19 10:06 AMB (Rec: 05/05/19 10:15 AMB [id number]) Shoulder Strength Shoulder Manual Muscle Testing Right Flexion 4 Good Extension 4+ Good+ Abduction (C5) 4 Good External Rotation 4+ Good+ Internal Rotation 5 Normal PT-OP-Q Treatments Start: 02/02/19 08:51 Freq: Status: Active Protocol: Document 06/03/19 14:30 AMB (Rec: 06/03/19 16:29 AMB [email or web address]) Therapeutic Exercises Prone Exercises 1 Prone Exercise Name I, Y, T Resistance 3# Comments 2x10 ea Standing Exercises 5 Standing Exercise Name shoulder extension Side right Resistance #3 t band Reps/Minutes 2x10 Comments cued scap stab 6 Standing Exercise Name D1 flex/ext Side right Resistance TB #2 Reps/Minutes 2x10 4 Standing Exercise Name shoulder IR Resistance #3 t band Reps/Minutes 2x10 Comments good control 3 Standing Exercise Name flexion Reps/Minutes 2x10 Comments partial ROM to 45 degrees 2 Standing Exercise Name shoulder ER AROM Resistance #3 tband Reps/Minutes 2x10 Comments cued scap stab- 1 Standing Exercise Name HABD Side right Resistance #2 TB Reps/Minutes 2x10 Comments cued chest lift, scap depression stability Manual Therapy Treatment Joint Mobilizations 1 Joint GH jt post/inferior glides Grade III Body Position Supine Taping 1 Body Location R GH Type of Tape Kinesio Tape Comments 1 Y for superior support, I for scapular retraction Other Other Manual Treatments alternating isometrics in supine with arm in 90 degrees flexion PT-OP-R Modalities Start: 02/02/19 08:51 Freq: Status: Active Protocol: Document 02/10/19 10:30 AMB (Rec: 02/10/19 11:31 AMB [email or web address]) Hot Pack/Cold Pack Treatment Cold Pack Location R GH Patient Position Hooklying Treatment Duration (minutes) 10 PT-OP-T Assessment and Plan Start: 02/02/19 08:51 Freq: Status: Active Protocol: Document 06/03/19 14:30 AMB (Rec: 06/03/19 16:29 AMB [email or web address]) Physical Therapy Assessment Assessment Summary Assessment Pt continues to be sore with abduction, but improved tolerance to resisted shoulder flexion today. Physical Therapy Plan Next Visit Focus/Plan Next Note Type Treatment Note Next Visit Plan Assess tolerance to alternating isometrics. Continue to progress strengthening, pt continues to be most limited with abduction.
--- NOTE | 2019-06-22 07:29 | PT.OTN ---
Current Diagnoses Pain in right shoulder (06/21/19) Strain of unspecified muscle, fascia and tendon at shoulder and upper arm level, right arm, initial encounter (06/21/19) Physical Therapy Treatment Note PT-OP-A Visit Information Start: 02/02/19 08:51 Freq: Status: Active Protocol: Document 06/21/19 13:45 AMB (Rec: 06/22/19 07:28 AMB [email or web address]) Out-Patient Physical Therapy Visit Information Visit Information Visit Type Treatment Note Visit Start Time 13:45 Visit Stop Time 14:30 Total Visit Minutes 45 Visit Number 28 Number of AIR FORCE PILOT Visits 0 PT-OP-B Current Condition Start: 02/02/19 08:51 Freq: Status: Active Protocol: Document 02/02/19 09:00 AMB (Rec: 02/06/19 10:47 AMB [email or web address]) Current Condition History of Current Condition Onset Date a few months ago Current Complaints R shoulder pain History of Current Condition Chrissy was moving a laundry cart at work and the wheel got caught and her right shoulder was adducted and she felt suddent onset pain. She thought it would go away with time but has been getting worse. 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 She has been noticing clicking in the shoulder that has just started. The pain is worse with overhead movements and is located in the posterior aspect of the glenohumeral joint. She does have a previous back surgery history and has noticed a return of back pain in the last month first thing in the morning and when she is done with work. She has also noticed a pulling in her left foot for the past 3-4 months. Treatment Goals Patient/Caregiver Goals Reduce shoulder pain so she can work normally Prior Functional Status Baseline Function- ADL's Independent Baseline Function- Mobility Independent Current Functional Impairments (Reported) Functional Limitations- Work/School limited ability to push/pull, reach overhead, lift overhead Personal Factors Other Personal Factors That May Effect prior L5S1 discectomy Therapy/Recovery PT-OP-C Subjective Start: 02/02/19 08:51 Freq: Status: Active Protocol: Document 06/21/19 13:45 AMB (Rec: 06/22/19 07:28 AMB [email or web address]) OP-PT Subjective Patient Comments Patient Comments Pt reports shoulder is doing well, she is mostly concerned with shoulder abduction and pushing/ pulling above shoulder height as far as return to work at this point. PT-OP-J Posture/Palpation/Skin Start: 02/02/19 08:51 Freq: Status: Active Protocol: Document 02/02/19 09:00 AMB (Rec: 02/02/19 10:31 AMB [email or web address]) Posture Evaluation Comments Posture Comments mild forward shoulder posture in sitting PT-OP-K Range of Motion Start: 02/02/19 08:51 Freq: Status: Active Protocol: Document 05/05/19 10:06 AMB (Rec: 05/05/19 10:15 AMB [id number]) Shoulder Goniometric Range of Motion Shoulder Right Active Flexion 170 Abduction 132 Internal Rotation Behind Back (text) T5 PT-OP-L Special Tests Start: 02/02/19 08:51 Freq: Status: Active Protocol: Document 02/02/19 09:00 AMB (Rec: 02/02/19 10:31 AMB [email or web address]) Special Tests Shoulder Special Tests Acuna Yifan Impingement Test Results negative Neer Impingement Test Results positive Lift-Off Rotator Cuff Test Results positive PT-OP-M Strength Start: 02/02/19 08:51 Freq: Status: Active Protocol: Document 05/05/19 10:06 AMB (Rec: 05/05/19 10:15 AMB [id number]) Shoulder Strength Shoulder Manual Muscle Testing Right Flexion 4 Good Extension 4+ Good+ Abduction (C5) 4 Good External Rotation 4+ Good+ Internal Rotation 5 Normal PT-OP-Q Treatments Start: 02/02/19 08:51 Freq: Status: Active Protocol: Document 06/21/19 13:45 AMB (Rec: 06/22/19 07:28 AMB [email or web address]) Therapeutic Exercises Prone Exercises 1 Prone Exercise Name I, Y, T Resistance 3# Comments 2x10 ea Standing Exercises 5 Standing Exercise Name shoulder extension Side right Resistance #3 t band Reps/Minutes 2x10 Comments cued scap stab 4 Standing Exercise Name shoulder IR Resistance #3 t band Reps/Minutes 2x10 Comments good control 2 Standing Exercise Name shoulder ER AROM Resistance #3 tband Reps/Minutes 2x10 Comments cued scap stab- 1 Standing Exercise Name HABD Side right Resistance #2 TB Reps/Minutes 2x10 Comments cued chest lift, scap depression stability Manual Therapy Treatment Joint Mobilizations 1 Joint GH jt post/inferior glides Grade III Body Position Supine Taping 1 Body Location R GH Type of Tape Kinesio Tape Comments 1 Y for superior support, I for scapular retraction Other Other Manual Treatments alternating isometrics in supine with arm in 120 degrees flexion PT-OP-R Modalities Start: 02/02/19 08:51 Freq: Status: Active Protocol: Document 02/10/19 10:30 AMB (Rec: 02/10/19 11:31 AMB [email or web address]) Hot Pack/Cold Pack Treatment Cold Pack Location R GH Patient Position Hooklying Treatment Duration (minutes) 10 PT-OP-T Assessment and Plan Start: 02/02/19 08:51 Freq: Status: Active Protocol: Document 06/21/19 13:45 AMB (Rec: 06/22/19 07:28 AMB [email or web address]) Physical Therapy Assessment Assessment Summary Assessment Pt tolerated exercises well today, some soreness with overhead isometrics. Physical Therapy Plan Next Visit Focus/Plan Next Note Type Treatment Note Next Visit Plan Continue to progress strengthening, pt continues to be most limited with exercises at shoulder level or above.
--- NOTE | 2019-06-28 15:19 | PT.OTN ---
Current Diagnoses Pain in right shoulder (06/28/19) Strain of unspecified muscle, fascia and tendon at shoulder and upper arm level, right arm, initial encounter (06/28/19) Physical Therapy Treatment Note PT-OP-A Visit Information Start: 02/02/19 08:51 Freq: Status: Active Protocol: Document 06/28/19 14:36 EG (Rec: 06/28/19 15:08 EG [email or web address]) Out-Patient Physical Therapy Visit Information Visit Information Visit Type Treatment Note Visit Start Time 13:50 Visit Stop Time 14:30 Total Visit Minutes 40 Visit Number 29 Number of CHILD CARE EDUCATION COORDINATOR Visits 0 PT-OP-B Current Condition Start: 02/02/19 08:51 Freq: Status: Active Protocol: Document 02/02/19 09:00 AMB (Rec: 02/06/19 10:47 AMB [email or web address]) Current Condition History of Current Condition Onset Date a few months ago Current Complaints R shoulder pain History of Current Condition Chrissy was moving a laundry cart at work and the wheel got caught and her right shoulder was adducted and she felt suddent onset pain. She thought it would go away with time but has been getting worse. 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 She has been noticing clicking in the shoulder that has just started. The pain is worse with overhead movements and is located in the posterior aspect of the glenohumeral joint. She does have a previous back surgery history and has noticed a return of back pain in the last month first thing in the morning and when she is done with work. She has also noticed a pulling in her left foot for the past 3-4 months. Treatment Goals Patient/Caregiver Goals Reduce shoulder pain so she can work normally Prior Functional Status Baseline Function- ADL's Independent Baseline Function- Mobility Independent Current Functional Impairments (Reported) Functional Limitations- Work/School limited ability to push/pull, reach overhead, lift overhead Personal Factors Other Personal Factors That May Effect prior L5S1 discectomy Therapy/Recovery PT-OP-C Subjective Start: 02/02/19 08:51 Freq: Status: Active Protocol: Document 06/28/19 14:36 EG (Rec: 06/28/19 15:08 EG [email or web address]) OP-PT Subjective Patient Comments Patient Comments Patient reports that she has been doing okay - she still has a lingering cold and had to deal with her and her son being exposed to lice. She had to do a lot of overhead movements with her arms when looking for the lice in her hair and that was tiring for her. She reports that she has been doing her HEP and that has been going well. PT-OP-J Posture/Palpation/Skin Start: 02/02/19 08:51 Freq: Status: Active Protocol: Document 02/02/19 09:00 AMB (Rec: 02/02/19 10:31 AMB [email or web address]) Posture Evaluation Comments Posture Comments mild forward shoulder posture in sitting PT-OP-K Range of Motion Start: 02/02/19 08:51 Freq: Status: Active Protocol: Document 05/05/19 10:06 AMB (Rec: 05/05/19 10:15 AMB [id number]) Shoulder Goniometric Range of Motion Shoulder Right Active Flexion 170 Abduction 132 Internal Rotation Behind Back (text) T5 PT-OP-L Special Tests Start: 02/02/19 08:51 Freq: Status: Active Protocol: Document 02/02/19 09:00 AMB (Rec: 02/02/19 10:31 AMB [email or web address]) Special Tests Shoulder Special Tests Acuna Yifan Impingement Test Results negative Neer Impingement Test Results positive Lift-Off Rotator Cuff Test Results positive PT-OP-M Strength Start: 02/02/19 08:51 Freq: Status: Active Protocol: Document 05/05/19 10:06 AMB (Rec: 05/05/19 10:15 AMB [id number]) Shoulder Strength Shoulder Manual Muscle Testing Right Flexion 4 Good Extension 4+ Good+ Abduction (C5) 4 Good External Rotation 4+ Good+ Internal Rotation 5 Normal PT-OP-Q Treatments Start: 02/02/19 08:51 Freq: Status: Active Protocol: Document 06/28/19 14:36 EG (Rec: 06/28/19 15:08 EG [email or web address]) Therapeutic Exercises Prone Exercises Quadraped alternating arm lifts Prone Exercise Name Quadraped/Child's pose with alternating arms lifts Side bilateral Reps/Minutes 10x each Comments weight bearing on alternating R and L arm 1 Prone Exercise Name I, Y, T Resistance 2# Comments 15 ea Standing Exercises 8 Standing Exercise Name Weighted ball on wall with elbow extended Side right Resistance 2.2# ball Equipment Used weighted ball Reps/Minutes 2x[address] Comments small clockwise circles, small counter clockwise, small up and down Scaption Standing Exercise Name Scaption Side bilateral Resistance 1# Equipment Used dumbbell Reps/Minutes 2x10 Comments had to stick with 1# weight due to fatigue 4 Standing Exercise Name shoulder IR Resistance #3 t band Reps/Minutes 2x10 Comments good control 3 Standing Exercise Name TB rows Side bilateral Resistance number two Equipment Used theraband Reps/Minutes 2x10 Comments emphasis on scapular strenthening 2 Standing Exercise Name shoulder ER AROM Resistance #3 tband Reps/Minutes 2x10 Comments cued scap stab- 1 Standing Exercise Name Biceps Curls/Triceps Extension Side bilateral Resistance 5#/3# Reps/Minutes 2x15 Manual Therapy Treatment Joint Mobilizations GHJ ROM Joint GHJ Direction Flexion,Abduction, ER, IR Body Position Supine Reps/Duration 30 seconds each direction Comments Slight irritation at about 120 degrees abduction 1 Joint GH jt post/inferior glides Grade III Body Position Supine Taping 1 Body Location R GH Type of Tape Kinesio Tape Comments 1 Y for superior support, I for scapular retraction PT-OP-R Modalities Start: 02/02/19 08:51 Freq: Status: Active Protocol: Document 02/10/19 10:30 AMB (Rec: 02/10/19 11:31 AMB [email or web address]) Hot Pack/Cold Pack Treatment Cold Pack Location R GH Patient Position Hooklying Treatment Duration (minutes) 10 PT-OP-T Assessment and Plan Start: 02/02/19 08:51 Freq: Status: Active Protocol: Document 06/28/19 14:36 EG (Rec: 06/28/19 15:08 EG [email or web address]) Physical Therapy Assessment Assessment Summary Assessment Patient tolerated treatment well this afternoon but did feel increased tension on shoulder during small controlled movements with increased resistance. Patient should continue with ue strength training including biceps, triceps, and postural musculature to increase stabilization during functional dynamic movements at home including small overhead movements when doing her hair or playing with her child. Physical Therapy Plan Next Visit Focus/Plan Next Visit Plan Continue postural musculature strengthening. Revamp HEP.
--- NOTE | 2019-07-22 15:49 | PT.OTN ---
Current Diagnoses Pain in right shoulder (07/22/19) Strain of unspecified muscle, fascia and tendon at shoulder and upper arm level, right arm, initial encounter (07/22/19) Physical Therapy Treatment Note PT-OP-A Visit Information Start: 02/02/19 08:51 Freq: Status: Active Protocol: Document 07/22/19 13:00 AMB (Rec: 07/22/19 14:29 AMB [id number]) Out-Patient Physical Therapy Visit Information Visit Information Visit Type Progress Note Visit Start Time 13:00 Visit Stop Time 13:45 Total Visit Minutes 45 Visit Number 30 PT-OP-B Current Condition Start: 02/02/19 08:51 Freq: Status: Active Protocol: Document 02/02/19 09:00 AMB (Rec: 02/06/19 10:47 AMB [email or web address]) Current Condition History of Current Condition Onset Date a few months ago Current Complaints R shoulder pain History of Current Condition Chrissy was moving a laundry cart at work and the wheel got caught and her right shoulder was adducted and she felt suddent onset pain. She thought it would go away with time but has been getting worse. 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 She has been noticing clicking in the shoulder that has just started. The pain is worse with overhead movements and is located in the posterior aspect of the glenohumeral joint. She does have a previous back surgery history and has noticed a return of back pain in the last month first thing in the morning and when she is done with work. She has also noticed a pulling in her left foot for the past 3-4 months. Treatment Goals Patient/Caregiver Goals Reduce shoulder pain so she can work normally Prior Functional Status Baseline Function- ADL's Independent Baseline Function- Mobility Independent Current Functional Impairments (Reported) Functional Limitations- Work/School limited ability to push/pull, reach overhead, lift overhead Personal Factors Other Personal Factors That May Effect prior L5S1 discectomy Therapy/Recovery PT-OP-C Subjective Start: 02/02/19 08:51 Freq: Status: Active Protocol: Document 07/22/19 13:00 AMB (Rec: 07/22/19 14:29 AMB [id number]) OP-PT Subjective Patient Comments Patient Comments Pt reports both she and her son have been sick and that is why she had to cancel a bit. She has been busy babysitting , and hasn't been as good with her exercises lately. She is seeing a new ortho surgeon in a few weeks. PT-OP-J Posture/Palpation/Skin Start: 02/02/19 08:51 Freq: Status: Active Protocol: Document 02/02/19 09:00 AMB (Rec: 02/02/19 10:31 AMB [email or web address]) Posture Evaluation Comments Posture Comments mild forward shoulder posture in sitting PT-OP-K Range of Motion Start: 02/02/19 08:51 Freq: Status: Active Protocol: Document 07/22/19 13:00 AMB (Rec: 07/22/19 13:14 AMB [id number]) Shoulder Goniometric Range of Motion Shoulder Right Active Flexion 160 Abduction 157 Internal Rotation Behind Back (text) T5 PT-OP-L Special Tests Start: 02/02/19 08:51 Freq: Status: Active Protocol: Document 02/02/19 09:00 AMB (Rec: 02/02/19 10:31 AMB [email or web address]) Special Tests Shoulder Special Tests Acuna Yifan Impingement Test Results negative Neer Impingement Test Results positive Lift-Off Rotator Cuff Test Results positive PT-OP-M Strength Start: 02/02/19 08:51 Freq: Status: Active Protocol: Document 07/22/19 13:00 AMB (Rec: 07/22/19 13:14 AMB [id number]) Shoulder Strength Shoulder Manual Muscle Testing Right Flexion 4+ Good+ Extension 4+ Good+ Abduction (C5) 4+ Good+ External Rotation 4+ Good+ Internal Rotation 5 Normal PT-OP-Q Treatments Start: 02/02/19 08:51 Freq: Status: Active Protocol: Document 07/22/19 13:00 AMB (Rec: 07/22/19 14:29 AMB [id number]) Therapeutic Exercises Supine Exercises 1 Supine Exercise Name serratus punch Reps/Minutes 5#, 2x10 Sitting Exercises 1 Sitting Exercise Name UT stretch Reps/Minutes 30x2 Standing Exercises Scaption Standing Exercise Name Scaption Side bilateral Resistance 2# Equipment Used dumbbell Reps/Minutes 2x10 3 Standing Exercise Name TB shoulder extension Resistance #3 Reps/Minutes 2x10 2 Standing Exercise Name shoulder ER Resistance #3 tband Reps/Minutes 2x10 1 Standing Exercise Name Biceps Curls Side bilateral Resistance 5# Reps/Minutes 3x15 Comments sup, neutral, pron Manual Therapy Treatment Joint Mobilizations 1 Joint GH jt post/inferior glides Grade III Body Position Supine Taping 1 Body Location R GH Type of Tape Kinesio Tape Comments 1 Y for superior support, I for scapular retraction PT-OP-R Modalities Start: 02/02/19 08:51 Freq: Status: Active Protocol: Document 02/10/19 10:30 AMB (Rec: 02/10/19 11:31 AMB [email or web address]) Hot Pack/Cold Pack Treatment Cold Pack Location R GH Patient Position Hooklying Treatment Duration (minutes) 10 PT-OP-T Assessment and Plan Start: 02/02/19 08:51 Freq: Status: Active Protocol: Document 07/22/19 13:00 AMB (Rec: 07/22/19 15:42 AMB [id number]) Physical Therapy Assessment Goals Three Impairment pain Residential Goal (LTG) Chrissy will be able to work 4 hours with 3/10 pain or less. 2: Pt has been able to feel her shoulder when doing overhead activities like washing her bathroom mirror, she has not returned to work yet. LTG Duration 8 weeks Two Impairment strength Short Term Goal (STG) Chrissy will increase her strength to 5/5 in all planes. 07/22: improvement made: weakness remains in flexion and external rotation STG Duration 4 weeks Veneer Jointer Operator Goal (LTG) Chrissy will lift 20 pounds to shoulder height without an increase in baseline pain. LTG Duration 8 weeks One Impairment ROM Short Term Goal (STG) Chrissy will increase abduction AROM to 170 degrees without pain. PROGRESS MADE: good progress 157 Assessment Summary Assessment Chrissy has not been seen in 3 weeks because both she and her son were sick. She states she has not been as good as usual in regards to doing her HEP over this time. She continues to have weakness in flexion and external rotation, with pain with overhead movements, but she has shown excellent improvement in her range of motion. 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 Physical Therapy Plan Frequency and Duration Frequency of Treatment 2x/Week Duration of Treatment 6 weeks Plan of Care Start Date 07/22/19 Plan of Care End Date 09/02/19 Therapeutic Interventions Therapeutic Interventions Aquatic Therapy,Home Exercise Program,Joint Mobilizations, Manual Therapy,Neuromuscular Re-education,Self-Care/Home Management,Therapeutic Activities,Therapeutic Exercises Modalities Cold Pack/Ice Massage,Electric Stimulation,Ultrasound Next Visit Focus/Plan Next Note Type Treatment Note Next Visit Plan Reassess HEP, continue strengthening but push resistance, reps, working into shoulder height as tolerated.
--- NOTE | 2019-07-22 15:49 | PT.OPPOC ---
Physical, Occupational & Speech Therapy At [facility] Current Diagnoses Pain in right shoulder (07/22/19) Strain of unspecified muscle, fascia and tendon at shoulder and upper arm level, right arm, initial encounter (07/22/19) Visit Care Team Role Provider Type Kirk Holland MD Attending Provider Physician Primary Care Provider Specialty: [facility] Address: [address] [place] [address], [facility] [place], [place], [facility] Email: [email or web address] Plan Of Care PT-OP-T Assessment and Plan Start: 02/02/19 08:51 Freq: Status: Active Protocol: Document 07/22/19 13:00 AMB (Rec: 07/22/19 15:42 AMB [id number]) Physical Therapy Assessment Goals Three Impairment pain Mcc Goal (LTG) Chrissy will be able to work 4 hours with 3/10 pain or less. 07/22: Pt has been able to feel her shoulder when doing overhead activities like washing her bathroom mirror, she has not returned to work yet. LTG Duration 8 weeks Two Impairment strength Short Term Goal (STG) Chrissy will increase her strength to 5/5 in all planes. 07/22: improvement made: weakness remains in flexion and external rotation STG Duration 4 weeks Packaging Clerk Goal (LTG) Chrissy will lift 20 pounds to shoulder height without an increase in baseline pain. LTG Duration 8 weeks One Impairment ROM Short Term Goal (STG) Chrissy will increase abduction AROM to 170 degrees without pain. PROGRESS MADE: good progress 157 Assessment Summary Assessment Chrissy has not been seen in 3 weeks because both she and her son were sick. She states she has not been as good as usual in regards to doing her HEP over this time. She continues to have weakness in flexion and external rotation, with pain with overhead movements, but she has shown excellent improvement in her range of motion. 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 Physical Therapy Plan Frequency and Duration Frequency of Treatment 2x/Week Duration of Treatment 6 weeks Plan of Care Start Date 07/22/19 Plan of Care End Date 09/02/19 Therapeutic Interventions Therapeutic Interventions Aquatic Therapy,Home Exercise Program,Joint Mobilizations, Manual Therapy,Neuromuscular Re-education,Self-Care/Home Management,Therapeutic Activities,Therapeutic Exercises Modalities Cold Pack/Ice Massage,Electric Stimulation,Ultrasound Next Visit Focus/Plan Next Note Type Treatment Note Next Visit Plan Reassess HEP, continue strengthening but push resistance, reps, working into shoulder height as tolerated. Plan of Care Dates Plan of Care Start Date 05/05/19 Plan of Care End Date 06/30/19 Electronically Signed by: Georgina Rhodes, PT 07/22/19 [id number] Please Sign and Return: I have reviewed this Plan of Care and certify that the skilled therapy services above are required to meet the patient?s needs. Physician Signature Date Printed Name and Credentials Clinical Instructor Signature Printed Name and Credentials
--- NOTE | 2019-07-29 15:18 | PT.OTN ---
Current Diagnoses Pain in right shoulder (07/29/19) Strain of unspecified muscle, fascia and tendon at shoulder and upper arm level, right arm, initial encounter (07/29/19) Physical Therapy Treatment Note PT-OP-A Visit Information Start: 02/02/19 08:51 Freq: Status: Active Protocol: Document 07/29/19 14:34 SP (Rec: 07/29/19 15:35 SP [id number]) Out-Patient Physical Therapy Visit Information Visit Information Visit Type Treatment Note Visit Start Time 14:38 Visit Stop Time 15:18 Total Visit Minutes 40 Visit Number 31 Number of ENERGY BROKER Visits 1 PT-OP-B Current Condition Start: 02/02/19 08:51 Freq: Status: Active Protocol: Document 02/02/19 09:00 AMB (Rec: 02/06/19 10:47 AMB [email or web address]) Current Condition History of Current Condition Onset Date a few months ago Current Complaints R shoulder pain History of Current Condition Chrissy was moving a laundry cart at work and the wheel got caught and her right shoulder was adducted and she felt suddent onset pain. She thought it would go away with time but has been getting worse. 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 She has been noticing clicking in the shoulder that has just started. The pain is worse with overhead movements and is located in the posterior aspect of the glenohumeral joint. She does have a previous back surgery history and has noticed a return of back pain in the last month first thing in the morning and when she is done with work. She has also noticed a pulling in her left foot for the past 3-4 months. Treatment Goals Patient/Caregiver Goals Reduce shoulder pain so she can work normally Prior Functional Status Baseline Function- ADL's Independent Baseline Function- Mobility Independent Current Functional Impairments (Reported) Functional Limitations- Work/School limited ability to push/pull, reach overhead, lift overhead Personal Factors Other Personal Factors That May Effect prior L5S1 discectomy Therapy/Recovery PT-OP-C Subjective Start: 02/02/19 08:51 Freq: Status: Active Protocol: Document 07/29/19 14:34 SP (Rec: 07/29/19 15:35 SP [id number]) OP-PT Subjective Patient Comments Patient Comments Pt reported compliant with HEP and feels doing better. Is starting with [employer], hoping will get a job soon. PT-OP-J Posture/Palpation/Skin Start: 02/02/19 08:51 Freq: Status: Active Protocol: Document 02/02/19 09:00 AMB (Rec: 02/02/19 10:31 AMB [email or web address]) Posture Evaluation Comments Posture Comments mild forward shoulder posture in sitting PT-OP-K Range of Motion Start: 02/02/19 08:51 Freq: Status: Active Protocol: Document 07/22/19 13:00 AMB (Rec: 07/22/19 13:14 AMB [id number]) Shoulder Goniometric Range of Motion Shoulder Right Active Flexion 160 Abduction 157 Internal Rotation Behind Back (text) T5 PT-OP-L Special Tests Start: 02/02/19 08:51 Freq: Status: Active Protocol: Document 02/02/19 09:00 AMB (Rec: 02/02/19 10:31 AMB [email or web address]) Special Tests Shoulder Special Tests Acuna Yifan Impingement Test Results negative Neer Impingement Test Results positive Lift-Off Rotator Cuff Test Results positive PT-OP-M Strength Start: 02/02/19 08:51 Freq: Status: Active Protocol: Document 07/22/19 13:00 AMB (Rec: 07/22/19 13:14 AMB [id number]) Shoulder Strength Shoulder Manual Muscle Testing Right Flexion 4+ Good+ Extension 4+ Good+ Abduction (C5) 4+ Good+ External Rotation 4+ Good+ Internal Rotation 5 Normal PT-OP-Q Treatments Start: 02/02/19 08:51 Freq: Status: Active Protocol: Document 07/29/19 14:34 SP (Rec: 07/29/19 15:35 SP [id number]) Therapeutic Exercises Supine Exercises 1 Supine Exercise Name serratus punch Reps/Minutes 5#, 2x10 Prone Exercises Elbow plank Prone Exercise Name modified elbow forward/ side plank off knees Side bilateral Reps/Minutes 30 x2 each direction Comments cued for proper alignment HABD T Resistance 2# DB Reps/Minutes 2x10 Sidelying Exercises 2 Sidelying Exercise Name R ABD Side right Resistance #2 Reps/Minutes 2x10 Comments able to do full range, cued slow pacing little irritation but tolerable Standing Exercises tricep ext TB Resistance TB #3 Reps/Minutes 3x15 Comments B together Scaption Standing Exercise Name Scaption (single arm) Side bilateral Resistance 2# Equipment Used dumbbell, mirror Reps/Minutes 2x10 Comments Mirror used for level shld and cued neutral CS 3 Standing Exercise Name TB shoulder extension Resistance #3 Equipment Used TB Reps/Minutes 2x10 2 Standing Exercise Name shoulder ER Resistance #3 tband Reps/Minutes 2x10 1 Standing Exercise Name bicep 8# DB Resistance #8 sup & neutral, #5 pron Reps/Minutes 3x15 PT-OP-R Modalities Start: 02/02/19 08:51 Freq: Status: Active Protocol: Document 02/10/19 10:30 AMB (Rec: 02/10/19 11:31 AMB [email or web address]) Hot Pack/Cold Pack Treatment Cold Pack Location R GH Patient Position Hooklying Treatment Duration (minutes) 10 PT-OP-T Assessment and Plan Start: 02/02/19 08:51 Freq: Status: Active Protocol: Document 07/29/19 14:34 SP (Rec: 07/29/19 15:35 SP [id number]) Physical Therapy Assessment Goals Three Impairment pain Buffing Line Set Up Worker Goal (LTG) Chrissy will be able to work 4 hours with 3/10 pain or less. 2/7: Pt has been able to feel her shoulder when doing overhead activities like washing her bathroom mirror, she has not returned to work yet. LTG Duration 8 weeks Two Impairment strength Short Term Goal (STG) Chrissy will increase her strength to 5/5 in all planes. 2: improvement made: weakness remains in flexion and external rotation STG Duration 4 weeks Buffing Line Set Up Worker Goal (LTG) Chrissy will lift 20 pounds to shoulder height without an increase in baseline pain. LTG Duration 8 weeks One Impairment ROM Short Term Goal (STG) Chrissy will increase abduction AROM to 170 degrees without pain. PROGRESS MADE: good progress 157. Assessment Summary Assessment Pt stated is progressing in strength, compliant with HEP and likes all the exercises given and performing each at different times throughout the day. Pt stated plank shld taps were painful can tolerat 2 reps (ENERGY BROKER stated stop those for now) but tolerated stationary elbow planks forward and on side off knees added today, cued scap stab and neutral CS to allow for decreased shld elevation compensations. Responded well end of tx The exercises actually make the R shld feel more loosened up and stable after the exercises. Physical Therapy Plan Frequency and Duration Frequency of Treatment 2x/Week Duration of Treatment 6 weeks Plan of Care Start Date 07/22/19 Plan of Care End Date 09/02/19 Therapeutic Interventions Therapeutic Interventions Aquatic Therapy,Home Exercise Program,Joint Mobilizations, Manual Therapy,Neuromuscular Re-education,Self-Care/Home Management,Therapeutic Activities,Therapeutic Exercises Modalities Cold Pack/Ice Massage,Electric Stimulation,Ultrasound Next Visit Focus/Plan Next Note Type Treatment Note Next Visit Plan Reassess added side abd 2# full range, elbow plank f/s along with other HEP with increased weight. Continue per PT POC: continue strengthening but push resistance, reps, working into shoulder height as tolerated.
--- NOTE | 2019-08-11 16:12 | PT.OTN ---
Current Diagnoses Pain in right shoulder (08/11/19) Strain of unspecified muscle, fascia and tendon at shoulder and upper arm level, right arm, initial encounter (08/11/19) Physical Therapy Treatment Note PT-OP-A Visit Information Start: 02/02/19 08:51 Freq: Status: Active Protocol: Document 08/11/19 14:33 EG (Rec: 08/11/19 15:29 EG [id number]) Out-Patient Physical Therapy Visit Information Visit Information Visit Type Treatment Note Visit Start Time 14:33 Visit Stop Time 15:15 Total Visit Minutes 42 Visit Number 32 Number of STORE STOCK ASSOCIATE Visits 0 PT-OP-B Current Condition Start: 02/02/19 08:51 Freq: Status: Active Protocol: Document 02/02/19 09:00 AMB (Rec: 02/06/19 10:47 AMB [email or web address]) Current Condition History of Current Condition Onset Date a few months ago Current Complaints R shoulder pain History of Current Condition Chrissy was moving a laundry cart at work and the wheel got caught and her right shoulder was adducted and she felt suddent onset pain. She thought it would go away with time but has been getting worse. 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 She has been noticing clicking in the shoulder that has just started. The pain is worse with overhead movements and is located in the posterior aspect of the glenohumeral joint. She does have a previous back surgery history and has noticed a return of back pain in the last month first thing in the morning and when she is done with work. She has also noticed a pulling in her left foot for the past 3-4 months. Treatment Goals Patient/Caregiver Goals Reduce shoulder pain so she can work normally Prior Functional Status Baseline Function- ADL's Independent Baseline Function- Mobility Independent Current Functional Impairments (Reported) Functional Limitations- Work/School limited ability to push/pull, reach overhead, lift overhead Personal Factors Other Personal Factors That May Effect prior L5S1 discectomy Therapy/Recovery PT-OP-C Subjective Start: 02/02/19 08:51 Freq: Status: Active Protocol: Document 08/11/19 14:33 EG (Rec: 08/11/19 15:29 EG [id number]) OP-PT Subjective Patient Comments Patient Comments Patient reported that he went to Dr. Trevizo and he said that he has 2 tears in the rotator cuff/labrum (pt didn't know) and she is considering surgery . She also got a shot for her shoulder when she went there. Patient reported 2 days of extreme pain, 2 days of amazingness, and now she is feeling a little bit of pain but a little better. Patient got the shot on the . She could still feel a click but no click and pain. Patient able to clean the house but a little sore afterwards. PT-OP-J Posture/Palpation/Skin Start: 02/02/19 08:51 Freq: Status: Active Protocol: Document 02/02/19 09:00 AMB (Rec: 02/02/19 10:31 AMB [email or web address]) Posture Evaluation Comments Posture Comments mild forward shoulder posture in sitting PT-OP-K Range of Motion Start: 02/02/19 08:51 Freq: Status: Active Protocol: Document 07/22/19 13:00 AMB (Rec: 07/22/19 13:14 AMB [id number]) Shoulder Goniometric Range of Motion Shoulder Right Active Flexion 160 Abduction 157 Internal Rotation Behind Back (text) T5 PT-OP-L Special Tests Start: 02/02/19 08:51 Freq: Status: Active Protocol: Document 02/02/19 09:00 AMB (Rec: 02/02/19 10:31 AMB [email or web address]) Special Tests Shoulder Special Tests Acuna Yifan Impingement Test Results negative Neer Impingement Test Results positive Lift-Off Rotator Cuff Test Results positive PT-OP-M Strength Start: 02/02/19 08:51 Freq: Status: Active Protocol: Document 07/22/19 13:00 AMB (Rec: 07/22/19 13:14 AMB [id number]) Shoulder Strength Shoulder Manual Muscle Testing Right Flexion 4+ Good+ Extension 4+ Good+ Abduction (C5) 4+ Good+ External Rotation 4+ Good+ Internal Rotation 5 Normal PT-OP-Q Treatments Start: 02/02/19 08:51 Freq: Status: Active Protocol: Document 08/11/19 14:33 EG (Rec: 08/11/19 15:29 EG [id number]) Cardio Equipment Upper Body Ergometer (UBE) Duration (Minutes) 6 RPM 60 Other 3 min fwd/bwd Therapeutic Exercises Prone Exercises Elbow plank Prone Exercise Name modified elbow forward/ side plank off knees Side bilateral Reps/Minutes 30 x2 each direction Comments cued for proper alignment 1 Prone Exercise Name Cobra Reps/Minutes 2x8 Comments cue for shoulders back and neck in neutral Sidelying Exercises 1 Sidelying Exercise Name Open Books Side bilateral Reps/Minutes 10x each way Standing Exercises tricep ext TB Standing Exercise Name Standing triceps extension Resistance TB #3 Reps/Minutes 3x15 Comments B together Scaption Standing Exercise Name Scaption Side bilateral Resistance 2# Equipment Used dumbbell Reps/Minutes 2x10 Comments Mirror used for level shld and cued neutral CS 7 Standing Exercise Name Biceps Curls Side bilateral Resistance 7# Equipment Used dumbbell Reps/Minutes 2x10 Comments alternate arms 3 Standing Exercise Name TB shoulder extension Resistance level 2 Equipment Used TB Reps/Minutes 2x10 2 Standing Exercise Name shoulder ER Resistance #3 tband Reps/Minutes 2x10 Comments level 4 for last 10 Manual Therapy Treatment Taping 1 Body Location R GH Type of Tape Kinesio Tape Comments 1 Y for superior support, I for scapular retraction PT-OP-R Modalities Start: 02/02/19 08:51 Freq: Status: Active Protocol: Document 02/10/19 10:30 AMB (Rec: 02/10/19 11:31 AMB [email or web address]) Hot Pack/Cold Pack Treatment Cold Pack Location R GH Patient Position Hooklying Treatment Duration (minutes) 10 PT-OP-T Assessment and Plan Start: 02/02/19 08:51 Freq: Status: Active Protocol: Document 08/11/19 14:33 EG (Rec: 08/11/19 15:29 EG [id number]) Physical Therapy Assessment Assessment Summary Assessment Patient tolerated treatment well today though could not do increased weight for shoulder scaption without increased pain in R shoulder. She is considering doing surgery for her R shoulder at this time but will continue to assess symptoms from the steroid shots before making any decisions. Patient has increased functional mobility and overall shoulder ROM significantly since starting PT and will continue to benefit from postural training and rotator cuff strengthening whether or not she decides to get the surgery . Physical Therapy Plan Frequency and Duration Frequency of Treatment 2x/Week Duration of Treatment 6 weeks Plan of Care Start Date 07/22/19 Plan of Care End Date 09/02/19 Next Visit Focus/Plan Next Note Type Treatment Note Next Visit Plan See where patient is with her thoughts considering surgery. continue strengthening but push resistance, reps, working into shoulder height as tolerated. IGeorgina, JACKIT, supervised all treatment performed by, and agreed with the plan of care, as performed by LILI Giron.
--- NOTE | 2019-08-17 10:59 | PT.OTN ---
Current Diagnoses Pain in right shoulder (08/17/19) Strain of unspecified muscle, fascia and tendon at shoulder and upper arm level, right arm, initial encounter (08/17/19) Physical Therapy Treatment Note PT-OP-A Visit Information Start: 02/02/19 08:51 Freq: Status: Active Protocol: Document 08/17/19 09:07 EG (Rec: 08/17/19 10:02 EG [id number]) Out-Patient Physical Therapy Visit Information Visit Information Visit Type Treatment Note Visit Start Time 09:07 Visit Stop Time 09:48 Total Visit Minutes 41 Visit Number 33 Number of WORKERS' COMPENSATION COMMISSIONER Visits 0 PT-OP-B Current Condition Start: 02/02/19 08:51 Freq: Status: Active Protocol: Document 02/02/19 09:00 AMB (Rec: 02/06/19 10:47 AMB [email or web address]) Current Condition History of Current Condition Onset Date a few months ago Current Complaints R shoulder pain History of Current Condition Chrissy was moving a laundry cart at work and the wheel got caught and her right shoulder was adducted and she felt suddent onset pain. She thought it would go away with time but has been getting worse. 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 She has been noticing clicking in the shoulder that has just started. The pain is worse with overhead movements and is located in the posterior aspect of the glenohumeral joint. She does have a previous back surgery history and has noticed a return of back pain in the last month first thing in the morning and when she is done with work. She has also noticed a pulling in her left foot for the past 3-4 months. Treatment Goals Patient/Caregiver Goals Reduce shoulder pain so she can work normally Prior Functional Status Baseline Function- ADL's Independent Baseline Function- Mobility Independent Current Functional Impairments (Reported) Functional Limitations- Work/School limited ability to push/pull, reach overhead, lift overhead Personal Factors Other Personal Factors That May Effect prior L5S1 discectomy Therapy/Recovery PT-OP-C Subjective Start: 02/02/19 08:51 Freq: Status: Active Protocol: Document 08/17/19 09:07 EG (Rec: 08/17/19 10:02 EG [id number]) OP-PT Subjective Patient Comments Patient Comments Patient reports that she was a little more painful lately because she feels like the injection has worn off. Patient reports that over the weekend she was feeling the shoulder again when stirring things she was cooking. Pain rating: uncomfortable - not painful/painful. PT-OP-J Posture/Palpation/Skin Start: 02/02/19 08:51 Freq: Status: Active Protocol: Document 02/02/19 09:00 AMB (Rec: 02/02/19 10:31 AMB [email or web address]) Posture Evaluation Comments Posture Comments mild forward shoulder posture in sitting PT-OP-K Range of Motion Start: 02/02/19 08:51 Freq: Status: Active Protocol: Document 07/22/19 13:00 AMB (Rec: 07/22/19 13:14 AMB [id number]) Shoulder Goniometric Range of Motion Shoulder Right Active Flexion 160 Abduction 157 Internal Rotation Behind Back (text) T5 PT-OP-L Special Tests Start: 02/02/19 08:51 Freq: Status: Active Protocol: Document 02/02/19 09:00 AMB (Rec: 02/02/19 10:31 AMB [email or web address]) Special Tests Shoulder Special Tests Acuna Yifan Impingement Test Results negative Neer Impingement Test Results positive Lift-Off Rotator Cuff Test Results positive PT-OP-M Strength Start: 02/02/19 08:51 Freq: Status: Active Protocol: Document 07/22/19 13:00 AMB (Rec: 07/22/19 13:14 AMB [id number]) Shoulder Strength Shoulder Manual Muscle Testing Right Flexion 4+ Good+ Extension 4+ Good+ Abduction (C5) 4+ Good+ External Rotation 4+ Good+ Internal Rotation 5 Normal PT-OP-Q Treatments Start: 02/02/19 08:51 Freq: Status: Active Protocol: Document 08/17/19 09:07 EG (Rec: 08/17/19 10:02 EG [id number]) Cardio Equipment Upper Body Ergometer (UBE) Duration (Minutes) 6 RPM 60 Other 3 min fwd/bwd Gym Equipment Cable Column (Body Solid) Lat Pulldown Details Lat Pulldown Resistance L3 Reps/Time 3x12 Rows Details Rows Resistance L3 Reps/Time 3x12 Therapeutic Exercises Supine Exercises 5 Supine Exercise Name Foam Roller - Pec Stretch Equipment Used Black Foam Roller Reps/Minutes 1 min 4 Supine Exercise Name Foam Roller: shoulder add/abd and alternating flexion Equipment Used Black Foam Roller Reps/Minutes 10x each way Comments stop ROM before pain Sidelying Exercises 1 Sidelying Exercise Name Open Books Side bilateral Reps/Minutes 10x each way Standing Exercises Body Blade Standing Exercise Name Body Blade - Vertical Reps/Minutes 1 min Comments Patient felt more pressure in shoulder 4 Standing Exercise Name D2 Flexion Resistance L2 Equipment Used TB Reps/Minutes 10x Comments Patient felt increased pressure in Shoulder 1 Standing Exercise Name Tricep Push up on wall Reps/Minutes 10x Manual Therapy Treatment Taping 1 Body Location R GH Type of Tape Kinesio Tape Comments 1 Y for superior support, I for scapular retraction PT-OP-R Modalities Start: 02/02/19 08:51 Freq: Status: Active Protocol: Document 02/10/19 10:30 AMB (Rec: 02/10/19 11:31 AMB [email or web address]) Hot Pack/Cold Pack Treatment Cold Pack Location R GH Patient Position Hooklying Treatment Duration (minutes) 10 PT-OP-T Assessment and Plan Start: 02/02/19 08:51 Freq: Status: Active Protocol: Document 08/17/19 09:07 EG (Rec: 08/17/19 10:02 EG [id number]) Physical Therapy Assessment Assessment Summary Assessment Patient did have increased symptoms with exercises today due to aggravation of the shoulder over the weekend. She is able to do more stabilization exercises such as the body blade but does still feel pressure in the shoulder. Continual ROM and scapular/Rotator cuff strengthening should be continued with work in to dynamic movements and variety of direction. She has pain with stirring food in pots and will benefit from stabilization exercises while moving in to circular rotations. Physical Therapy Plan Next Visit Focus/Plan Next Note Type Treatment Note Next Visit Plan Continue with ROM/Scapular and Rotator cuff strengthening of the L shoulder. Continue with stabilization exercises. Georgina Hendrickson, JACKIT, supervised all treatment performed by, and agreed with the plan of care, as performed by Lena Quiroga, LILI.
--- NOTE | 2019-08-24 09:45 | PT.OTN ---
Current Diagnoses Pain in right shoulder (08/24/19) Strain of unspecified muscle, fascia and tendon at shoulder and upper arm level, right arm, initial encounter (08/24/19) Physical Therapy Treatment Note PT-OP-A Visit Information Start: 02/02/19 08:51 Freq: Status: Active Protocol: Document 08/24/19 09:03 SP (Rec: 08/24/19 09:49 SP [id number]) Out-Patient Physical Therapy Visit Information Visit Information Visit Type Treatment Note Visit Start Time 09:03 Visit Stop Time 09:45 Total Visit Minutes 42 Visit Number 34 Number of SCREEN PRINTING PASTER Visits 1 PT-OP-B Current Condition Start: 02/02/19 08:51 Freq: Status: Active Protocol: Document 02/02/19 09:00 AMB (Rec: 02/06/19 10:47 AMB [id number]) Current Condition History of Current Condition Onset Date a few months ago Current Complaints R shoulder pain History of Current Condition Chrissy was moving a laundry cart at work and the wheel got caught and her right shoulder was adducted and she felt suddent onset pain. She thought it would go away with time but has been getting worse. 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 She has been noticing clicking in the shoulder that has just started. The pain is worse with overhead movements and is located in the posterior aspect of the glenohumeral joint. She does have a previous back surgery history and has noticed a return of back pain in the last month first thing in the morning and when she is done with work. She has also noticed a pulling in her left foot for the past 3-4 months. Treatment Goals Patient/Caregiver Goals Reduce shoulder pain so she can work normally Prior Functional Status Baseline Function- ADL's Independent Baseline Function- Mobility Independent Current Functional Impairments (Reported) Functional Limitations- Work/School limited ability to push/pull, reach overhead, lift overhead Personal Factors Other Personal Factors That May Effect prior L5S1 discectomy Therapy/Recovery PT-OP-C Subjective Start: 02/02/19 08:51 Freq: Status: Active Protocol: Document 08/24/19 09:03 SP (Rec: 08/24/19 09:49 SP [id number]) OP-PT Subjective Patient Comments Patient Comments Pt stated only clicking if reach out to side over head but once add weight then that' s when pain starts. PT-OP-J Posture/Palpation/Skin Start: 02/02/19 08:51 Freq: Status: Active Protocol: Document 02/02/19 09:00 AMB (Rec: 02/02/19 10:31 AMB [id number]) Posture Evaluation Comments Posture Comments mild forward shoulder posture in sitting PT-OP-K Range of Motion Start: 02/02/19 08:51 Freq: Status: Active Protocol: Document 07/22/19 13:00 AMB (Rec: 07/22/19 13:14 AMB [id number]) Shoulder Goniometric Range of Motion Shoulder Right Active Flexion 160 Abduction 157 Internal Rotation Behind Back (text) T5 PT-OP-L Special Tests Start: 02/02/19 08:51 Freq: Status: Active Protocol: Document 02/02/19 09:00 AMB (Rec: 02/02/19 10:31 AMB [email or web address]) Special Tests Shoulder Special Tests Acuna Yifan Impingement Test Results negative Neer Impingement Test Results positive Lift-Off Rotator Cuff Test Results positive PT-OP-M Strength Start: 02/02/19 08:51 Freq: Status: Active Protocol: Document 07/22/19 13:00 AMB (Rec: 07/22/19 13:14 AMB [id number]) Shoulder Strength Shoulder Manual Muscle Testing Right Flexion 4+ Good+ Extension 4+ Good+ Abduction (C5) 4+ Good+ External Rotation 4+ Good+ Internal Rotation 5 Normal PT-OP-Q Treatments Start: 02/02/19 08:51 Freq: Status: Active Protocol: Document 08/24/19 09:03 SP (Rec: 08/24/19 09:49 SP [id number]) Gym Equipment Cable Column (Body Solid) Lat Pulldown Details Lat Pulldown Resistance L3 Reps/Time 3x12 Rows Details Rows Resistance L3 Reps/Time 3x12 Therapeutic Exercises Standing Exercises OH punch Equipment Used 10# DB Reps/Minutes x5 Comments assess goal shld flexion Equipment Used 3# Reps/Minutes 2x5 Comments assess goals Body Blade Standing Exercise Name Body Blade 4 positions (front, OH, down, med/lat) Reps/Minutes 1 min ( 4 positions, 20 sec each) Comments Patient felt more pressure in shoulder 4 Standing Exercise Name D2 Flexion Resistance L2 Equipment Used TB Reps/Minutes 10x Comments Patient felt increased pressure/click but no pain in R Shoulder 2 Standing Exercise Name shoulder ER Resistance #4 tband Reps/Minutes 2x10 PT-OP-R Modalities Start: 02/02/19 08:51 Freq: Status: Active Protocol: Document 02/10/19 10:30 AMB (Rec: 02/10/19 11:31 AMB [email or web address]) Hot Pack/Cold Pack Treatment Cold Pack Location R GH Patient Position Hooklying Treatment Duration (minutes) 10 PT-OP-T Assessment and Plan Start: 02/02/19 08:51 Freq: Status: Active Protocol: Document 08/24/19 09:03 SP (Rec: 08/24/19 09:49 SP [id number]) Physical Therapy Assessment Goals Three Impairment pain Mcc Goal (LTG) Chrissy will be able to work 4 hours with 3/10 pain or less. 08/23: Pt has been able to feel clicking but not pain her shoulder when doing overhead activities like washing her bathroom mirror or D2 flexion Tb #2, she has not returned to work yet. LTG Duration 8 weeks Two Impairment strength Short Term Goal (STG) Chrissy will increase her strength to 5/5 in all planes. 08/23: improvement made: weakness remains in flexion and external rotation, able to complete FF 3# DB FF to OH unable 5#DB and punch 10 # OH. STG Duration 4 weeks Mcc Goal (LTG) Chrissy will lift 20 pounds to shoulder height without an increase in baseline pain. LTG Duration 8 weeks One Impairment ROM Short Term Goal (STG) Chrissy will increase abduction AROM to 170 degrees without pain. PROGRESS MADE 08/23: good progress 146* standing, 160* (improvement of 3 *) with report of numbness in fingers into range OH. Assessment Summary Assessment Pt reported clicking R shld but not painful during lat pulldown, noted GH jt instability cued scap stab awareness, CC and slow muscular control. Substituted hammer jostle for body blade for home application with positive feedback. No pain during tx today, good tiring response. Pt has ortho follow up next week, thursday and will reschedule next appt with PT Georgina for update POC and plan forward with R shld. Physical Therapy Plan Frequency and Duration Frequency of Treatment 2x/Week Duration of Treatment 6 weeks Plan of Care Start Date 07/22/19 Plan of Care End Date 09/02/19 Therapeutic Interventions Therapeutic Interventions Aquatic Therapy,Home Exercise Program,Joint Mobilizations, Manual Therapy,Neuromuscular Re-education,Self-Care/Home Management,Therapeutic Activities,Therapeutic Exercises Modalities Cold Pack/Ice Massage,Electric Stimulation,Ultrasound Next Visit Focus/Plan Next Note Type Treatment Note Next Visit Plan Update POC, feedback from orth appt for plan forward. Response to last tx and Continue with ROM/Scapular and Rotator cuff strengthening of the L shoulder. Continue with stabilization exercises.
--- NOTE | 2019-12-01 17:08 | PT.OTRE ---
Current Diagnoses Pain in right shoulder (12/01/19) Strain of unspecified muscle, fascia and tendon at shoulder and upper arm level, right arm, initial encounter (12/01/19) Surgical History Status post delivery (12/17/11) Status post loop electrosurgical excision procedure (LEEP) of cervix (11/25/13) Visit Care Team Role Provider Type Kirk Holland MD Attending Provider Physician Primary Care Provider Specialty: [facility] Address: [address] [place] [address], [facility] [place], [facility] Email: [email or web address] Physical Therapy Re-Evaluation PT-OP-A Visit Information Start: 02/02/19 08:51 Freq: Status: Active Protocol: Document 12/01/19 13:47 SAK (Rec: 12/01/19 14:33 SAK [id number]) Out-Patient Physical Therapy Visit Information Visit Information Visit Type Re-Evaluation Visit Start Time 13:45 Visit Stop Time 14:35 Total Visit Minutes 50 Visit Number 35 Number of CLAIMS COUNSEL Visits 0 PT-OP-B Current Condition Start: 02/02/19 08:51 Freq: Status: Active Protocol: Document 12/01/19 13:47 SAK (Rec: 12/01/19 17:08 SAK [id number]) Current Condition History of Current Condition Current Complaints R shoulder pain History of Current Condition Original injury: Chrissy was moving a laundry cart at work and the wheel got caught and her right shoulder was adducted and she felt suddent onset pain. She thought it would go away with time but has been getting worse. 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 She has been noticing clicking in the shoulder that has just started . The pain is worse with overhead movements and is located in the posterior aspect of the glenohumeral joint. She does have a previous back surgery history and has noticed a return of back pain in the last month first thing in the morning and when she is done with work. She has also noticed a pulling in her left foot for the past 3-4 months. Prior Treatments and Tests Underwent arthroscopic surgery right shoulder (no surgery details available; patient reports debreidment) 11/17/[address] Trevizo. Has been wearing sling, is to wean off of sling by 12/05/19; saw doctor for post-op follow-up yesterday. 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 Prior Functional Status Baseline Function- ADL's Independent Baseline Function- Mobility Independent Current Functional Impairments (Reported) Functional Limitations- ADL's severe currently s/p surgery, wearing sling. Patient is right hand dominant PT-OP-C Subjective Start: 02/02/19 08:51 Freq: Status: Active Protocol: Document 12/01/19 13:47 SAK (Rec: 12/01/19 14:33 [facility] [id number]) OP-PT Subjective Patient Comments Patient Comments Dr. Trevizo performed athroscopic repair right shoulder 11/17/19, now wearing a sling. Supposed to be out of sling by 12/05/19. Reports since surgery doing well, wearing sling consistently. Minimal pain or soreness until yesterday when did hair, sore today but not awful. No post-op protocol sent to PT, pt reports work restrictions extensive but didn't bring paper today. OP-PT Pain Assessment Pain Assessment Grid Paper Pain Assessment Grid Completed Yes Location Right Shoulder Pain Location Details posterior shoulder Intensity 6 Scale Used Numeric (0 - 10) PT-OP-J Posture/Palpation/Skin Start: 02/02/19 08:51 Freq: Status: Active Protocol: Document 12/01/19 13:47 SAK (Rec: 12/01/19 17:08 [facility] [id number]) Posture Evaluation Position Sitting Head/C-Spine Posture Forward Head Shoulder Posture (L) Rounded,(R) Rounded,(L) Forward,(R) Forward Skin Assessment Incisional Assessment Incision Appearance/Comments intact, well-healed arthroscopic incisions right shoulder, immature scars, decreased mobility. PT-OP-K Range of Motion Start: 02/02/19 08:51 Freq: Status: Active Protocol: Document 12/01/19 13:47 SAK (Rec: 12/01/19 17:08 [facility] [id number]) Cervical Spine Range of Motion Cervical Spine Active Comments WNL Shoulder Goniometric Range of Motion Shoulder Measured in Degrees Right Passive Testing Position Supine and sitting Flexion 158 Extension 20 Abduction 135 External Rotation at 45 degrees 75 Abduction Internal Rotation 67 Shoulder ROM Limitations Comments active not tested due to lack of shoulder restrictions or protocol from physician Elbow/Forearm Range of Motion Elbow/Forearm ROM Limitations Comments WNL Wrist Goniometric Range of Motion ROM Limitations Comments WNl PT-OP-L Special Tests Start: 02/02/19 08:51 Freq: Status: Active Protocol: Document 02/02/19 09:00 AMB (Rec: 02/02/19 10:31 AMB [email or web address]) Special Tests Shoulder Special Tests Acuna Yifan Impingement Test Results negative Neer Impingement Test Results positive Lift-Off Rotator Cuff Test Results positive PT-OP-M Strength Start: 02/02/19 08:51 Freq: Status: Active Protocol: Document 12/01/19 13:47 SAK (Rec: 12/01/19 17:08 SAK [id number]) Shoulder Strength Shoulder Manual Muscle Testing Right Comments deferred due to post-op Elbow/Forearm Strength Elbow and Forearm Manual Muscle Testing Right Comments has antigravity flexion Hand Advertising Account Executive/Pinch Strength Hand Dominance Hand Dominance Right PT-OP-Q Treatments Start: 02/02/19 08:51 Freq: Status: Active Protocol: Document 12/01/19 13:47 SAK (Rec: 12/01/19 17:08 SAK [id number]) Therapeutic Exercises Supine Exercises shoulder IR/ER Reps/Minutes 10x Comments passive, pain-free Rom shoulder flex Reps/Minutes 10x Comments passive, pain-free ROM Sitting Exercises table passive shoulder ER Reps/Minutes 10x table slide shoulder flex Reps/Minutes 10x hand, wrist, elbow AROM Reps/Minutes 10x scapular retraction Reps/Minutes 10x shoulder shrugs Reps/Minutes 10x Standing Exercises pendulum Reps/Minutes 10x each plane Self-Care/Home Management Treatment Education Patient Education Home Exercise Program,Pain Management,Posture Other Education written HEP PT-OP-R Modalities Start: 02/02/19 08:51 Freq: Status: Active Protocol: Document 12/01/19 13:47 SAK (Rec: 12/01/19 17:08 SAK [id number]) Hot Pack/Cold Pack Treatment Cold Pack Location R GH Patient Position Hooklying Treatment Duration (minutes) 10 PT-OP-T Assessment and Plan Start: 02/02/19 08:51 Freq: Status: Active Protocol: Document 12/01/19 13:47 SAK (Rec: 12/01/19 17:08 SAK [id number]) Physical Therapy Assessment Rehab Potential Rehabilitation Potential Good Impairments Impairments Pain,ROM,Strength Goals Three Impairment pain Jail Goal (LTG) Chrissy will be able to work 4 hours with 3/10 pain or less. 08/23: Pt has been able to feel clicking but not pain her shoulder when doing overhead activities like washing her bathroom mirror or D2 flexion Tb #2, she has not returned to work yet. 12/10/19 UPDATED POST-OP GOAL: pt. will be able to do all usual ADL's with pain no greater than 2/10 LTG Duration 02/29/20 Two Impairment strength Short Term Goal (STG) Chrissy will increase her strength to 5/5 in all planes. 08/23: improvement made: weakness remains in flexion and external rotation, able to complete FF 3# DB FF to OH unable 5#DB and punch 10 # OH. 11/30/19: UPDATED POST-OP GOAL pt will demonstrate 4/5 muscle strength all shoulder planes STG Duration 01/12/20 Jail Goal (LTG) Chrissy will lift 20 pounds to shoulder height without an increase in baseline pain. 11/30/19 UPDATED POST-OP GOAL: pt. will demonstrate 5/5 muscle strength all planes LTG Duration 02/29/20 One Impairment ROM Short Term Goal (STG) Chrissy will increase abduction AROM to 170 degrees without pain. PROGRESS MADE 08/23: good progress 146* standing, 160* (improvement of 3 *) with report of numbness in fingers into range OH. 11/30/19: POST-OP UPDATED GOAL pt. will be able to reach overhead and behind her back with full ROM with minimal to no pain Assessment Summary Assessment Chrissy returns to PT s/p right shoulder arthroscopic surgery, has been following recommendation for wearing sling. She would benefit from PT for post-op rehab to help her return to full functional ROM, strength, and function of her right shoulder so she can resume her previously active lifestyle and return to work. Physical Therapy Plan Frequency and Duration Frequency of Treatment 2x/Week Duration of Treatment 12 wks Plan of Care Start Date 12/01/19 Plan of Care End Date 02/29/20 Therapeutic Interventions Therapeutic Interventions Aquatic Therapy,Home Exercise Program,Joint Mobilizations, Manual Therapy,Neuromuscular Re-education,Self-Care/Home Management,Therapeutic Activities,Therapeutic Exercises Modalities Cold Pack/Ice Massage,Electric Stimulation,Ultrasound Next Visit Focus/Plan Next Note Type Treatment Note Next Visit Plan Progress ther ex as tolerated for right shoulder ROM and strengthening and per any restrictions or protocol received by physician (left message today requesting clarification.) Include postural retraining due to protective posturing, soft tissue mobilization as indicated for scar and muscle tension.
--- NOTE | 2019-12-01 17:08 | PT.OPPOC ---
Physical, Occupational & Speech Therapy At [facility] Current Diagnoses Pain in right shoulder (12/01/19) Strain of unspecified muscle, fascia and tendon at shoulder and upper arm level, right arm, initial encounter (12/01/19) Visit Care Team Role Provider Type Kirk Holland MD Attending Provider Physician Primary Care Provider Specialty: [facility] Address: [address] [place] [address], [facility] [place], [facility] Email: [email or web address] Plan Of Care PT-OP-T Assessment and Plan Start: 02/02/19 08:51 Freq: Status: Active Protocol: Document 12/01/19 13:47 SAK (Rec: 12/01/19 17:08 SAK [id number]) Physical Therapy Assessment Rehab Potential Rehabilitation Potential Good Impairments Impairments Pain,ROM,Strength Goals Three Impairment pain Halfway Goal (LTG) Chrissy will be able to work 4 hours with 3/10 pain or less. 08/23: Pt has been able to feel clicking but not pain her shoulder when doing overhead activities like washing her bathroom mirror or D2 flexion Tb #2, she has not returned to work yet. 12/10/19 UPDATED POST-OP GOAL: pt. will be able to do all usual ADL's with pain no greater than 2/10 LTG Duration 02/29/20 Two Impairment strength Short Term Goal (STG) Chrissy will increase her strength to 5/5 in all planes. 08/23: improvement made: weakness remains in flexion and external rotation, able to complete FF 3# DB FF to OH unable 5#DB and punch 10 # OH. 11/30/19: UPDATED POST-OP GOAL pt will demonstrate 4/5 muscle strength all shoulder planes STG Duration 01/12/20 Development Spec Goal (LTG) Chrissy will lift 20 pounds to shoulder height without an increase in baseline pain. 11/30/19 UPDATED POST-OP GOAL: pt. will demonstrate 5/5 muscle strength all planes LTG Duration 02/29/20 One Impairment ROM Short Term Goal (STG) Chrissy will increase abduction AROM to 170 degrees without pain. PROGRESS MADE 08/23: good progress 146* standing, 160* (improvement of 3 *) with report of numbness in fingers into range OH. 11/30/19: POST-OP UPDATED GOAL pt. will be able to reach overhead and behind her back with full ROM with minimal to no pain Assessment Summary Assessment Chrissy returns to PT s/p right shoulder arthroscopic surgery, has been following recommendation for wearing sling. She would benefit from PT for post-op rehab to help her return to full functional ROM, strength, and function of her right shoulder so she can resume her previously active lifestyle and return to work. Physical Therapy Plan Frequency and Duration Frequency of Treatment 2x/Week Duration of Treatment 12 wks Plan of Care Start Date 12/01/19 Plan of Care End Date 02/29/20 Therapeutic Interventions Therapeutic Interventions Aquatic Therapy,Home Exercise Program,Joint Mobilizations, Manual Therapy,Neuromuscular Re-education,Self-Care/Home Management,Therapeutic Activities,Therapeutic Exercises Modalities Cold Pack/Ice Massage,Electric Stimulation,Ultrasound Next Visit Focus/Plan Next Note Type Treatment Note Next Visit Plan Progress ther ex as tolerated for right shoulder ROM and strengthening and per any restrictions or protocol received by physician (left message today requesting clarification.) Include postural retraining due to protective posturing, soft tissue mobilization as indicated for scar and muscle tension. Plan of Care Dates Plan of Care Start Date 12/01/19 Plan of Care End Date 02/29/20 Electronically Signed by: Jenna Kinsey, PT 12/01/19 [id number] Please Sign and Return: I have reviewed this Plan of Care and certify that the skilled therapy services above are required to meet the patient?s needs. Physician Signature Date Printed Name and Credentials Clinical Instructor Signature Printed Name and Credentials
--- NOTE | 2019-12-13 09:45 | PT.OTN ---
Current Diagnoses Pain in right shoulder (12/13/19) Strain of unspecified muscle, fascia and tendon at shoulder and upper arm level, right arm, initial encounter (12/13/19) Physical Therapy Treatment Note PT-OP-A Visit Information Start: 02/02/19 08:51 Freq: Status: Active Protocol: Document 12/13/19 09:03 MB (Rec: 12/13/19 09:45 MB [id number]) Out-Patient Physical Therapy Visit Information Visit Information Visit Type Treatment Note Visit Start Time 09:03 Visit Stop Time 09:45 Total Visit Minutes 42 Visit Number 36 PT-OP-B Current Condition Start: 02/02/19 08:51 Freq: Status: Active Protocol: Document 12/01/19 13:47 SAK (Rec: 12/01/19 17:08 SAK [id number]) Current Condition History of Current Condition Current Complaints R shoulder pain History of Current Condition Original injury: Chrissy was moving a laundry cart at work and the wheel got caught and her right shoulder was adducted and she felt suddent onset pain. She thought it would go away with time but has been getting worse. 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 She has been noticing clicking in the shoulder that has just started . The pain is worse with overhead movements and is located in the posterior aspect of the glenohumeral joint. She does have a previous back surgery history and has noticed a return of back pain in the last month first thing in the morning and when she is done with work. She has also noticed a pulling in her left foot for the past 3-4 months. Prior Treatments and Tests Underwent arthroscopic surgery right shoulder (no surgery details available; patient reports debreidment) 11/17/[address] Trevizo. Has been wearing sling, is to wean off of sling by 12/05/19; saw doctor for post-op follow-up yesterday. 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 Prior Functional Status Baseline Function- ADL's Independent Baseline Function- Mobility Independent Current Functional Impairments (Reported) Functional Limitations- ADL's severe currently s/p surgery, wearing sling. Patient is right hand dominant PT-OP-C Subjective Start: 02/02/19 08:51 Freq: Status: Active Protocol: Document 12/13/19 09:03 MB (Rec: 12/13/19 09:45 MB [id number]) OP-PT Subjective Patient Comments Patient Comments Pt got an order in the mail that included contrast bath therapy, mechanical traction therapy and physical performance test. Pt had asked surgeon about massage and he said no. Pt reports thoracic pain and tension. PT-OP-J Posture/Palpation/Skin Start: 02/02/19 08:51 Freq: Status: Active Protocol: Document 12/01/19 13:47 SAK (Rec: 12/01/19 17:08 SAK [id number]) Posture Evaluation Position Sitting Head/C-Spine Posture Forward Head Shoulder Posture (L) Rounded,(R) Rounded,(L) Forward,(R) Forward Skin Assessment Incisional Assessment Incision Appearance/Comments intact, well-healed arthroscopic incisions right shoulder, immature scars, decreased mobility. PT-OP-K Range of Motion Start: 02/02/19 08:51 Freq: Status: Active Protocol: Document 12/01/19 13:47 SAK (Rec: 12/01/19 17:08 SAK [id number]) Cervical Spine Range of Motion Cervical Spine Active Comments WNL Shoulder Goniometric Range of Motion Shoulder Right Passive Testing Position Supine and sitting Flexion 158 Extension 20 Abduction 135 External Rotation at 45 degrees 75 Abduction Internal Rotation 67 Shoulder ROM Limitations Comments active not tested due to lack of shoulder restrictions or protocol from physician Elbow/Forearm Range of Motion Elbow/Forearm ROM Limitations Comments WNL Wrist Goniometric Range of Motion ROM Limitations Comments WNl PT-OP-L Special Tests Start: 02/02/19 08:51 Freq: Status: Active Protocol: Document 02/02/19 09:00 AMB (Rec: 02/02/19 10:31 AMB [id number]) Special Tests Shoulder Special Tests Acuna Yifan Impingement Test Results negative Neer Impingement Test Results positive Lift-Off Rotator Cuff Test Results positive PT-OP-M Strength Start: 02/02/19 08:51 Freq: Status: Active Protocol: Document 12/01/19 13:47 SAK (Rec: 12/01/19 17:08 SAK [id number]) Shoulder Strength Shoulder Manual Muscle Testing Right Comments deferred due to post-op Elbow/Forearm Strength Elbow and Forearm Manual Muscle Testing Right Comments has antigravity flexion Hand Porter Luggage/Pinch Strength Hand Dominance Hand Dominance Right PT-OP-Q Treatments Start: 02/02/19 08:51 Freq: Status: Active Protocol: Document 12/13/19 09:03 MB (Rec: 12/13/19 09:45 MB [id number]) Therapeutic Exercises Sitting Exercises table passive shoulder ER Reps/Minutes 5 reps slowly, stretch Comments Pt performs slowly in standing with mat elevated table slide shoulder flex Reps/Minutes 5 slowly Comments Pt performs slowly in standing today with mat up hand, wrist, elbow AROM Comments D/cd d/t pt is using her hands normally scapular retraction Reps/Minutes 5 times slowly Comments Perform in standing, ed to perform throughout the day Standing Exercises 6 Reps/Minutes 20 reps Comments Pendulum forward and back 3 Standing Exercise Name Racquet ball soft tissue mobilization intrascapular area Comments Use sock to avoid over shoulder use Manual Therapy Treatment Other Other Manual Treatments Prone thoracic mobs grade III- IV, gentle scapular mobs grade II-III, rib recoil to improve passive and active assisted shoulder motion. 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 08/23: Pt has been able to feel clicking but not pain her shoulder when doing overhead activities like washing her bathroom mirror or D2 flexion Tb #2, she has not returned to work yet. 12/10/19 UPDATED POST-OP GOAL: pt. will be able to do all usual ADL's with pain no greater than 2/10 LTG Duration 02/29/20 Two Impairment strength Short Term Goal (STG) Chrissy will increase her strength to 5/5 in all planes. 08/23: improvement made: weakness remains in flexion and external rotation, able to complete FF 3# DB FF to OH unable 5#DB and punch 10 # OH. 11/30/19: UPDATED POST-OP GOAL pt will demonstrate 4/5 muscle strength all shoulder planes STG Duration 01/12/20 Head Gauge Unit Operator Goal (LTG) Chrissy will lift 20 pounds to shoulder height without an increase in baseline pain. 11/30/19 UPDATED POST-OP GOAL: pt. will demonstrate 5/5 muscle strength all planes LTG Duration 02/29/20 One Impairment ROM Short Term Goal (STG) Chrissy will increase abduction AROM to 170 degrees without pain. PROGRESS MADE 08/23: good progress 146* standing, 160* (improvement of 3 *) with report of numbness in fingers into range OH. 11/30/19: POST-OP UPDATED GOAL pt. will be able to reach overhead and behind her back with full ROM with minimal to no pain Assessment Summary Assessment Pt actively moves her shoulders well. PT reviewed exercises with pt and she performs well, initiated thoracic mobility today to assist with progression of shoulder movement. Pt would like to be able to fasten her bra I. Initiated racquet ball work today to address thoracic stiffness and pain. Physical Therapy Plan Frequency and Duration Frequency of Treatment 2x/Week Duration of Treatment 12 wks Plan of Care Start Date 12/01/19 Plan of Care End Date 02/29/20 Therapeutic Interventions Therapeutic Interventions Aquatic Therapy,Home Exercise Program,Joint Mobilizations, Manual Therapy,Neuromuscular Re-education,Self-Care/Home Management,Therapeutic Activities,Therapeutic Exercises Modalities Cold Pack/Ice Massage,Electric Stimulation,Ultrasound Next Visit Focus/Plan Next Note Type Treatment Note Next Visit Plan Progress ther ex as tolerated for right shoulder ROM and strengthening and per any restrictions or protocol received by physician (left message today requesting clarification.) Include postural retraining due to protective posturing, soft tissue mobilization as indicated for scar and muscle tension.
--- NOTE | 2019-12-19 10:30 | PT.OTN ---
Current Diagnoses Pain in right shoulder (12/19/19) Strain of unspecified muscle, fascia and tendon at shoulder and upper arm level, right arm, initial encounter (12/19/19) Physical Therapy Treatment Note PT-OP-A Visit Information Start: 02/02/19 08:51 Freq: Status: Active Protocol: Document 12/19/19 09:48 SP (Rec: 12/19/19 10:30 SP [id number]) Out-Patient Physical Therapy Visit Information Visit Information Visit Type Treatment Note Visit Note Chart Doc 12/02/19: 4-6 weeks initiate periscapular& RTC strengthening exercises as tolerated. Visit Start Time 09:48 Visit Stop Time 10:30 Total Visit Minutes 42 Visit Number 37 Number of CHECK WEIGHER Visits 1 PT-OP-B Current Condition Start: 02/02/19 08:51 Freq: Status: Active Protocol: Document 12/01/19 13:47 SAK (Rec: 12/01/19 17:08 SAK [id number]) Current Condition History of Current Condition Current Complaints R shoulder pain History of Current Condition Original injury: Chrissy was moving a laundry cart at work and the wheel got caught and her right shoulder was adducted and she felt suddent onset pain. She thought it would go away with time but has been getting worse. 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 She has been noticing clicking in the shoulder that has just started . The pain is worse with overhead movements and is located in the posterior aspect of the glenohumeral joint. She does have a previous back surgery history and has noticed a return of back pain in the last month first thing in the morning and when she is done with work. She has also noticed a pulling in her left foot for the past 3-4 months. Prior Treatments and Tests Underwent arthroscopic surgery right shoulder (no surgery details available; patient reports debreidment) 11/17/[address] Trevizo. Has been wearing sling, is to wean off of sling by 12/05/19; saw doctor for post-op follow-up yesterday. 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 Prior Functional Status Baseline Function- ADL's Independent Baseline Function- Mobility Independent Current Functional Impairments (Reported) Functional Limitations- ADL's severe currently s/p surgery, wearing sling. Patient is right hand dominant PT-OP-C Subjective Start: 02/02/19 08:51 Freq: Status: Active Protocol: Document 12/19/19 09:48 SP (Rec: 12/19/19 10:30 SP [id number]) OP-PT Subjective Patient Comments Patient Comments Pt stated tolerating exercises well with R shld, seem easy. Racquetball helped alot for discomfort lateral R shld and interascapular area. No pain pre PT today. Pt PT-OP-J Posture/Palpation/Skin Start: 02/02/19 08:51 Freq: Status: Active Protocol: Document 12/01/19 13:47 SAK (Rec: 12/01/19 17:08 SAK [id number]) Posture Evaluation Position Sitting Head/C-Spine Posture Forward Head Shoulder Posture (L) Rounded,(R) Rounded,(L) Forward,(R) Forward Skin Assessment Incisional Assessment Incision Appearance/Comments intact, well-healed arthroscopic incisions right shoulder, immature scars, decreased mobility. PT-OP-K Range of Motion Start: 02/02/19 08:51 Freq: Status: Active Protocol: Document 12/01/19 13:47 SAK (Rec: 12/01/19 17:08 SAK [id number]) Cervical Spine Range of Motion Cervical Spine Active Comments WNL Shoulder Goniometric Range of Motion Shoulder Right Passive Testing Position Supine and sitting Flexion 158 Extension 20 Abduction 135 External Rotation at 45 degrees 75 Abduction Internal Rotation 67 Shoulder ROM Limitations Comments active not tested due to lack of shoulder restrictions or protocol from physician Elbow/Forearm Range of Motion Elbow/Forearm ROM Limitations Comments WNL Wrist Goniometric Range of Motion ROM Limitations Comments WNl PT-OP-L Special Tests Start: 02/02/19 08:51 Freq: Status: Active Protocol: Document 02/02/19 09:00 AMB (Rec: 02/02/19 10:31 AMB [id number]) Special Tests Shoulder Special Tests Acuna Yifan Impingement Test Results negative Neer Impingement Test Results positive Lift-Off Rotator Cuff Test Results positive PT-OP-M Strength Start: 02/02/19 08:51 Freq: Status: Active Protocol: Document 12/01/19 13:47 SAK (Rec: 12/01/19 17:08 SAK [id number]) Shoulder Strength Shoulder Manual Muscle Testing Right Comments deferred due to post-op Elbow/Forearm Strength Elbow and Forearm Manual Muscle Testing Right Comments has antigravity flexion Hand Adjustment Supervisor/Pinch Strength Hand Dominance Hand Dominance Right PT-OP-Q Treatments Start: 02/02/19 08:51 Freq: Status: Active Protocol: Document 12/19/19 09:48 SP (Rec: 12/19/19 10:30 SP [id number]) Cardio Equipment Upper Body Ergometer (UBE) Duration (Minutes) 6 RPM 120 Other 3 min f /b Therapeutic Exercises Supine Exercises Pulleys Supine Exercise Name FF, ABD Reps/Minutes 10 reps x2 each direction Standing Exercises TB ext, IR, ER Standing Exercise Name R shld: ext to neutral at alexus, IR, ER w/towel roll Side right Resistance L1 Reps/Minutes 10 x2 each Comments cued slow con/ecc mov't with scap stabilization scap retraction Reps/Minutes 10 sec hold x10 Comments cued scap stabilization FF Standing Exercise Name FF ball on wall Reps/Minutes 10 x2 Comments ROM to tolerance 3 Standing Exercise Name Racquet ball soft tissue mobilization intrascapular area Comments Use sock to avoid over shoulder use PT-OP-R Modalities Start: 02/02/19 08:51 Freq: Status: Active Protocol: Document 12/01/19 13:47 SAK (Rec: 12/01/19 17:08 SAK [id number]) Hot Pack/Cold Pack Treatment Cold Pack Location R GH Patient Position Hooklying Treatment Duration (minutes) 10 PT-OP-T Assessment and Plan Start: 02/02/19 08:51 Freq: Status: Active Protocol: Document 12/19/19 09:48 SP (Rec: 12/19/19 10:30 SP [id number]) Physical Therapy Assessment Goals Three Impairment pain Group Home Goal (LTG) Chrissy will be able to work 4 hours with 3/10 pain or less. 08/23: Pt has been able to feel clicking but not pain her shoulder when doing overhead activities like washing her bathroom mirror or D2 flexion Tb #2, she has not returned to work yet. 12/10/19 UPDATED POST-OP GOAL: pt. will be able to do all usual ADL's with pain no greater than 2/10 LTG Duration 02/29/20 Two Impairment strength Short Term Goal (STG) Chrissy will increase her strength to 5/5 in all planes. 08/23: improvement made: weakness remains in flexion and external rotation, able to complete FF 3# DB FF to OH unable 5#DB and punch 10 # OH. 11/30/19: UPDATED POST-OP GOAL pt will demonstrate 4/5 muscle strength all shoulder planes STG Duration 01/12/20 Group Home Goal (LTG) Chrissy will lift 20 pounds to shoulder height without an increase in baseline pain. 11/30/19 UPDATED POST-OP GOAL: pt. will demonstrate 5/5 muscle strength all planes LTG Duration 02/29/20 One Impairment ROM Short Term Goal (STG) Chrissy will increase abduction AROM to 170 degrees without pain. PROGRESS MADE 08/23: good progress 146* standing, 160* (improvement of 3 *) with report of numbness in fingers into range OH. 11/30/19: POST-OP UPDATED GOAL pt. will be able to reach overhead and behind her back with full ROM with minimal to no pain Assessment Summary Assessment Incorporated low level strengthening today, 4 weeks out per protocol with good tolerance reported no pain or discomfort just tiring and little shaky. Pt reported little shaky during shld ext to neutral more than IR/ER Lv 1 band. Pt required occasional cuing for scap stabilization during IR. Will continue to progress per tolerance. Physical Therapy Plan Frequency and Duration Frequency of Treatment 2x/Week Duration of Treatment 12 wks Plan of Care Start Date 12/01/19 Plan of Care End Date 02/29/20 Next Visit Focus/Plan Next Note Type Treatment Note Next Visit Plan Charted 12/02/19: 4-6 weeks initiate periscapular& RTC strengthening exercises as tolerated.
--- NOTE | 2019-12-22 09:14 | PT-OP ANOTE ---
DNS for PT appointment at 9:00 today.
--- NOTE | 2019-12-22 11:15 | PT.OTN ---
Current Diagnoses Pain in right shoulder (12/22/19) Strain of unspecified muscle, fascia and tendon at shoulder and upper arm level, right arm, initial encounter (12/22/19) Physical Therapy Treatment Note PT-OP-A Visit Information Start: 02/02/19 08:51 Freq: Status: Active Protocol: Document 12/22/19 10:33 SP (Rec: 12/22/19 11:24 SP [id number]) Out-Patient Physical Therapy Visit Information Visit Information Visit Type Treatment Note Visit Start Time 10:33 Visit Stop Time 11:15 Total Visit Minutes 42 Visit Number 38 Number of LAN MANAGER Visits 2 PT-OP-B Current Condition Start: 02/02/19 08:51 Freq: Status: Active Protocol: Document 12/01/19 13:47 SAK (Rec: 12/01/19 17:08 SAK [id number]) Current Condition History of Current Condition Current Complaints R shoulder pain History of Current Condition Original injury: Chrissy was moving a laundry cart at work and the wheel got caught and her right shoulder was adducted and she felt suddent onset pain. She thought it would go away with time but has been getting worse. 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 She has been noticing clicking in the shoulder that has just started . The pain is worse with overhead movements and is located in the posterior aspect of the glenohumeral joint. She does have a previous back surgery history and has noticed a return of back pain in the last month first thing in the morning and when she is done with work. She has also noticed a pulling in her left foot for the past 3-4 months. Prior Treatments and Tests Underwent arthroscopic surgery right shoulder (no surgery details available; patient reports debreidment) 11/17/[address] Trevizo. Has been wearing sling, is to wean off of sling by 12/05/19; saw doctor for post-op follow-up yesterday. 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 Prior Functional Status Baseline Function- ADL's Independent Baseline Function- Mobility Independent Current Functional Impairments (Reported) Functional Limitations- ADL's severe currently s/p surgery, wearing sling. Patient is right hand dominant PT-OP-C Subjective Start: 02/02/19 08:51 Freq: Status: Active Protocol: Document 12/22/19 10:33 SP (Rec: 12/22/19 11:24 SP [id number]) OP-PT Subjective Patient Comments Patient Comments Pt reported did well after last tx. Can scratch her L shld with R now and able to don bra from front just cant clasp directly in middle of back. Compliant with HEP performed last tx. Pt stated still feeling discomfort tightness over R intrascapular and infraspinatus regions using ball at home but would like to have manual today. PT-OP-J Posture/Palpation/Skin Start: 02/02/19 08:51 Freq: Status: Active Protocol: Document 12/01/19 13:47 SAK (Rec: 12/01/19 17:08 SAK [id number]) Posture Evaluation Position Sitting Head/C-Spine Posture Forward Head Shoulder Posture (L) Rounded,(R) Rounded,(L) Forward,(R) Forward Skin Assessment Incisional Assessment Incision Appearance/Comments intact, well-healed arthroscopic incisions right shoulder, immature scars, decreased mobility. PT-OP-K Range of Motion Start: 02/02/19 08:51 Freq: Status: Active Protocol: Document 12/01/19 13:47 SAK (Rec: 12/01/19 17:08 SAK [id number]) Cervical Spine Range of Motion Cervical Spine Active Comments WNL Shoulder Goniometric Range of Motion Shoulder Right Passive Testing Position Supine and sitting Flexion 158 Extension 20 Abduction 135 External Rotation at 45 degrees 75 Abduction Internal Rotation 67 Shoulder ROM Limitations Comments active not tested due to lack of shoulder restrictions or protocol from physician Elbow/Forearm Range of Motion Elbow/Forearm ROM Limitations Comments WNL Wrist Goniometric Range of Motion ROM Limitations Comments WNl PT-OP-L Special Tests Start: 02/02/19 08:51 Freq: Status: Active Protocol: Document 02/02/19 09:00 AMB (Rec: 02/02/19 10:31 AMB [id number]) Special Tests Shoulder Special Tests Acuna Yifan Impingement Test Results negative Neer Impingement Test Results positive Lift-Off Rotator Cuff Test Results positive PT-OP-M Strength Start: 02/02/19 08:51 Freq: Status: Active Protocol: Document 12/01/19 13:47 SAK (Rec: 12/01/19 17:08 SAK [id number]) Shoulder Strength Shoulder Manual Muscle Testing Right Comments deferred due to post-op Elbow/Forearm Strength Elbow and Forearm Manual Muscle Testing Right Comments has antigravity flexion Hand Oracle Architect/Pinch Strength Hand Dominance Hand Dominance Right PT-OP-Q Treatments Start: 02/02/19 08:51 Freq: Status: Active Protocol: Document 12/22/19 10:33 SP (Rec: 12/22/19 11:24 SP [id number]) Therapeutic Exercises Supine Exercises TS ext/roll Supine Exercise Name horizontal spine (TS) Equipment Used foam roller Reps/Minutes x5 Comments cued set up and proper form small range throught TS only pec stretch foam roller Side right Resistance AROM Reps/Minutes 30 sec Comments 90 * ABD Sitting Exercises pulleys Sitting Exercise Name FF, ABD, ER, IR Side right Resistance AAROM Reps/Minutes x10 Comments cued for set up and form, close chain standing Ir/ER Standing Exercises shld ext Side right Equipment Used L1 Reps/Minutes 10 TB ext, IR, ER Standing Exercise Name R shld: ext to neutral at alexus, IR, ER w/towel roll Side right Resistance L1 Reps/Minutes 10 x2 each Comments cued slow con/ecc mov't with scap stabilization scap retraction Reps/Minutes 10 sec hold x10 Comments cued scap stabilization Scaption Standing Exercise Name facing wall Side right Resistance AROM Reps/Minutes 10 Manual Therapy Treatment Soft Tissue Mobilization R pec Mobilization Type Cross-Friction,Strumming Intensity/Depth Moderate Body Position Supine Comments manual R Rhomboid, infraspinatus, supraspinatus Mobilization Type Cross-Friction,Strumming Intensity/Depth Moderate Body Position Prone Comments manual and racquetball at wall PT-OP-R Modalities Start: 02/02/19 08:51 Freq: Status: Active Protocol: Document 12/01/19 13:47 SAK (Rec: 12/01/19 17:08 SAK [id number]) Hot Pack/Cold Pack Treatment Cold Pack Location R GH Patient Position Hooklying Treatment Duration (minutes) 10 PT-OP-T Assessment and Plan Start: 02/02/19 08:51 Freq: Status: Active Protocol: Document 12/22/19 10:33 SP (Rec: 12/22/19 11:24 SP [id number]) Physical Therapy Assessment Goals Three Impairment pain Welt Wheeler Goal (LTG) Chrissy will be able to work 4 hours with 3/10 pain or less. 08/23: Pt has been able to feel clicking but not pain her shoulder when doing overhead activities like washing her bathroom mirror or D2 flexion Tb #2, she has not returned to work yet. 12/10/19 UPDATED POST-OP GOAL: pt. will be able to do all usual ADL's with pain no greater than 2/10 LTG Duration 02/29/20 Two Impairment strength Short Term Goal (STG) Chrissy will increase her strength to 5/5 in all planes. 08/23: improvement made: weakness remains in flexion and external rotation, able to complete FF 3# DB FF to OH unable 5#DB and punch 10 # OH. 11/30/19: UPDATED POST-OP GOAL pt will demonstrate 4/5 muscle strength all shoulder planes STG Duration 01/12/20 Welt Wheeler Goal (LTG) Chrissy will lift 20 pounds to shoulder height without an increase in baseline pain. 11/30/19 UPDATED POST-OP GOAL: pt. will demonstrate 5/5 muscle strength all planes LTG Duration 02/29/20 One Impairment ROM Short Term Goal (STG) Chrissy will increase abduction AROM to 170 degrees without pain. PROGRESS MADE 08/23: good progress 146* standing, 160* (improvement of 3 *) with report of numbness in fingers into range OH. 11/30/19: POST-OP UPDATED GOAL pt. will be able to reach overhead and behind her back with full ROM with minimal to no pain Assessment Summary Assessment Pt tolerated manual and demonstrated use of racquetball roll post R scap for decreased tightness/ discomfort for home performance follow through. Today added supien scaption, standing AAROM ER/IR with towel/cane to assist ROM and comfort with good result feedback R shld little sore but it and mid back feel alot better. Good scap stab during TB ex today. Physical Therapy Plan Frequency and Duration Frequency of Treatment 2x/Week Duration of Treatment 12 wks Plan of Care Start Date 12/01/19 Plan of Care End Date 02/29/20 Therapeutic Interventions Therapeutic Interventions Aquatic Therapy,Home Exercise Program,Joint Mobilizations, Manual Therapy,Neuromuscular Re-education,Self-Care/Home Management,Therapeutic Activities,Therapeutic Exercises Modalities Cold Pack/Ice Massage,Electric Stimulation,Ultrasound Next Visit Focus/Plan Next Note Type Treatment Note Next Visit Plan Assess response to last tx manual, AROM scaption, TS ext/ rolling, R shld ex. AAROM R shld and ther ex. Continue: Charted 12/02/19: 4-6 weeks initiate periscapular& RTC strengthening exercises as tolerated.
--- NOTE | 2020-01-05 17:40 | PT.OTN ---
Current Diagnoses Pain in right shoulder (01/05/20) Strain of unspecified muscle, fascia and tendon at shoulder and upper arm level, right arm, initial encounter (01/05/20) Physical Therapy Treatment Note PT-OP-A Visit Information Start: 02/02/19 08:51 Freq: Status: Active Protocol: Document 01/05/20 17:27 AMH (Rec: 01/05/20 17:39 AMH [id number]) Out-Patient Physical Therapy Visit Information Visit Information Visit Type Treatment Note Visit Start Time 14:30 Visit Stop Time 15:15 Total Visit Minutes 45 Visit Number 39 Number of PRODUCT DELIVERY SPECIALIST Visits 3 PT-OP-B Current Condition Start: 02/02/19 08:51 Freq: Status: Active Protocol: Document 12/01/19 13:47 SAK (Rec: 12/01/19 17:08 SAK [id number]) Current Condition History of Current Condition Current Complaints R shoulder pain History of Current Condition Original injury: Chrissy was moving a laundry cart at work and the wheel got caught and her right shoulder was adducted and she felt suddent onset pain. She thought it would go away with time but has been getting worse. 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 She has been noticing clicking in the shoulder that has just started . The pain is worse with overhead movements and is located in the posterior aspect of the glenohumeral joint. She does have a previous back surgery history and has noticed a return of back pain in the last month first thing in the morning and when she is done with work. She has also noticed a pulling in her left foot for the past 3-4 months. Prior Treatments and Tests Underwent arthroscopic surgery right shoulder (no surgery details available; patient reports debreidment) 11/17/[address] Trevizo. Has been wearing sling, is to wean off of sling by 12/05/19; saw doctor for post-op follow-up yesterday. 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 Prior Functional Status Baseline Function- ADL's Independent Baseline Function- Mobility Independent Current Functional Impairments (Reported) Functional Limitations- ADL's severe currently s/p surgery, wearing sling. Patient is right hand dominant PT-OP-C Subjective Start: 02/02/19 08:51 Freq: Status: Active Protocol: Document 01/05/20 17:27 [facility] (Rec: 01/05/20 17:39 AMH [id number]) OP-PT Subjective Patient Comments Patient Comments pt has been out of the state in [place] as she had a to go to that was unexpected. SHe hasn't been able to do her exercises while out of town. She did see her surgeon though and was cleared to begin rotator cuff stabilization PT-OP-J Posture/Palpation/Skin Start: 02/02/19 08:51 Freq: Status: Active Protocol: Document 12/01/19 13:47 SAK (Rec: 12/01/19 17:08 SAK [id number]) Posture Evaluation Position Sitting Head/C-Spine Posture Forward Head Shoulder Posture (L) Rounded,(R) Rounded,(L) Forward,(R) Forward Skin Assessment Incisional Assessment Incision Appearance/Comments intact, well-healed arthroscopic incisions right shoulder, immature scars, decreased mobility. PT-OP-K Range of Motion Start: 02/02/19 08:51 Freq: Status: Active Protocol: Document 12/01/19 13:47 SAK (Rec: 12/01/19 17:08 SAK [id number]) Cervical Spine Range of Motion Cervical Spine Active Comments WNL Shoulder Goniometric Range of Motion Shoulder Right Passive Testing Position Supine and sitting Flexion 158 Extension 20 Abduction 135 External Rotation at 45 degrees 75 Abduction Internal Rotation 67 Shoulder ROM Limitations Comments active not tested due to lack of shoulder restrictions or protocol from physician Elbow/Forearm Range of Motion Elbow/Forearm ROM Limitations Comments WNL Wrist Goniometric Range of Motion ROM Limitations Comments WNl PT-OP-L Special Tests Start: 02/02/19 08:51 Freq: Status: Active Protocol: Document 02/02/19 09:00 AMB (Rec: 02/02/19 10:31 AMB [id number]) Special Tests Shoulder Special Tests Acuna Yifan Impingement Test Results negative Neer Impingement Test Results positive Lift-Off Rotator Cuff Test Results positive PT-OP-M Strength Start: 02/02/19 08:51 Freq: Status: Active Protocol: Document 12/01/19 13:47 SAK (Rec: 12/01/19 17:08 SAK [id number]) Shoulder Strength Shoulder Manual Muscle Testing Right Comments deferred due to post-op Elbow/Forearm Strength Elbow and Forearm Manual Muscle Testing Right Comments has antigravity flexion Hand Pump Runner/Pinch Strength Hand Dominance Hand Dominance Right PT-OP-Q Treatments Start: 02/02/19 08:51 Freq: Status: Active Protocol: Document 01/05/20 17:27 AMH (Rec: 01/05/20 17:39 AMH [id number]) Therapeutic Exercises Supine Exercises TS ext/roll Supine Exercise Name horizontal spine (TS) Equipment Used foam roller Reps/Minutes x5 Comments cued set up and proper form small range throught TS only pec stretch foam roller Side right Resistance AROM Reps/Minutes 30 sec Comments 90 * ABD shoulder flex Reps/Minutes 10x Comments passive, pain-free ROM Sidelying Exercises 3 Sidelying Exercise Name sidelying ER Equipment Used 1 # Reps/Minutes 3x 10 reps 1 Sidelying Exercise Name Open Books Side bilateral Reps/Minutes 10x each way Standing Exercises 10 Standing Exercise Name horizontal abduction in a bent row position Reps/Minutes 0 wt 2 x 10 reps 9 Standing Exercise Name Bent rows Reps/Minutes 4# sx10 reps shld ext Side right Equipment Used L1 Reps/Minutes 10 TB ext, IR, ER Standing Exercise Name R shld: ext to neutral at alexus, IR, ER w/towel roll Side right Resistance L1 Reps/Minutes 10 x3 each Comments cued slow con/ecc mov't with scap stabilization scap retraction Reps/Minutes 10 sec hold x10 Comments cued scap stabilization tricep ext TB Standing Exercise Name Standing triceps extension Resistance TB #3 Reps/Minutes 3x15 Comments B together Scaption Standing Exercise Name facing wall Side right Resistance AROM Reps/Minutes 10 7 Standing Exercise Name Biceps Curls Side bilateral Resistance 7# Equipment Used dumbbell Reps/Minutes 2x10 Comments alternate arms 5 Standing Exercise Name shoulder extension Side right Resistance #3 t band Reps/Minutes 2x10 Comments cued scap stab PT-OP-R Modalities Start: 02/02/19 08:51 Freq: Status: Active Protocol: Document 12/01/19 13:47 SAK (Rec: 12/01/19 17:08 SAK [id number]) Hot Pack/Cold Pack Treatment Cold Pack Location R GH Patient Position Hooklying Treatment Duration (minutes) 10 PT-OP-T Assessment and Plan Start: 02/02/19 08:51 Freq: Status: Active Protocol: Document 01/05/20 17:27 [facility] (Rec: 01/05/20 17:39 [facility] [id number]) Physical Therapy Assessment Assessment Summary Assessment pt had very low pain levels today, she tolerated Rotator cuff and scapula stabilization well Physical Therapy Plan Frequency and Duration Frequency of Treatment 2x/Week Duration of Treatment 12 wks Plan of Care Start Date 12/01/19 Plan of Care End Date 02/29/20 Next Visit Focus/Plan Next Visit Plan Pt cleared for RC stabilization exercises, progress stabilization of the RC and scapula stabilizers.
--- NOTE | 2020-01-10 11:56 | PT.OTN ---
Current Diagnoses Pain in right shoulder (01/10/20) Strain of unspecified muscle, fascia and tendon at shoulder and upper arm level, right arm, initial encounter (01/10/20) Physical Therapy Treatment Note PT-OP-A Visit Information Start: 02/02/19 08:51 Freq: Status: Active Protocol: Document 01/10/20 10:45 SAK (Rec: 01/10/20 11:56 [facility] [id number]) Out-Patient Physical Therapy Visit Information Visit Information Visit Type Treatment Note Visit Note patient 15 min late Visit Start Time 10:45 Visit Stop Time 11:20 Total Visit Minutes 35 Visit Number 40 Number of PASTRY COOK HELPER Visits 0 PT-OP-B Current Condition Start: 02/02/19 08:51 Freq: Status: Active Protocol: Document 12/01/19 13:47 SAK (Rec: 12/01/19 17:08 [facility] [id number]) Current Condition History of Current Condition Current Complaints R shoulder pain History of Current Condition Original injury: Chrissy was moving a laundry cart at work and the wheel got caught and her right shoulder was adducted and she felt suddent onset pain. She thought it would go away with time but has been getting worse. 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 She has been noticing clicking in the shoulder that has just started . The pain is worse with overhead movements and is located in the posterior aspect of the glenohumeral joint. She does have a previous back surgery history and has noticed a return of back pain in the last month first thing in the morning and when she is done with work. She has also noticed a pulling in her left foot for the past 3-4 months. Prior Treatments and Tests Underwent arthroscopic surgery right shoulder (no surgery details available; patient reports debreidment) 11/17/[address] Trevizo. Has been wearing sling, is to wean off of sling by 12/05/19; saw doctor for post-op follow-up yesterday. 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 Prior Functional Status Baseline Function- ADL's Independent Baseline Function- Mobility Independent Current Functional Impairments (Reported) Functional Limitations- ADL's severe currently s/p surgery, wearing sling. Patient is right hand dominant PT-OP-C Subjective Start: 02/02/19 08:51 Freq: Status: Active Protocol: Document 01/10/20 10:45 SAK (Rec: 01/10/20 11:56 SAK [id number]) OP-PT Subjective Patient Comments Patient Comments Reports min to no pain, mostly just muscle soreness. Doing HEP. PT-OP-J Posture/Palpation/Skin Start: 02/02/19 08:51 Freq: Status: Active Protocol: Document 12/01/19 13:47 SAK (Rec: 12/01/19 17:08 SAK [id number]) Posture Evaluation Position Sitting Head/C-Spine Posture Forward Head Shoulder Posture (L) Rounded,(R) Rounded,(L) Forward,(R) Forward Skin Assessment Incisional Assessment Incision Appearance/Comments intact, well-healed arthroscopic incisions right shoulder, immature scars, decreased mobility. PT-OP-K Range of Motion Start: 02/02/19 08:51 Freq: Status: Active Protocol: Document 12/01/19 13:47 SAK (Rec: 12/01/19 17:08 SAK [id number]) Cervical Spine Range of Motion Cervical Spine Active Comments WNL Shoulder Goniometric Range of Motion Shoulder Right Passive Testing Position Supine and sitting Flexion 158 Extension 20 Abduction 135 External Rotation at 45 degrees 75 Abduction Internal Rotation 67 Shoulder ROM Limitations Comments active not tested due to lack of shoulder restrictions or protocol from physician Elbow/Forearm Range of Motion Elbow/Forearm ROM Limitations Comments WNL Wrist Goniometric Range of Motion ROM Limitations Comments WNl PT-OP-L Special Tests Start: 02/02/19 08:51 Freq: Status: Active Protocol: Document 02/02/19 09:00 AMB (Rec: 02/02/19 10:31 AMB [id number]) Special Tests Shoulder Special Tests Acuna Yifan Impingement Test Results negative Neer Impingement Test Results positive Lift-Off Rotator Cuff Test Results positive PT-OP-M Strength Start: 02/02/19 08:51 Freq: Status: Active Protocol: Document 12/01/19 13:47 SAK (Rec: 12/01/19 17:08 SAK [id number]) Shoulder Strength Shoulder Manual Muscle Testing Right Comments deferred due to post-op Elbow/Forearm Strength Elbow and Forearm Manual Muscle Testing Right Comments has antigravity flexion Hand Operating Room Technologist/Pinch Strength Hand Dominance Hand Dominance Right PT-OP-Q Treatments Start: 02/02/19 08:51 Freq: Status: Active Protocol: Document 01/10/20 10:45 [facility] (Rec: 01/10/20 11:56 [facility] [id number]) Cardio Equipment Upper Body Ergometer (UBE) Duration (Minutes) 6 RPM 120 Other 3 min f /b Therapeutic Exercises Sitting Exercises pulleys Sitting Exercise Name FF, ABD, ER, IR Side right Resistance AAROM Reps/Minutes x10 Comments cued for set up and form, close chain standing Ir/ER Standing Exercises 10 Standing Exercise Name horizontal abduction in a bent row position Reps/Minutes 0 wt 2 x 10 reps 9 Standing Exercise Name Bent rows Reps/Minutes 4# sx10 reps shld ext Side right Equipment Used L1 Reps/Minutes 10 tricep ext TB Standing Exercise Name Standing triceps extension Resistance TB #3 Reps/Minutes 3x15 Comments B together 7 Standing Exercise Name Biceps Curls Side bilateral Resistance 7# Equipment Used dumbbell Reps/Minutes 2x10 5 Standing Exercise Name shoulder extension Side right Resistance #2 t band Reps/Minutes 2x10 Comments cued scap stab Manual Therapy Treatment Soft Tissue Mobilization scar massage Body Location surgical scars Mobilization Type Strumming,Sustained Pressure Body Position Hooklying R pec Mobilization Type Cross-Friction,Strumming Intensity/Depth Moderate Body Position Supine Comments manual R Rhomboid, infraspinatus, supraspinatus Mobilization Type Cross-Friction,Strumming PT-OP-R Modalities Start: 02/02/19 08:51 Freq: Status: Active Protocol: Document 12/01/19 13:47 [facility] (Rec: 12/01/19 17:08 [facility] [id number]) Hot Pack/Cold Pack Treatment Cold Pack Location R GH Patient Position Hooklying Treatment Duration (minutes) 10 PT-OP-T Assessment and Plan Start: 02/02/19 08:51 Freq: Status: Active Protocol: Document 01/10/20 10:45 [facility] (Rec: 01/10/20 11:56 [facility] [id number]) Physical Therapy Assessment Goals Three Impairment pain Magnetic Tape Winder Goal (LTG) Chrissy will be able to work 4 hours with 3/10 pain or less. 08/23: Pt has been able to feel clicking but not pain her shoulder when doing overhead activities like washing her bathroom mirror or D2 flexion Tb #2, she has not returned to work yet. 12/10/19 UPDATED POST-OP GOAL: pt. will be able to do all usual ADL's with pain no greater than 2/10 01/10/20: minimal pain 2-3/10, good progress LTG Duration 02/29/20 Two Impairment strength Short Term Goal (STG) Chrissy will increase her strength to 5/5 in all planes. 08/23: improvement made: weakness remains in flexion and external rotation, able to complete FF 3# DB FF to OH unable 5#DB and punch 10 # OH. 11/30/19: UPDATED POST-OP GOAL pt will demonstrate 4/5 muscle strength all shoulder planes 01/10/20: strength 3+/5, goal progrss STG Duration 01/12/20 Magnetic Tape Winder Goal (LTG) Chrissy will lift 20 pounds to shoulder height without an increase in baseline pain. 11/30/19 UPDATED POST-OP GOAL: pt. will demonstrate 5/5 muscle strength all planes LTG Duration 02/29/20 One Impairment ROM Short Term Goal (STG) Chrissy will increase abduction AROM to 170 degrees without pain. PROGRESS MADE 08/23: good progress 146* standing, 160* (improvement of 3 *) with report of numbness in fingers into range OH. 11/30/19: POST-OP UPDATED GOAL pt. will be able to reach overhead and behind her back with full ROM with minimal to no pain 01/10/20: able to reach overhead with minimal to no pain, pain variable with reaching behind her back, goal progress Progress Towards Goals Progress Towards Goals Progressing Toward Goals Assessment Summary Assessment Patient requires continued skilled PT to help her continue to safely strengthen her shoulder and return her to full active use of her right UE to allow return to all activities and return to work. Physical Therapy Plan Frequency and Duration Frequency of Treatment 2x/Week Duration of Treatment 12 wks Plan of Care Start Date 12/01/19 Plan of Care End Date 02/29/20 Therapeutic Interventions Therapeutic Interventions Aquatic Therapy,Home Exercise Program,Joint Mobilizations, Manual Therapy,Neuromuscular Re-education,Self-Care/Home Management,Therapeutic Activities,Therapeutic Exercises Modalities Cold Pack/Ice Massage,Electric Stimulation,Ultrasound
--- NOTE | 2020-01-12 13:38 | PT.OTN ---
Current Diagnoses Pain in right shoulder (01/12/20) Strain of unspecified muscle, fascia and tendon at shoulder and upper arm level, right arm, initial encounter (01/12/20) Physical Therapy Treatment Note PT-OP-A Visit Information Start: 02/02/19 08:51 Freq: Status: Active Protocol: Document 01/12/20 09:06 SAK (Rec: 01/12/20 09:47 SAK [id number]) Out-Patient Physical Therapy Visit Information Visit Information Visit Type Treatment Note Visit Start Time 09:03 Visit Stop Time 09:46 Total Visit Minutes 43 Visit Number 41 Number of DRAWBRIDGE OPERATOR Visits 0 PT-OP-B Current Condition Start: 02/02/19 08:51 Freq: Status: Active Protocol: Document 12/01/19 13:47 SAK (Rec: 12/01/19 17:08 SAK [id number]) Current Condition History of Current Condition Current Complaints R shoulder pain History of Current Condition Original injury: Chrissy was moving a laundry cart at work and the wheel got caught and her right shoulder was adducted and she felt suddent onset pain. She thought it would go away with time but has been getting worse. 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 She has been noticing clicking in the shoulder that has just started . The pain is worse with overhead movements and is located in the posterior aspect of the glenohumeral joint. She does have a previous back surgery history and has noticed a return of back pain in the last month first thing in the morning and when she is done with work. She has also noticed a pulling in her left foot for the past 3-4 months. Prior Treatments and Tests Underwent arthroscopic surgery right shoulder (no surgery details available; patient reports debreidment) 11/17/[address] Trevizo. Has been wearing sling, is to wean off of sling by 12/05/19; saw doctor for post-op follow-up yesterday. 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 Prior Functional Status Baseline Function- ADL's Independent Baseline Function- Mobility Independent Current Functional Impairments (Reported) Functional Limitations- ADL's severe currently s/p surgery, wearing sling. Patient is right hand dominant PT-OP-C Subjective Start: 02/02/19 08:51 Freq: Status: Active Protocol: Document 01/12/20 09:06 SAK (Rec: 01/12/20 09:47 SAK [id number]) OP-PT Subjective Patient Comments Patient Comments No new c/o. PT-OP-J Posture/Palpation/Skin Start: 02/02/19 08:51 Freq: Status: Active Protocol: Document 12/01/19 13:47 SAK (Rec: 12/01/19 17:08 SAK [id number]) Posture Evaluation Position Sitting Head/C-Spine Posture Forward Head Shoulder Posture (L) Rounded,(R) Rounded,(L) Forward,(R) Forward Skin Assessment Incisional Assessment Incision Appearance/Comments intact, well-healed arthroscopic incisions right shoulder, immature scars, decreased mobility. PT-OP-K Range of Motion Start: 02/02/19 08:51 Freq: Status: Active Protocol: Document 12/01/19 13:47 SAK (Rec: 12/01/19 17:08 SAK [id number]) Cervical Spine Range of Motion Cervical Spine Active Comments WNL Shoulder Goniometric Range of Motion Shoulder Right Passive Testing Position Supine and sitting Flexion 158 Extension 20 Abduction 135 External Rotation at 45 degrees 75 Abduction Internal Rotation 67 Shoulder ROM Limitations Comments active not tested due to lack of shoulder restrictions or protocol from physician Elbow/Forearm Range of Motion Elbow/Forearm ROM Limitations Comments WNL Wrist Goniometric Range of Motion ROM Limitations Comments WNl PT-OP-L Special Tests Start: 02/02/19 08:51 Freq: Status: Active Protocol: Document 02/02/19 09:00 AMB (Rec: 02/02/19 10:31 AMB [id number]) Special Tests Shoulder Special Tests Acuna Yifan Impingement Test Results negative Neer Impingement Test Results positive Lift-Off Rotator Cuff Test Results positive PT-OP-M Strength Start: 02/02/19 08:51 Freq: Status: Active Protocol: Document 12/01/19 13:47 SAK (Rec: 12/01/19 17:08 SAK [id number]) Shoulder Strength Shoulder Manual Muscle Testing Right Comments deferred due to post-op Elbow/Forearm Strength Elbow and Forearm Manual Muscle Testing Right Comments has antigravity flexion Hand Pharmacy Grad Intern/Pinch Strength Hand Dominance Hand Dominance Right PT-OP-Q Treatments Start: 02/02/19 08:51 Freq: Status: Active Protocol: Document 01/12/20 09:06 [facility] (Rec: 01/12/20 09:47 [facility] [id number]) Cardio Equipment Upper Body Ergometer (UBE) Duration (Minutes) 8 RPM 120 Other 4 min f /b Therapeutic Exercises Supine Exercises rhythmic stabilization Equipment Used 55 cm ball chest press Equipment Used 1# Reps/Minutes 10x2 serratus punch Resistance 0, 1# Reps/Minutes 10x, 10x TS ext/roll Supine Exercise Name horizontal spine (TS) Equipment Used foam roller Reps/Minutes x5 Comments cued set up and proper form small range throught TS only pec stretch foam roller Side right Resistance AROM Reps/Minutes 30 secx2 Sidelying Exercises shoulder abd Reps/Minutes 10x Comments 90 to 160, manual facil for correct scapular movement 3 Sidelying Exercise Name sidelying ER Equipment Used 1 #, 2# Reps/Minutes 10x2, 10x1 1 Sidelying Exercise Name Open Books Side bilateral Reps/Minutes 5x each way Comments verbal and tactile cues Standing Exercises 10 Standing Exercise Name horizontal abduction in a bent row position Reps/Minutes 0 wt 2 x 10 reps 9 Standing Exercise Name Bent rows Reps/Minutes 4# sx10 reps TB ext, IR, ER Standing Exercise Name R shld: ext to neutral at alexus, IR, ER w/towel roll Side right Resistance L2 Reps/Minutes 10 x2 each Comments cued slow con/ecc mov't with scap stabilization Scaption Standing Exercise Name facing wall Side right Resistance AROM Reps/Minutes 10 7 Standing Exercise Name Biceps Curls Side bilateral Resistance 7# Equipment Used dumbbell Reps/Minutes 2x10 Manual Therapy Treatment Soft Tissue Mobilization scar massage Body Location surgical scars Mobilization Type Strumming,Sustained Pressure Body Position Hooklying PT-OP-R Modalities Start: 02/02/19 08:51 Freq: Status: Active Protocol: Document 12/01/19 13:47 [facility] (Rec: 12/01/19 17:08 [facility] [id number]) Hot Pack/Cold Pack Treatment Cold Pack Location R GH Patient Position Hooklying Treatment Duration (minutes) 10 PT-OP-T Assessment and Plan Start: 02/02/19 08:51 Freq: Status: Active Protocol: Document 01/12/20 09:06 [facility] (Rec: 01/12/20 09:47 [facility] [id number]) Physical Therapy Assessment Goals Three Impairment pain Longterm Goal (LTG) Chrissy will be able to work 4 hours with 3/10 pain or less. 08/23: Pt has been able to feel clicking but not pain her shoulder when doing overhead activities like washing her bathroom mirror or D2 flexion Tb #2, she has not returned to work yet. 12/10/19 UPDATED POST-OP GOAL: pt. will be able to do all usual ADL's with pain no greater than 2/10 01/10/20: minimal pain 2-3/10, good progress LTG Duration 02/29/20 Two Impairment strength Short Term Goal (STG) Chrissy will increase her strength to 5/5 in all planes. 08/23: improvement made: weakness remains in flexion and external rotation, able to complete FF 3# DB FF to OH unable 5#DB and punch 10 # OH. 11/30/19: UPDATED POST-OP GOAL pt will demonstrate 4/5 muscle strength all shoulder planes 01/10/20: strength 3+/5, goal progrss STG Duration 01/12/20 Longterm Goal (LTG) Chrissy will lift 20 pounds to shoulder height without an increase in baseline pain. 11/30/19 UPDATED POST-OP GOAL: pt. will demonstrate 5/5 muscle strength all planes LTG Duration 02/29/20 One Impairment ROM Short Term Goal (STG) Chrissy will increase abduction AROM to 170 degrees without pain. PROGRESS MADE 08/23: good progress 146* standing, 160* (improvement of 3 *) with report of numbness in fingers into range OH. 11/30/19: POST-OP UPDATED GOAL pt. will be able to reach overhead and behind her back with full ROM with minimal to no pain 01/10/20: able to reach overhead with minimal to no pain, pain variable with reaching behind her back, goal progress Progress Towards Goals Progress Towards Goals Progressing Toward Goals Assessment Summary Assessment increased to level2 theraband, 2# with sidelying shoulder ER , improving scapular stability . Physical Therapy Plan Frequency and Duration Frequency of Treatment 2x/Week Duration of Treatment 12 wks Plan of Care Start Date 12/01/19 Plan of Care End Date 02/29/20 Therapeutic Interventions Therapeutic Interventions Aquatic Therapy,Home Exercise Program,Joint Mobilizations, Manual Therapy,Neuromuscular Re-education,Self-Care/Home Management,Therapeutic Activities,Therapeutic Exercises Modalities Cold Pack/Ice Massage,Electric Stimulation,Ultrasound
--- NOTE | 2020-01-17 10:36 | PT-OP ANOTE ---
cancelled PT appointment due to ill.
--- NOTE | 2020-01-19 16:57 | PT.OTN ---
Current Diagnoses Pain in right shoulder (01/19/20) Strain of unspecified muscle, fascia and tendon at shoulder and upper arm level, right arm, initial encounter (01/19/20) Physical Therapy Treatment Note PT-OP-A Visit Information Start: 02/02/19 08:51 Freq: Status: Active Protocol: Document 01/19/20 10:40 SAK (Rec: 01/19/20 11:14 SAK [id number]) Out-Patient Physical Therapy Visit Information Visit Information Visit Type Treatment Note Visit Start Time 10:40 Visit Stop Time 11:15 Total Visit Minutes 35 Visit Number 42 Number of CHARGE ACCOUNTS AUDIT CLERK Visits 0 PT-OP-B Current Condition Start: 02/02/19 08:51 Freq: Status: Active Protocol: Document 01/19/20 10:40 SAK (Rec: 01/19/20 11:14 SAK [id number]) Current Condition Personal Factors Other Personal Factors That May Effect prior L5S1 discectomy Therapy/Recovery PT-OP-C Subjective Start: 02/02/19 08:51 Freq: Status: Active Protocol: Document 01/19/20 10:40 SAK (Rec: 01/19/20 11:14 SAK [id number]) OP-PT Subjective Patient Comments Patient Comments No new c/o about shoulder, having bad menstrual cramps so hasn't done PT ex. Some muscle soreness in right upper trap region after mixing crab cakes last night. PT-OP-J Posture/Palpation/Skin Start: 02/02/19 08:51 Freq: Status: Active Protocol: Document 12/01/19 13:47 SAK (Rec: 12/01/19 17:08 SAK [id number]) Posture Evaluation Position Sitting Head/C-Spine Posture Forward Head Shoulder Posture (L) Rounded,(R) Rounded,(L) Forward,(R) Forward Skin Assessment Incisional Assessment Incision Appearance/Comments intact, well-healed arthroscopic incisions right shoulder, immature scars, decreased mobility. PT-OP-K Range of Motion Start: 02/02/19 08:51 Freq: Status: Active Protocol: Document 12/01/19 13:47 SAK (Rec: 12/01/19 17:08 SAK [id number]) Cervical Spine Range of Motion Cervical Spine Active Comments WNL Shoulder Goniometric Range of Motion Shoulder Right Passive Testing Position Supine and sitting Flexion 158 Extension 20 Abduction 135 External Rotation at 45 degrees 75 Abduction Internal Rotation 67 Shoulder ROM Limitations Comments active not tested due to lack of shoulder restrictions or protocol from physician Elbow/Forearm Range of Motion Elbow/Forearm ROM Limitations Comments WNL Wrist Goniometric Range of Motion ROM Limitations Comments WNl PT-OP-L Special Tests Start: 02/02/19 08:51 Freq: Status: Active Protocol: Document 02/02/19 09:00 AMB (Rec: 02/02/19 10:31 AMB [id number]) Special Tests Shoulder Special Tests Acuna Yifan Impingement Test Results negative Neer Impingement Test Results positive Lift-Off Rotator Cuff Test Results positive PT-OP-M Strength Start: 02/02/19 08:51 Freq: Status: Active Protocol: Document 12/01/19 13:47 SAK (Rec: 12/01/19 17:08 SAK [id number]) Shoulder Strength Shoulder Manual Muscle Testing Right Comments deferred due to post-op Elbow/Forearm Strength Elbow and Forearm Manual Muscle Testing Right Comments has antigravity flexion Hand Ordnance Technician/Pinch Strength Hand Dominance Hand Dominance Right PT-OP-Q Treatments Start: 02/02/19 08:51 Freq: Status: Active Protocol: Document 01/19/20 10:40 SAK (Rec: 01/19/20 11:14 SAK [id number]) Cardio Equipment Upper Body Ergometer (UBE) Duration (Minutes) 8 RPM 90 Other 4 min f /b Therapeutic Exercises Prone Exercises I, T, Y Equipment Used 55 cm therapy ball Reps/Minutes 10x ea Sidelying Exercises 3 Sidelying Exercise Name sidelying ER Equipment Used 2# Reps/Minutes 10x2 Sitting Exercises lat pull Resistance 20 Reps/Minutes 10x2 Standing Exercises 9 Standing Exercise Name Bent rows Resistance 4# Reps/Minutes 10x2 FF Standing Exercise Name bent elbows Resistance 1# Reps/Minutes 10 x2 Comments ROM to tolerance Scaption Side right Resistance AROM Reps/Minutes 101 7 Standing Exercise Name Biceps Curls Side bilateral Resistance 7# Equipment Used dumbbell Reps/Minutes 2x10 Manual Therapy Treatment Soft Tissue Mobilization scar massage Body Location surgical scars, upper traps, manual pec stretch Mobilization Type Strumming,Sustained Pressure Body Position Hooklying PT-OP-R Modalities Start: 02/02/19 08:51 Freq: Status: Active Protocol: Document 12/01/19 13:47 SAK (Rec: 12/01/19 17:08 SAK [id number]) Hot Pack/Cold Pack Treatment Cold Pack Location R GH Patient Position Hooklying Treatment Duration (minutes) 10 PT-OP-T Assessment and Plan Start: 02/02/19 08:51 Freq: Status: Active Protocol: Document 01/19/20 10:40 [facility] (Rec: 01/19/20 16:57 [facility] [id number]) Physical Therapy Assessment Goals Three Impairment pain Usp Goal (LTG) Chrissy will be able to work 4 hours with 3/10 pain or less. 08/23: Pt has been able to feel clicking but not pain her shoulder when doing overhead activities like washing her bathroom mirror or D2 flexion Tb #2, she has not returned to work yet. 12/10/19 UPDATED POST-OP GOAL: pt. will be able to do all usual ADL's with pain no greater than 2/10 01/10/20: minimal pain 2-3/10, good progress LTG Duration 02/29/20 Two Impairment strength Short Term Goal (STG) Chrissy will increase her strength to 5/5 in all planes. 08/23: improvement made: weakness remains in flexion and external rotation, able to complete FF 3# DB FF to OH unable 5#DB and punch 10 # OH. 11/30/19: UPDATED POST-OP GOAL pt will demonstrate 4/5 muscle strength all shoulder planes 01/10/20: strength 3+/5, goal progrss STG Duration 01/12/20 Industrial Custodian Goal (LTG) Chrissy will lift 20 pounds to shoulder height without an increase in baseline pain. 11/30/19 UPDATED POST-OP GOAL: pt. will demonstrate 5/5 muscle strength all planes LTG Duration 02/29/20 One Impairment ROM Short Term Goal (STG) Chrissy will increase abduction AROM to 170 degrees without pain. PROGRESS MADE 08/23: good progress 146* standing, 160* (improvement of 3 *) with report of numbness in fingers into range OH. 11/30/19: POST-OP UPDATED GOAL pt. will be able to reach overhead and behind her back with full ROM with minimal to no pain 01/10/20: able to reach overhead with minimal to no pain, pain variable with reaching behind her back, goal progress LTG Duration 02/29/20 Progress Towards Goals Progress Towards Goals Progressing Toward Goals Assessment Summary Assessment Continue to improve in activity tolerance and progression of ther ex; good tolerance for prone I's, T's, and Y's over therapy ball and lat pulls. Denied increase in symptoms with ther ex. Improving scapular stabilization. Physical Therapy Plan Frequency and Duration Frequency of Treatment 2x/Week Duration of Treatment 12 wks Plan of Care Start Date 12/01/19 Plan of Care End Date 02/29/20 Therapeutic Interventions Therapeutic Interventions Aquatic Therapy,Home Exercise Program,Joint Mobilizations, Manual Therapy,Neuromuscular Re-education,Self-Care/Home Management,Therapeutic Activities,Therapeutic Exercises Modalities Cold Pack/Ice Massage,Electric Stimulation,Ultrasound Next Visit Focus/Plan Next Note Type Treatment Note Next Visit Plan add 1# to I's, T's, and Y's, further exercise progression for right shoulder rehab s/p RC repair.
--- NOTE | 2020-01-19 17:01 | PT.OPPN ---
Current Diagnoses Pain in right shoulder (01/19/20) Strain of unspecified muscle, fascia and tendon at shoulder and upper arm level, right arm, initial encounter (01/19/20) Physical Therapy Progress Note PT-OP-A Visit Information Start: 02/02/19 08:51 Freq: Status: Active Protocol: Document 01/19/20 10:40 SAK (Rec: 01/19/20 11:14 SAK [id number]) Out-Patient Physical Therapy Visit Information Visit Information Visit Type Treatment Note Visit Start Time 10:40 Visit Stop Time 11:15 Total Visit Minutes 35 Visit Number 42 Number of MATERIAL PLANNER Visits 0 PT-OP-B Current Condition Start: 02/02/19 08:51 Freq: Status: Active Protocol: Document 01/19/20 10:40 SAK (Rec: 01/19/20 11:14 SAK [id number]) Current Condition Personal Factors Other Personal Factors That May Effect prior L5S1 discectomy Therapy/Recovery PT-OP-C Subjective Start: 02/02/19 08:51 Freq: Status: Active Protocol: Document 01/19/20 10:40 SAK (Rec: 01/19/20 11:14 SAK [id number]) OP-PT Subjective Patient Comments Patient Comments No new c/o about shoulder, having bad menstrual cramps so hasn't done PT ex. Some muscle soreness in right upper trap region after mixing crab cakes last night. PT-OP-J Posture/Palpation/Skin Start: 02/02/19 08:51 Freq: Status: Active Protocol: Document 12/01/19 13:47 SAK (Rec: 12/01/19 17:08 SAK [id number]) Posture Evaluation Position Sitting Head/C-Spine Posture Forward Head Shoulder Posture (L) Rounded,(R) Rounded,(L) Forward,(R) Forward Skin Assessment Incisional Assessment Incision Appearance/Comments intact, well-healed arthroscopic incisions right shoulder, immature scars, decreased mobility. PT-OP-K Range of Motion Start: 02/02/19 08:51 Freq: Status: Active Protocol: Document 12/01/19 13:47 SAK (Rec: 12/01/19 17:08 SAK [id number]) Cervical Spine Range of Motion Cervical Spine Active Comments WNL Shoulder Goniometric Range of Motion Shoulder Measured in Degrees Right Passive Testing Position Supine and sitting Flexion 158 Extension 20 Abduction 135 External Rotation at 45 degrees 75 Abduction Internal Rotation 67 Shoulder ROM Limitations Comments active not tested due to lack of shoulder restrictions or protocol from physician Elbow/Forearm Range of Motion Elbow/Forearm ROM Limitations Comments WNL Wrist Goniometric Range of Motion ROM Limitations Comments WNl PT-OP-L Special Tests Start: 02/02/19 08:51 Freq: Status: Active Protocol: Document 02/02/19 09:00 AMB (Rec: 02/02/19 10:31 AMB [id number]) Special Tests Shoulder Special Tests Acuna Yifan Impingement Test Results negative Neer Impingement Test Results positive Lift-Off Rotator Cuff Test Results positive PT-OP-M Strength Start: 02/02/19 08:51 Freq: Status: Active Protocol: Document 12/01/19 13:47 SAK (Rec: 12/01/19 17:08 SAK [id number]) Shoulder Strength Shoulder Manual Muscle Testing Right Comments deferred due to post-op Elbow/Forearm Strength Elbow and Forearm Manual Muscle Testing Right Comments has antigravity flexion Hand Deck Molder/Pinch Strength Hand Dominance Hand Dominance Right PT-OP-T Assessment and Plan Start: 02/02/19 08:51 Freq: Status: Active Protocol: Document 01/19/20 10:40 SAK (Rec: 01/19/20 16:57 SAK [id number]) Physical Therapy Assessment Goals Three Impairment pain Manager Technical Sales Goal (LTG) Chrissy will be able to work 4 hours with 3/10 pain or less. 08/23: Pt has been able to feel clicking but not pain her shoulder when doing overhead activities like washing her bathroom mirror or D2 flexion Tb #2, she has not returned to work yet. 12/10/19 UPDATED POST-OP GOAL: pt. will be able to do all usual ADL's with pain no greater than 2/10 01/10/20: minimal pain 2-3/10, good progress LTG Duration 02/29/20 Two Impairment strength Short Term Goal (STG) Chrissy will increase her strength to 5/5 in all planes. 08/23: improvement made: weakness remains in flexion and external rotation, able to complete FF 3# DB FF to OH unable 5#DB and punch 10 # OH. 11/30/19: UPDATED POST-OP GOAL pt will demonstrate 4/5 muscle strength all shoulder planes 01/10/20: strength 3+/5, goal progrss STG Duration 01/12/20 Alf Goal (LTG) Chrissy will lift 20 pounds to shoulder height without an increase in baseline pain. 11/30/19 UPDATED POST-OP GOAL: pt. will demonstrate 5/5 muscle strength all planes LTG Duration 02/29/20 One Impairment ROM Short Term Goal (STG) Chrissy will increase abduction AROM to 170 degrees without pain. PROGRESS MADE 08/23: good progress 146* standing, 160* (improvement of 3 *) with report of numbness in fingers into range OH. 11/30/19: POST-OP UPDATED GOAL pt. will be able to reach overhead and behind her back with full ROM with minimal to no pain 01/10/20: able to reach overhead with minimal to no pain, pain variable with reaching behind her back, goal progress LTG Duration 02/29/20 Progress Towards Goals Progress Towards Goals Progressing Toward Goals Assessment Summary Assessment Continue to improve in activity tolerance and progression of ther ex; good tolerance for prone I's, T's, and Y's over therapy ball and lat pulls. Denied increase in symptoms with ther ex. Improving scapular stabilization. Physical Therapy Plan Frequency and Duration Frequency of Treatment 2x/Week Duration of Treatment 12 wks Plan of Care Start Date 12/01/19 Plan of Care End Date 02/29/20 Therapeutic Interventions Therapeutic Interventions Aquatic Therapy,Home Exercise Program,Joint Mobilizations, Manual Therapy,Neuromuscular Re-education,Self-Care/Home Management,Therapeutic Activities,Therapeutic Exercises Modalities Cold Pack/Ice Massage,Electric Stimulation,Ultrasound Next Visit Focus/Plan Next Note Type Treatment Note Next Visit Plan add 1# to I's, T's, and Y's, further exercise progression for right shoulder rehab s/p RC repair.
--- NOTE | 2020-02-15 08:09 | PT-OP ANOTE ---
cancelled due to infection
--- NOTE | 2020-02-29 09:31 | PT.OPDS ---
Current Diagnoses Pain in right shoulder (01/19/20) Strain of unspecified muscle, fascia and tendon at shoulder and upper arm level, right arm, initial encounter (01/19/20) Visit Care Team Role Provider Type Kirk Holland MD Attending Provider Physician Primary Care Provider Specialty: Family Practice Address: [address] [place] [address], [facility], [address] Email: [email or web address] Visit Number Visit Number 42 Discharge Summary PT-OP-B Current Condition Start: 02/02/19 08:51 Freq: Status: Active Protocol: Document 01/19/20 10:40 SAK (Rec: 01/19/20 11:14 SAK [id number]) Current Condition Personal Factors Other Personal Factors That May Effect prior L5S1 discectomy Therapy/Recovery PT-OP-C Subjective Start: 02/02/19 08:51 Freq: Status: Active Protocol: Document 01/19/20 10:40 SAK (Rec: 01/19/20 11:14 SAK [id number]) OP-PT Subjective Patient Comments Patient Comments No new c/o about shoulder, having bad menstrual cramps so hasn't done PT ex. Some muscle soreness in right upper trap region after mixing crab cakes last night. PT-OP-J Posture/Palpation/Skin Start: 02/02/19 08:51 Freq: Status: Active Protocol: Document 12/01/19 13:47 SAK (Rec: 12/01/19 17:08 SAK [id number]) Posture Evaluation Position Sitting Head/C-Spine Posture Forward Head Shoulder Posture (L) Rounded,(R) Rounded,(L) Forward,(R) Forward Skin Assessment Incisional Assessment Incision Appearance/Comments intact, well-healed arthroscopic incisions right shoulder, immature scars, decreased mobility. PT-OP-K Range of Motion Start: 02/02/19 08:51 Freq: Status: Active Protocol: Document 12/01/19 13:47 SAK (Rec: 12/01/19 17:08 SAK [id number]) Cervical Spine Range of Motion Cervical Spine Active Comments WNL Shoulder Goniometric Range of Motion Shoulder Right Passive Testing Position Supine and sitting Flexion 158 Extension 20 Abduction 135 External Rotation at 45 degrees 75 Abduction Internal Rotation 67 Shoulder ROM Limitations Comments active not tested due to lack of shoulder restrictions or protocol from physician Elbow/Forearm Range of Motion Elbow/Forearm ROM Limitations Comments WNL Wrist Goniometric Range of Motion ROM Limitations Comments WNl PT-OP-L Special Tests Start: 02/02/19 08:51 Freq: Status: Active Protocol: Document 02/02/19 09:00 AMB (Rec: 02/02/19 10:31 AMB [id number]) Special Tests Shoulder Special Tests Acuna Yifan Impingement Test Results negative Neer Impingement Test Results positive Lift-Off Rotator Cuff Test Results positive PT-OP-M Strength Start: 02/02/19 08:51 Freq: Status: Active Protocol: Document 12/01/19 13:47 SAK (Rec: 12/01/19 17:08 SAK [id number]) Shoulder Strength Shoulder Manual Muscle Testing Right Comments deferred due to post-op Elbow/Forearm Strength Elbow and Forearm Manual Muscle Testing Right Comments has antigravity flexion Hand Electrical Laboratory Technician/Pinch Strength Hand Dominance Hand Dominance Right PT-OP-T Assessment and Plan Start: 02/02/19 08:51 Freq: Status: Active Protocol: Document 02/29/20 09:29 SAK (Rec: 02/29/20 09:31 SAK [id number]) Physical Therapy Plan Discharge Physical Therapy Discharge Comments Multiple cancellations, not following POC or department attendance policy.
== END 2020-03-02 14:01 ==
LOC: PHYS 10:30
PROVIDERS: PCP Family Medicine; Visit Provider Family Medicine
DX: S46.911A Strain of unspecified muscle, fascia and tendon at shoulder and upper arm level, right arm, initial encounter (principal); M25.511 Pain in right shoulder
CPT/HCPCS: 97010; 97110; 97140; 97161; 97164

== ENCOUNTER → 2020-02-03 07:05 | Outpatient (CLI) | payer OTHER, MEDICAID, SELFPAY ==
--- NOTE | 2020-02-03 | DI.US.S_ITS ---
PROCEDURE: US PELVIC COMPLETE INDICATIONS: PAIN TECHNIQUE: Real-time scanning was performed of the pelvic organs, with image documentation. Additional endovaginal scanning was necessary due to incomplete visualization of the adnexal and endometrial structures by transabdominal scanning. COMPARISON: [facility], CT, ABDOMEN/PELVIS WITH CONTRAST, 07/27/2014, 22:22. [facility], US, US PELVIC COMPLETE, 12/17/2018, 9:25. [facility], , US PELVIC COMPLETE, 03/18/2019, 9:18. FINDINGS: Transabdominal scanning: Limited scanning through the kidneys shows no hydronephrosis. No pathologic free abdominal or pelvic fluid. Endovaginal scanning: Uterus: Uterus is normal in size at 8.8 x 4.1 x 5.2 cm. The endometrium measures 4 mm in combined thickness. An IUD is seen at its expected location. Ovaries: The right ovary measures 3.7 x 2 x 1.8 cm. The left ovary measures 3.5 x 2.1 x 2 cm. The ovaries have a normal sonographic appearance. No adnexal masses are seen. IMPRESSION: Unremarkable pelvic ultrasound, without an imaging explanation found for the patient's presenting history of pain. An IUD can be seen at its expected location. Dictated by: Dominik Simpson M.D. on 02/03/2020 at 12:18 Approved by: Dominik Simpson M.D. on 02/03/2020 at 12:19
== END ==
PROVIDERS: PCP Family Medicine; Referring Provider Family Medicine; Visit Provider Family Medicine
DX: R10.2 Pelvic and perineal pain (principal); Z97.5 Presence of (intrauterine) contraceptive device
CPT/HCPCS: 76830; 76856

== ENCOUNTER → 2020-06-13 14:27 | Outpatient (CLI) | payer OTHER, MEDICAID, SELFPAY ==
--- NOTE | 2020-06-13 | DI.RAD.S_ITS ---
PROCEDURE: XR CERVICAL SPINE 2V OR 3V INDICATIONS: NECK PAIN/shoulder injury TECHNIQUE: 4 view(s) of the cervical spine were acquired. COMPARISON: None. FINDINGS: Bones: No fracture. Straightening of the normal lordotic curvature. Multilevel degenerative endplate sclerosis and spurring. Diffuse facet arthropathy. The disc spaces appear grossly preserved. Soft tissues: No prevertebral soft tissue swelling. IMPRESSION: Straightening of the normal lordotic curvature. Dictated by: Ignacio Foley M.D. on 06/13/2020 at 16:12 Approved by: Ignacio Foley M.D. on 06/13/2020 at 16:13
== END ==
PROVIDERS: PCP Family Medicine; Referring Provider Family Medicine; Visit Provider Family Medicine
DX: M54.2 Cervicalgia (principal); S49.90XA Unspecified injury of shoulder and upper arm, unspecified arm, initial encounter
CPT/HCPCS: 72040

== ENCOUNTER → 2020-07-30 08:09 | Outpatient (CLI) | payer OTHER, MEDICAID, SELFPAY ==
--- NOTE | 2020-07-30 08:12 | DI.US.S_ITS ---
PROCEDURE: US ABDOMEN COMPLETE INDICATIONS: UPPER ABDOMINAL PAIN/POST PRANDIAL BLOATING. TECHNIQUE: Real-time scanning was performed of the abdominal and retroperitoneal organs, with image documentation. COMPARISON: None. FINDINGS: Liver: Liver is normal in size and homogeneous in echotexture, diffusely hyperechoic consistent with fatty infiltration. Flow direction within the portal vein is normal. Gallbladder: Within the gallbladder lumen there is a small hyperechoic focus measuring 3 x 3 x 4 mm, mucosal level, consistent with small polyps. Biliary ducts: Intrahepatic bile ducts are non-dilated. Extrahepatic bile duct caliber measures 4.7 mm. Normal is 6-7 mm or less in diameter, or 10 mm or less post-cholecystectomy. Pancreas: Visualized portions of the pancreas are sonographically normal. Spleen: Spleen is normal in size and homogeneous in echotexture. Kidneys: Kidneys are normal in size and echotexture. Right kidney measures 10.6 cm long; left kidney measures 11.7 cm long. No hydronephrosis or nephrolithiasis. No solid masses. Aorta: Visualized aorta is normal in caliber at less than 3 cm. Iliacs: Proximal common iliac arteries are normal in caliber at less than 2.5 cm. IVC: Intrahepatic inferior vena cava is patent. Miscellaneous: No free abdominal fluid. Bowel gas is relatively prominent in this patient. IMPRESSION: Fatty infiltration within the liver causing increased echotexture. Note is made of a small 3 x 3 x 4 mm gallbladder polyp. No gallstones found. Bile ducts normal in caliber. Depending on the clinical status follow-up by CT scanning may become necessary. Dictated by: Skinny Laird M.D. on 07/30/2020 at 10:59 Approved by: Skinny Laird M.D. on 07/30/2020 at 11:01
== END ==
PROVIDERS: PCP Family Medicine; Referring Provider Specialist; Visit Provider Specialist
DX: R14.0 Abdominal distension (gaseous) (principal); R10.10 Upper abdominal pain, unspecified; K76.0 Fatty (change of) liver, not elsewhere classified; K82.4 Cholesterolosis of gallbladder
CPT/HCPCS: 76700

== ENCOUNTER → 2020-08-06 10:20 | Outpatient (CLI) | payer OTHER, MEDICAID, SELFPAY ==
[2020-08-06 12:02] LABS: COVID19 -Nasal RAPID Negative (Negative)
== END ==
PROVIDERS: PCP Family Medicine; Visit Provider Specialist
DX: Z20.822 Contact with and (suspected) exposure to COVID-19 (principal)
CPT/HCPCS: 87635; C9803

== ENCOUNTER 2020-08-07 06:47 | Day surgery (SDC) | payer OTHER, MEDICAID, SELFPAY ==
[2020-08-07] VITALS (7 sets, daily range): BP systolic 108–152; BP diastolic 74–94; PULSE 74–96; RESP 14–18; TEMP 36.3–36.7; O2SAT 94–100; BMI 36.3
[2020-08-07] MEDS: LACTATED RINGERS 1,000 ML 200 ML IV (07:24)
--- NOTE | 2020-08-07 07:32 | PM.PREOP ---
Pre-operative Note COVID-19 COVID-19 status: Negative Result date/Date tested (Pos, Neg/Pending): 08/06/20 Interval Note History & Physical reviewed/Exam performed by Physician: Yes Changes to H&P: No ASA Class (for procedural sedation): I
[2020-08-07] MEDS: LIDOCAINE 4% SOLN 50 ML 20 ML TOP (07:50)
[2020-08-07] MEDS: MIDAZOLAM 5 MG/5 ML VIAL IV (07:59)
[2020-08-07] MEDS: fentaNYL 250 MCG/5 ML INJ IV (07:59)
--- NOTE | 2020-08-07 08:12 | PM.OP.ENDO ---
Operative Date/Time/Diagnoses Date of procedure: 08/07/20 Time of procedure: 08:12 Pre-op diagnosis: Epigastric pain not responsive to double dose proton pump inhibitor. Gallbladder ultrasound not suggestive of biliary tract disease as source of pain Post-op diagnosis: same (Huge hiatal hernia) Procedure & Clinicians Study performed: EGD Same procedure as scheduled: Yes Indications: Determine cause of epigastric pain Surgeon: Ayden Stevenson Procedure Notes SCOAP/Timeout: Performed Procedure in detail: The patient had topical anesthetic applied to oropharynx. She was placed in left lateral decubitus position and underwent IV sedation directed by the surgeon consisting of fentanyl and Versed. A bite block was inserted and the scope was advanced through it into the esophagus. The esophagus was unremarkable. GE junction was noted at 40 cm from the incisors. I initially had difficulty inflating the stomach the seeing. I suddenly found myself looking at the pyloric channel. The pyloric channel was patent. The duodenal bulb was normal. The turn however into the 2nd part of the duodenum was distorted. It was very difficult to make the turn but ultimately I succeeded. The scope then passed into the 3rd and 4th parts the duodenum by advancing it instead of the usual technique of backing it out to get the scope to advance. The scope was slowly brought back through the duodenum. Other than the unusual turn into the 2nd part of the duodenum there were no other findings. The scope was brought back into the stomach and it was examined. No lesions were seen. However on retroflexed view the proximal stomach was somewhat shortened and there was a large hiatal hernia.. The scope was straightened and brought into the hiatal hernia. It was quite large at about 7 cm. It appeared to me that more of the stomach was in the chest than the abdomen. The GE junction of however was noted to be in the normal location. No ulcers or other lesions were seen. The scope was removed and the patient tolerated the procedure well. Scope withdrawal time: Not applicable Sedation minutes: 12 Findings: hiatal hernia (Large) Specimen(s): none sent Complications: none Post-procedure Plan for aftercare: Will probably require surgery Follow up: weeks (2) Disposition: PACU
[2020-08-07] MEDS: ONDANSETRON 4 MG/2 ML INJ IV (08:28)
== END 2020-08-07 08:55 | disposition home or self-care (01) ==
PROVIDERS: PCP Family Medicine; Referring Provider Family Medicine; Visit Provider Specialist
PROC: 0DJ08ZZ Inspection of Upper Intestinal Tract, Via Natural or Artificial Opening Endoscopic (ICD-10-PCS; CPT 43235; principal; 2020-08-07 07:45)
DX: K44.9 Diaphragmatic hernia without obstruction or gangrene (principal); R12 Heartburn; F17.210 Nicotine dependence, cigarettes, uncomplicated; F41.9 Anxiety disorder, unspecified; F32.9 Major depressive disorder, single episode, unspecified
CPT/HCPCS: 43235; 99152; J2250; J2405; J3010

== ENCOUNTER → 2020-11-14 17:09 | Outpatient (CLI) | payer OTHER, MEDICAID, SELFPAY ==
--- NOTE | 2020-11-14 | DI.RAD.S_ITS ---
PROCEDURE: XR KUB INDICATIONS: paraesophageal hernia, GERD TECHNIQUE: One view of the abdomen acquired. COMPARISON: None. FINDINGS: Surgical changes and devices: None. Bowel: Bowel gas pattern is normal. Soft tissues: No suspicious abdominal calcifications. Visualized solid organ contours appear normal in size. Bones: No suspicious bony lesions. Intrauterine device projects over the mid pelvis. IMPRESSION: No acute disease process identified by plain film radiograph. Dictated by: Rachelle Beltran MD, PhD on 11/15/2020 at 14:05 Approved by: Rachelle Beltran MD, PhD on 11/15/2020 at 14:06
== END ==
PROVIDERS: Referring Provider Nurse Practitioner Acute Care; Visit Provider Nurse Practitioner Acute Care
DX: K44.9 Diaphragmatic hernia without obstruction or gangrene (principal); K21.9 Gastro-esophageal reflux disease without esophagitis
CPT/HCPCS: 74018

== ENCOUNTER → 2020-11-15 12:55 | Outpatient (CLI) | payer OTHER, MEDICAID, SELFPAY ==
--- NOTE | 2020-11-15 | DI.RAD.S_ITS ---
PROCEDURE: FL BARIUM SWALLOW INDICATIONS: Diaphragmatic hernia without obstruction or gangre COMPARISON: None. FINDINGS: Function: There is mild esophageal dysmotility with loss of the primary wave. No elicited gastroesophageal reflux. Morphology: Air-contrast images demonstrate normal mucosal morphology. Single contrast views show no esophageal strictures, extrinsic mass effects, or diverticula. Limited images of the stomach demonstrate normal appearance. IMPRESSION: 1. Mild esophageal dysmotility. 2. Otherwise negative esophagram. Dictated by: Tova Quinn M.D. on 11/15/2020 at 16:23 Approved by: Tova Quinn M.D. on 11/15/2020 at 16:23
== END ==
PROVIDERS: PCP Family Medicine; Referring Provider Nurse Practitioner Acute Care; Visit Provider Nurse Practitioner Acute Care
DX: K44.9 Diaphragmatic hernia without obstruction or gangrene (principal); K21.9 Gastro-esophageal reflux disease without esophagitis
CPT/HCPCS: 74220

== ENCOUNTER → 2020-11-15 16:30 | Outpatient (CLI) | payer OTHER, MEDICAID, SELFPAY ==
--- NOTE | 2020-11-15 16:33 | DIET.PN ---
Dietary Progress Note Assessment: 30[address] visit for dietary reccs for hiatal hernia. Pt has had sx of heartburn and fullness for past 8y beginning during and after of son (100# weight gain during ) recently found to have hiatal hernia. Since EGD (08/05) pt has been experiencing dumping syndrome (get sick, feels flushed, like is going to vomit, urgent liquid stool with sometimes needing a shower). Pt had several stool sample tests which all came back negative. She sometimes vomits but when she does its only stomach acid with no food particles. Sx most severe after eating, especially higher fat and sugar items. 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 Pt always leaves one bathroom to clean last in case she needs to have BM. Okay Foods: Chicken, venison, elk, austrian non-fat yogurt, bread, nuts, apple, spinach, peas, corn, sweet potatoes, white potatoes, squash, [place] sprouts, tea okay, Small amount of smoothie (banana frozen sravani peaches strawberries blueberries) Negative reactions to: onions, cheese, chocolate, carbonation, coffee, citrus, salami, full fat dairy Usual Day: wakes drinks water drinks tea energy drink goes to work at 6pm midnight snacks on baked chickpeas, Skinny pop, seaweed snacks, lots of bread (naan, flatbread, sourdough, sliced, sweet rolls) goes home and tries to eat chicken daily goes to bed has 2-3 BMs before work Every week or every other week pt tries to test foods and has bad reaction leading to diarrhea and often causes her to miss work. Pt avoids eating before work to keep from having an accident. Pt avoids going on road trips and going to the park. Pt is having sx of dumping syndrome with liquid diarrhea, tried Immodium once and got stopped up for 3d, is successfully using Banantrol flakes for some texture of stools. A year ago pt attempted weight loss by consuming high protein diet, lost 50#, gained again, then lost 18#, had EGD in July and has been weight stable since. Pt does not qualify for bariatric surgery covered by insurance and would prefer to lose weight through diet and exercise. Pt is going to hernia clinic on November 23 hopefully to get prepared for a surgery to fix hiatal hernia. Nutrition Diagnosis: Altered GI function r/t hiatal hernia aeb pt has near consistent GERD sx c pressure in chest, inability to eat normal volume food, pt experiencing dumping syndrome leading to feeling sick and fecal urgency, EGD showing evidence of hiatal hernia. RD Impression: Pt presenting c hiatal hernia causing her significant distress in daily living both activity bai and nutritionally. Interventions: 1. Pt purchased gastric sleeve cookbook which she has been using with good results. If pt keeps fat, sugar, and total volume low, her sx are manageable, however pt would like more variety in her diet and to be able to eat socially without worry of fecal urgency. Discussed continuing these recipes until after hiatal hernia is fixed. Stressed importance of relying less on bread and more on the approved protein foods and vegetables for good health. 2. Provided pt handouts on tips for early satiety and examples of healthy foods which should be tolerated for now. Diet Order: low fat, avoid heartburn causing foods Monitoring/Evaluations: f/u as needed to manage sx
== END ==
PROVIDERS: PCP Family Medicine; Referring Provider Specialist; Visit Provider Specialist
DX: K44.9 Diaphragmatic hernia without obstruction or gangrene (principal); R12 Heartburn; K31.89 Other diseases of stomach and duodenum; Z71.3 Dietary counseling and surveillance
CPT/HCPCS: 97802

== ENCOUNTER → 2020-12-19 06:40 | Outpatient (CLI) | payer OTHER, MEDICAID, SELFPAY ==
--- NOTE | 2020-12-19 | DI.MRI.S_ITS ---
PROCEDURE: MR LUMBAR SPINE WO CON INDICATIONS: Lumbago with sciatica, right side TECHNIQUE: Noncontrast sagittal T1 spin echo and T2 fast echo, sagittal STIR, axial T1 and T2 fast spin echo through the lumbar spine. In cases with scoliosis, additional coronal T2 fast spin echo may be performed. COMPARISON: [facility], CR, XR LUMBAR SPINE FLEXION EXTENSION, 07/09/2017, 11:42. [facility], MR, L-SPINE WITHOUT CONTRAST, 06/18/2017, 18:04. FINDINGS: Image quality: Excellent. Alignment and Curvature: There is normal bony alignment. Bone Marrow: Marrow is of normal overall signal. No acute vertebral body compression fractures. Spinal Cord: Conus medullaris terminates at the L1 level. Visualized cord demonstrates normal signal and size. Paraspinous Soft Tissues: No paravertebral masses. T12-L1: Normal appearance. L1-L2: Normal appearance. L2-L3: Normal appearance. L3-L4: Normal appearance. L4-L5: The disc height is well-preserved. Loss of disc signal is seen at this level. Mild disc bulge is seen, with a central/left disc protrusion. There is at least moderate facet hypertrophy seen. There is [id number] right-sided and moderate left-sided neural foraminal narrowing seen. Mild central canal narrowing is seen. Compared to 2018, these degenerative changes are progressed. L5-S1: Moderate loss of disc height is seen. Loss of disc signal is seen. Mild to moderate disc bulge is seen, with a central/right disc extrusion. There is an associated annular fissure seen. Moderate facet joint hypertrophy is seen. There is [id number] left-sided and moderate right-sided neural foraminal narrowing seen. Moderate central canal narrowing is seen. The disc extrusion is improved compared to 2018. IMPRESSION: At L5-S1, there is a central/right disc extrusion, which is improved compared to 2018. There has been interval progression of degenerative change at L4-L5. Dictated by: Dominik Simpson M.D. on 12/19/2020 at 9:28 Approved by: Dominik Simpson M.D. on 12/19/2020 at 9:32
== END ==
PROVIDERS: PCP Family Medicine; Referring Provider Family Medicine; Visit Provider Family Medicine
DX: M51.17 Intervertebral disc disorders with radiculopathy, lumbosacral region (principal); M47.26 Other spondylosis with radiculopathy, lumbar region
CPT/HCPCS: 72148

== ENCOUNTER → 2020-12-20 16:36 | Outpatient (CLI) | payer OTHER, MEDICAID, SELFPAY ==
--- NOTE | 2020-12-25 14:09 | DIET.PN ---
Dietary Progress Note 30y F attending nutrition f/u after visit at hernia clinic. Per testing at hernia clinic pt does have signs of acid reflux but provider did not feel pt had hernia and should be worked up for IBS/IBD. Per surgeon note three years ago, pt had huge hernia which needed operative management. Pt comes in confused as she is having pain under left rib and continues to have dumping syndrome when eating wide variety of foods including higher fat options like Keto Snacks (coconut, macadamia, almond trail mix). Pt states her sx started Jul 2019 after what she feels was Covid19 virus and a bout with a chicken-related bacterial infection requiring the health department to follow up with her about. Pt states she will need referral to GI specialist but the process has not begun. Pt is working closely c her PCP on referral process. Interventions: Discussed a variety of nutrition interventions to help with sx management until pt can get more clear picture of dx from medical provider. Pt has tried acid watchers diet with little help, though she does avoid many high acid foods. Pt tends to tolerate gluten and dairy well and does not feel typical FODMAPS cause her dumping sx. Pt continues to avoid eating at work secondary to unpredictable watery diarrhea. Discussed importance of protein in diet and micronutrients secondary to pts current restrictive diet. Pt is interested in trying an AIP diet (autoimmune protocol diet) as her spouse has . Educated pt on ensuring nutritional adequacy while following AIP and to continue logging her diet and sx daily. Any elimination type diet is meant to be short term with goal of sx management and reintroducing as many foods as possible for the most liberal, nourishing diet possible. F/U in 4w to assess tolerance to AIP diet and assess for reintroduction.
== END ==
PROVIDERS: PCP Family Medicine; Referring Provider Family Medicine; Visit Provider Family Medicine
DX: K91.1 Postgastric surgery syndromes (principal); R07.81 Pleurodynia; K21.9 Gastro-esophageal reflux disease without esophagitis; Z71.3 Dietary counseling and surveillance
CPT/HCPCS: 97803

== ENCOUNTER → 2020-12-31 17:09 | Outpatient (CLI) | payer OTHER, MEDICAID, SELFPAY ==
--- NOTE | 2020-12-31 17:12 | DI.RAD.S_ITS ---
PROCEDURE: XR LUMBAR SPINE MIN 4V INDICATIONS: LOW BACK PAIN WITH SCIATICA TECHNIQUE: 5 views of the lumbar spine were acquired, including bilateral oblique views. COMPARISON: [facility], , L-SPINE 2-3 VIEWS, 09/01/2017, 10:04. FINDINGS: Bones: 5 nonrib-bearing vertebrae are present. There is normal bony alignment. No vertebral body compression fractures. No suspicious bony lesions. Moderate degenerative disc disease is seen at L5-S1 with facet osteoarthritis mild at L4-5 and moderate at L5-S1. Soft tissues: Overlying bowel gas pattern is normal. No suspicious soft tissue calcifications. Oblique images: No pars defects. IMPRESSION: Prior spine surgery L5-S1 from intraoperative imaging 09/01/17. Degenerative disc disease is moderate at L5-S1 on the current study but has not appreciably worsened and no subluxation or compression fracture has developed Dictated by: Skinny Laird M.D. on 01/01/2021 at 9:12 Approved by: Skinny Laird M.D. on 01/01/2021 at 9:13
== END ==
PROVIDERS: PCP Family Medicine; Referring Provider Family Medicine; Visit Provider Family Medicine
DX: M51.17 Intervertebral disc disorders with radiculopathy, lumbosacral region (principal); M47.26 Other spondylosis with radiculopathy, lumbar region; M47.27 Other spondylosis with radiculopathy, lumbosacral region
CPT/HCPCS: 72110

== ENCOUNTER → 2021-01-10 11:30 | Outpatient (CLI) | payer OTHER, MEDICAID, SELFPAY | PROVIDERS: PCP Family Medicine; Referring Provider Family Medicine; Visit Provider Family Medicine | DX: M54.41 Lumbago with sciatica, right side (principal) | CPT/HCPCS: 95886; 95909 ==

== ENCOUNTER 2021-02-02 05:42 | Emergency (ER) | payer OTHER, MEDICAID, SELFPAY ==
[2021-02-02 05:49] VITALS: BP 143/92; PULSE 71; RESP 15; TEMP 36.3; O2SAT 99; BMI 33.8
--- NOTE | 2021-02-02 05:53 | DI.RAD.S_ITS ---
PROCEDURE: XR HAND RT MIN 3V INDICATIONS: middle finger pain TECHNIQUE: 3 views of the hand(s) acquired. COMPARISON: None. FINDINGS: Bones: No fractures or dislocations. Carpal bones are normally aligned. No suspicious bony lesions. Soft tissues: No suspicious soft tissue calcifications. IMPRESSION: Normal hand plain films acute abnormality seen. Note: No significant discrepancy from the preliminary report. Dictated by: Dominik Simpson M.D. on 02/02/2021 at 7:05 Approved by: Dominik Simpson M.D. on 02/02/2021 at 7:05
--- NOTE | 2021-02-02 05:53 | DI.RAD.S_ITS ---
PROCEDURE: XR HAND LT MIN 3V INDICATIONS: injury TECHNIQUE: 3 views of the hand(s) acquired. COMPARISON: [facility], CR, XR HAND RT MIN 3V, 02/02/2021, 5:59. FINDINGS: Bones: No fractures or dislocations. Carpal bones are normally aligned. No suspicious bony lesions. Soft tissues: No suspicious soft tissue calcifications. IMPRESSION: No displaced fractures are seen. Note: No significant discrepancy from the preliminary report. Dictated by: Dominik Simpson M.D. on 02/02/2021 at 7:03 Approved by: Dominik Simpson M.D. on 02/02/2021 at 7:04
--- NOTE | 2021-02-02 05:54 | ED_ITS ---
HPI - Fall General Chief Complaint: Fall Stated Complaint: swollen hands, severe bruising (L&I) Time Seen by Provider: 02/02/21 05:53 Source: patient Mode of arrival: Ambulatory History of Present Illness HPI Narrative: Patient is a 30-year-old female who presents with bilateral hand pain. 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 Her right middle finger seems to hurt the worst. Her left hand is bruised. She worked in this evening and pain seems to be worse. No numbness tingling or weakness. She said left wrist sort of hurt but now feels a lot better. No other injury. Related Data Home Medications Medication Instructions Recorded Confirmed fluoxetine 10 mg capsule (Prozac) 10 mg PO DAILY 07/25/20 08/23/20 lactobacillus combination no.9 4 PO 07/25/20 08/23/20 billion cell capsule (Adult 50 Plus Probiotic) lorazepam 0.5 mg tablet (Ativan) 0.5 mg PO DAILY PRN 07/25/20 08/23/20 mecobalamin (vitamin B12) 10,000 mcg SUBCUT 07/25/20 08/23/20 mcg solution for injection omeprazole magnesium 20 mg 20 mg PO DAILY 07/25/20 08/23/20 tablet,delayed release (Prilosec OTC) turmeric 400 mg capsule mg PO 07/25/20 08/23/20 Previous Rx's Medication Instructions Recorded ondansetron HCl 4 mg tablet 4 mg PO Q8H PRN #20 tab 08/23/20 (Zofran) Allergies Allergy/AdvReac Type Severity Reaction Status Date / Time hydrocodone [HYDROCODONE] Allergy Severe ITCHING Unverified 08/23/20 09:47 Inhaled Anesthetics (Halogen Allergy Unknown Verified 08/23/20 09:47 Based) Review of Systems Review of Systems Narrative: GENERAL: Denies chills,fever HEENT: Denies throat pain RESPIRATORY: Denies dyspnea, cough, wheezing CARDIOVASCULAR: Denies chest pain, palpitations GASTROINTESTINAL: Denies nausea, vomiting MUSCULOSKELETAL: See HPI SKIN: No rash, no laceration, no pruritus NEUROLOGIC: Denies weakness, dizziness, headache, numbness 8 point review of systems is negative except for those stated above and HPI Patient History Medical History Anxiety Body posture problem Cervical somatic dysfunction Chronic neck pain with normal neurological examination Depression Lumbar region somatic dysfunction Pelvic somatic dysfunction Sacral region somatic dysfunction Segmental and somatic dysfunction of abdomen and other regions Stiff neck Thoracic region somatic dysfunction Upper extremity somatic dysfunction Surgical History Hx of appendectomy Hx of discectomy Hx of shoulder surgery Status post delivery (12/17/11) Status post loop electrosurgical excision procedure (LEEP) of cervix (11/25/13) Family History Father Hypertension Grandmother Cancer Social History marital status: unknown household members: none Smoking Status: Current every day smoker alcohol intake: never substance use type: does not use Smoking Status: Current every day smoker tobacco type: vaping Substance Use Type: does not use Exam Initial Vital Signs Initial Vital Signs: Vital Signs Temperature 97.4 F L 02/02/21 05:49 Pulse Rate 71 02/02/21 05:49 Respiratory Rate 15 02/02/21 05:49 Blood Pressure 143/92 H 02/02/21 05:49 Pulse Oximetry 99 02/02/21 05:49 GENERAL: Well-appearing, well-nourished and in no acute distress. CARDIOVASCULAR: peripheral pulses in tact, cap refill <2 sec RESPIRATORY: No respiratory distress, speaks in full sentences without difficulty EXTREMITIES: Normal range of motion, no clubbing or edema. Neurovascularly intact Right hand: Decreased range of motion of right middle, noted to be slightly swollen as well however able to fully flex and extend at all PIP and the DIP joints. Left hand: Significant bruising noted on hand mostly the 2nd and 5th fingers able flex and extend all fingers at PIP and the DIP NEUROLOGICAL: Cranial nerves II through XII grossly intact. Normal gait and speech. SKIN: Contusion noted on left hand mostly fingers 1 through 4 Course Orders Ordered: ED Orders 02/02/21 05:53 XR hand LT min 3V Stat XR hand RT min 3V Stat Vital Signs Vital signs: Vital Signs - 8 hr 02/02/21 05:49 Temperature 97.4 F L Pulse Rate 71 Respiratory Rate 15 Blood Pressure 143/92 H Pulse Oximetry 99 MDM - Fall Imaging Data Extremity x-ray #1: Radiologist's Impression: Preliminary report: Normal hand Extremity x-ray #2: Radiologist's Impression: Preliminary report: Normal hand MDM Narrative Medical decision making narrative: Contusions and swollen right middle finger. However she was able to work this evening. Recommend conservative treatment at this time rest ice and NSAIDs. Discharge Plan Departure Patient Disposition: Home Clinical Impression: Other sprain of right middle finger, initial encounter, Contusion of hand, left Instructions: Finger Sprain Activity Restrictions/Additional Instructions: *You have been diagnosed with right middle finger sprain and left hand contusion *What to do: At this time fortunately x-rays are negative. Increase activity as tolerated, rest ice *Continue to take medications as directed Motrin 800 mg every 8 hours if needed for [id number] pain *Follow up with your primary care provider in 2-3 days *Return to ER if you should have increasing pain numbness tingling or weakness or any new, worsening or concerning symptoms Prescriptions: No Action mecobalamin (vitamin B12) 10,000 mcg recon soln SUBCUT RF: 0 lorazepam [Ativan] 0.5 mg tablet 0.5 mg PO DAILY PRNRF: 0 fluoxetine [Prozac] 10 mg capsule 10 mg PO DAILY RF: 0 omeprazole magnesium [Prilosec OTC] 20 mg tablet,delayed release (DR/EC) 20 mg PO DAILY RF: 0 turmeric 400 mg capsule PO RF: 0 Adult 50 Plus Probiotic 4 billion cell capsule PO RF: 0 ondansetron HCl [Zofran] 4 mg tablet 4 mg PO Q8H PRN (Reason: nausea and vomiting) Qty: 20 RF: 0 Referrals: Kirk Holland MD [Primary Care Provider] -
== END 2021-02-02 06:36 | disposition home or self-care (01) ==
PROVIDERS: Emergency Provider Emergency Medicine; PCP Family Medicine
DX: S63.612A Unspecified sprain of right middle finger, initial encounter (principal); S60.222A Contusion of left hand, initial encounter; W19.XXXA Unspecified fall, initial encounter; Y99.0 Civilian activity done for income or pay
CPT/HCPCS: 73130; 99283

== ENCOUNTER → 2021-03-05 07:30 | Outpatient (CLI) | payer OTHER, MEDICAID, SELFPAY ==
[2021-03-05 07:52] LABS: COVID19 -Nasal RAPID Negative (Negative)
== END ==
PROVIDERS: PCP Family Medicine; Visit Provider Physician Assistant
DX: Z20.822 Contact with and (suspected) exposure to COVID-19 (principal)
CPT/HCPCS: 87635

== ENCOUNTER → 2021-03-11 15:37 | Outpatient (CLI) | payer OTHER, MEDICAID, SELFPAY ==
[2021-03-11 17:24] LABS: COVID19 -Nasal RAPID Negative (Negative)
== END ==
PROVIDERS: PCP Family Medicine; Visit Provider Nurse Practitioner Family
DX: Z20.822 Contact with and (suspected) exposure to COVID-19 (principal); J02.9 Acute pharyngitis, unspecified; R05 Cough; R51.9 Headache, unspecified
CPT/HCPCS: 87635

== ENCOUNTER → 2021-07-22 10:30 | Outpatient (CLI) | payer OTHER, MEDICAID, SELFPAY ==
[2021-07-22 12:59] LABS: COVID19 -Nasal RAPID Negative (Negative)
== END ==
PROVIDERS: PCP Family Medicine; Visit Provider Physical Medicine & Rehabilitation
DX: Z20.822 Contact with and (suspected) exposure to COVID-19 (principal)
CPT/HCPCS: 87635; C9803

== ENCOUNTER 2021-07-23 08:24 | Outpatient (CLI) | payer OTHER, MEDICAID, SELFPAY ==
[2021-07-23] VITALS (7 sets, daily range): BP systolic 123–135; BP diastolic 78–95; PULSE 65–89; RESP 15–24; TEMP 35.9; O2SAT 99–100
--- NOTE | 2021-07-23 08:28 | DI.RAD.S_ITS ---
PROCEDURE: PAIN L INTERLAMINAR/CAUDAL INJ INDICATIONS: SPONDYLOSIS COMPARISON: [facility], CR, XR LUMBAR SPINE MIN 4V, 12/31/2020, 17:14. [facility], MR, MR LUMBAR SPINE WO CON, 12/19/2020, 6:54. FINDINGS: Fluoroscopic spot filming was performed to verify placement of a spinal needle at the L5-S1 level, as labeled on the films. Appropriate location of the needle tip was confirmed by injection of iodinated contrast. IMPRESSION: No significant intraprocedural abnormality. Dictated by: Dominik Simpson M.D. on 07/23/2021 at 9:09 Approved by: Dominik Simpson M.D. on 07/23/2021 at 9:09
[2021-07-23] MEDS: MIDAZOLAM 5 MG/5 ML VIAL IV (09:22)
[2021-07-23] MEDS: fentaNYL 100 MCG/2 ML INJ 50 MCG IV (09:22)
[2021-07-23] MEDS: BUPIVACAINE 0.25% (PF) VIAL 2 ML INJ (09:26)
[2021-07-23] MEDS: DEXAMETHASONE 10 MG/ML VIAL 20 MG INJ (09:27)
[2021-07-23] MEDS: IOPAMIDOL 15 ML VIAL 3 ML INJ (09:27)
[2021-07-23] MEDS: BETAMETHASONE 30 MG/5 ML MDV 6 MG INJ (09:27)
--- NOTE | 2021-07-23 09:34 | P.PCN_ITS ---
Date/Time/Diagnoses Date of procedure: 07/23/21 Time of procedure: 09:34 Pre-procedure diagnosis: 1. HNP WITH RADICULAR FEATURES, 2. MULTILEVEL CENTRAL STENOSIS This procedure is found to meet the Governor's proclamation 20-24.2 regarding non urgent procedures. This patient meets multiple criteria for the procedure including continuing or worsening of significant or severe pain, combined with further deterioration of the patient's condition or overall health as well as delay in treatment would be expected to result in less positive ultimate medical outcome. Therefore the decision to perform the procedure in an outpatient hospital setting is found to be in accordance with guidelines of the proclamation. Post-procedure diagnosis: same Procedure Notes Procedure: 1. FLUOROSCOPICALLY GUIDED CONTRAST CONTROLLED INTERLAMINAR EPIDURAL STEROID INJECTION - L5/S1 Indications: Chrissy is referred by Dr. Holland for treatment of Bilateral Foraminal Stenosis L >R LE symptoms. Physician: Kirk Rico Total Fluoroscopy time (seconds): 4 Total sedation minutes: 8 Complications: none Procedure in detail & Post-procedure care: FINDINGS Multilevel Central Spinal Stenosis with Nerve Root Compression DESCRIPTION OF PROCEDURE Fluoroscopically guided, contrast-controlled L5/S1 translaminar epidural steroid injection. Following review of allergy and review of potential side effects and complications, including, but not necessarily limited to, infection, allergic reaction, local tissue breakdown, temporary as well as permanent nerve injury, paralysis, stroke and possible , the patient indicated that the patient understood and agreed to proceed. An informed consent document was signed by the patient, witnessed by a nurse, and placed in the patient's chart. Additionally, other treatment options including modalities, medications, and physical therapy were reviewed with the patient. After review of previous anaesthesic history and IV conscious sedation the [facility] ient was deemed safe to proceed with today?s procedure with IV conscious sedation as ASA class II designation. Safety time-out was performed to confirm patient ID, procedure to be performed and site of procedure. IV sedation was accomplished with a combination of 2mg of Versed and 50mcg of Fentanyl administered by the RN after DO order, titrated to patient comfort during the course of the procedure while the patient remained responsive to all verbal commands. In the prone position, following sterile prep and drape of the lumbar region, the L5/S1 translaminar space was identified fluoroscopically. The skin was anesthetized via a 25-gauge, 1.5-inch needle with 1% lidocaine solution. At this point, a 22-gauge short bevel spinal needle was atraumatically introduced and advanced under fluoroscopic guidance into the region of the L5/S1 translaminar space. Depth was confirmed on lateral view. Radiological data, including multiple fluoroscopic views of the lumbar spine, reveal a spinal needle at the L5/S1 translaminar space. Lateral views then show placement of the needle in the epidural space. Subsequent views show contrast material flowing superiorly and inferiorly in the epidural space. No vascular or intrathecal uptake is observed. At this point, using loss of resistance technique with saline and air, the epidural space was entered. This was confirmed following negative aspiration with injection of approximately 1.5cc of Isovue 200, showing excellent epidural flow without vascular or intrathecal uptake. At this point, 1 cc of 1% lidocaine solution combined with 3cc or 20mg of dexamethasone and 6mg of betamethasone was injected without incident. The patent tolerated the procedure without signs of symptoms of complications prior to transfer to the recovery area for further monitoring. The patient was then transferred to the recovery area where they were observed for an appropriate period of time after the injection. The patient reported a VAS score of 6 prior to the procedure and a post-procedure VAS of 0. POST OP INSTRUCTIONS The patient was provided a Pain Log to continue to record their response to the target-specific procedure prior to follow-up visit with their referring physician. Additionally, specific post-injection care instructions and a contact number to our office were provided if concerns arise regarding possible complications associated with the procedure are suspected.
== END 2021-07-23 10:05 | disposition home or self-care (01) ==
LOC: RAD 08:27
PROVIDERS: PCP Family Medicine; Referring Provider Physical Medicine & Rehabilitation; Visit Provider Physical Medicine & Rehabilitation
DX: M51.17 Intervertebral disc disorders with radiculopathy, lumbosacral region (principal); M48.07 Spinal stenosis, lumbosacral region
CPT/HCPCS: 62323; J0702; J1100; J2250; J3010

== ENCOUNTER → 2021-08-01 13:06 | Outpatient (CLI) | payer OTHER, MEDICAID, SELFPAY ==
[2021-08-01 15:03] LABS: BUN Creatinine Ratio 23.2 (6-22); Blood Urea Nitrogen 16 mg/dL (7-17); Calcium 9.2 mg/dL (8.4-10.2); Carbon Dioxide 28 mmol/L (22-32); Chloride 104 mmol/L (98-107); Estimated Glomerular Filt Rate > 60.0 mL/min (>60); Glucose 66 mg/dL (70-100); HEMOLYSIS 24 (0-50); Potassium 4.2 mmol/L (3.4-5.1); Sodium 137 mmol/L (137-145)
[2021-08-01 15:31] LABS: Vitamin D 25 Hydroxy (D3) 28.6 ng/mL (30.0-100.0)
[2021-08-01 15:40] LABS: Ferritin 18 ng/mL (6-137)
[2021-08-01 16:11] LABS: Folate 8.4 ng/mL (2.76-20.0); Vitamin B12 928 pg/mL (239-931)
[2021-08-06 10:55] LABS: Alpha-Tocopherol 8.7 mg/L (5.9-19.4); Gamma-Tocopherol 1.3 mg/L (0.7-4.9)
[2021-08-06 12:11] LABS: Vitamin A 60.9 ug/dL (18.9-57.3)
== END ==
PROVIDERS: PCP Family Medicine; Referring Provider Nurse Practitioner Adult Health; Visit Provider Nurse Practitioner Adult Health
DX: K90.9 Intestinal malabsorption, unspecified (principal)
CPT/HCPCS: 36415; 80048; 82306; 82607; 82728; 82746; 84446; 84590

== ENCOUNTER → 2022-02-25 13:49 | Outpatient (CLI) | payer OTHER, MEDICAID, SELFPAY ==
--- NOTE | 2022-02-25 | DI.MRI.S_ITS ---
PROCEDURE: MR CERVICAL SPINE WO CON INDICATIONS: Cervicalgia TECHNIQUE: Noncontrast sagittal T1 spin echo and T2 fast spin echo, sagittal STIR, foraminal oblique sagittal T2 fast spin echo, and axial gradient echo or T2 fast spin echo through the cervical spine. COMPARISON: [facility], CR, XR CERVICAL SPINE 2V OR 3V, 06/13/2020, 14:35. FINDINGS: Image quality: This examination is limited by involuntary motion artifact. Alignment and Curvature: There is normal bony alignment. Bone Marrow: Marrow demonstrates normal overall signal. Spinal Cord: Visualized spinal cord has normal size and signal. No cerebellar tonsillar herniation. Paraspinous Soft Tissues: No paravertebral masses. Prevertebral soft tissues are normal in thickness. C2-C3: Normal appearance. C3-C4: Normal appearance. C4-C5: Normal appearance. C5-C6: Normal appearance. C6-C7: Normal appearance. C7-T1: Normal appearance. IMPRESSION: No significant MRI abnormality is seen. Dictated by: Dominik Simpson M.D. on 02/25/2022 at 14:31 Approved by: Dominik Simpson M.D. on 02/25/2022 at 14:32
== END ==
PROVIDERS: PCP Family Medicine; Referring Provider Family Medicine; Visit Provider Family Medicine
DX: M54.2 Cervicalgia (principal)
CPT/HCPCS: 72141